=== PATIENT | male | born 1955 | race Two or more races ===

== ENCOUNTER → 2018-03-05 12:08 | Outpatient (CLI) | payer BC, SELFPAY ==
[2018-03-05 13:12] LABS: Anion Gap 9 (5-15); BUN 23 mg/dL (7-18); BUN/Creat Ratio 20.4 RATIO (10-20); Calcium,Total 9.4 mg/dL (8.5-10.1); Chloride 105 mmol/L (98-107); Creatinine, Serum 1.13 mg/dL (0.70-1.30); EST Glomerular Filtration Rate 70 mL/min (>60); Est Glom Filt Rate - Afr Amer 85 mL/min (>60); Glucose 106 mg/dL (74-106); Potassium 4.5 mmol/L (3.5-5.1); Sodium Level 142 mmol/L (136-145)
[2018-03-05 15:39] LABS: Hematocrit 41.6 % (40-54); Hemoglobin 14.1 g/dl (13.0-16.5); Mean Corp Hgb Conc 33.9 g/gl (32-36); Mean Corpuscular Hgb 32.9 pg (27.0-32.0); Mean Platelet Vol. 11.2 fl (6.2-12.0); Platelet Count 234 K/mm3 (150-450); RBC Distribution Width CV 14.4 % (11.6-14.6); RBC Distribution Width SD 49.4 fl (35.1-43.9); Red Blood Count 4.29 M/mm3 (4.6-6.2); White Blood Count 6.6 K/mm3 (4.4-11.0)
[2018-03-05 15:41] LABS: Scan Indicated on CBC? Y/N NO
== END ==
PROVIDERS: Family Provider Family Medicine; PCP Family Medicine
DX: I25.709 Atherosclerosis of coronary artery bypass graft(s), unspecified, with unspecified angina pectoris (principal)
CPT/HCPCS: 36415; 80048; 85027

== ENCOUNTER → 2019-04-05 11:57 | Outpatient (CLI) | payer BC, SELFPAY ==
[2019-04-05 11:31] VITALS: BMI 35.6
--- NOTE | 2019-04-05 12:01 | RAD_ITS ---
STUDY: X-RAY CHEST REASON FOR EXAM: Male, 64 years old. Cough. TECHNIQUE: PA and lateral views of the chest. COMPARISON: None. FINDINGS: Mild degree of vascular congestion and increased interstitial markings at the bases suggestive of mild CHF. There is no demonstrated pleural abnormality. Sternal cerclage wires and vascular clips are present from a prior sternotomy and coronary artery bypass graft procedure (CABG). Normal mediastinum and kaycee. Normal visualized pulmonary arteries. There is atherosclerotic calcification of the aortic arch with tortuosity. There are mild degenerative changes of the visualized thoracic spine. Normal visualized ribs, clavicles, and shoulders. There is no demonstrated abnormality of the visualized soft tissue structures of the upper abdomen. RAD/Chest PA and Lateral IMPRESSION: Findings suggest a mild degree of CHF. Electronically Signed: Sergio Bolivar, at 12:58 EDT , Service support ,
== END ==
PROVIDERS: Family Provider Family Medicine; PCP Family Medicine; Referring Provider Physician Assistant Surgical; Visit Provider Physician Assistant Surgical
DX: R05 Cough (principal)
CPT/HCPCS: 71046

== ENCOUNTER → 2019-04-26 12:37 | Outpatient (CLI) | payer BC, SELFPAY ==
[2019-04-05 11:31] VITALS: BMI 35.6
--- NOTE | 2019-04-26 12:40 | ECHOCS_ITS ---
Reason For Study: CHF Procedure This was a 2D Doppler, Color Flow transthoracic echocardiogram. Exam performed in department. Left Ventricle Normal LV size. Left ventricular systolic function is normal. The estimated ejection fraction is 60 %. Stage 1 diastolic dysfunction. No regional wall motion abnormalities noted. Right Ventricle Normal RV size. Normal systolic function. Atria Normal left atrium. Normal right atrium. Mitral Valve Normal mitral valve. Tricuspid Valve Normal tricuspid valve. Aortic Valve Trisinus/trileaflet aortic valve. Pulmonic Valve Normal pulmonic valve. Great Vessels Normal aortic root. The pulmonary artery is normal size. Normal inferior vena cava. Pericardium/Pleural No pericardial effusion. Medication 22 gauge I.V. with prn adaptor inserted into right arm. Diluted definity 4ml given slow IV push to enhance endocardial definition. MMode/2D Measurements & Calculations LVIDd: 5.6 cm IVSd: 1.2 cm Ao root diam: 3.3 cm LVIDs: 3.7 cm LVPWd: 1.1 cm RVDd: 4.2 cm FS: 33.8 % LAV(MOD-bp): 41.0 ml LVAd ap4: 29.6 cm2 SV(MOD-sp4): 46.4 ml LAV(MOD-bp) Indexed: 17.1 ml/m2 EDV(MOD-sp4): 87.9 ml LAV(MOD-sp2): 36.0 ml EDV(sp4-el): 93.0 ml LAV(MOD-sp4): 40.5 ml LVAs ap4: 18.9 cm2 ESV(MOD-sp4): 41.6 ml ESV(sp4-el): 42.6 ml EF(MOD-sp4): 52.7 % EF(sp4-el): 54.2 % SV(sp4-el): 50.4 ml LA A4 area: 16.8 cm2 LA dimension(2D): 4.1 cm RA A4 area: 13.1 cm2 Time Measurements MV dec time: 0.29 sec Doppler Measurements & Calculations MV E max carlos: 59.4 cm/sec Lat Peak E' Carlos: 10.7 cm/sec Med Peak E' Carlos: 9.4 cm/sec MV A max carlos: 77.5 cm/sec E/E' lat: 5.6 E/E' med: 6.3 MV E/A: 0.77 Ao V2 max: 159.3 cm/sec LV V1 max: 154.4 cm/sec PA V2 max: 149.3 cm/sec Ao max P.1 mmHg LV V1 max P.5 mmHg Interpretation Summary Normal LV size. Left ventricular systolic function is normal. The estimated ejection fraction is 60 %. Stage 1 diastolic dysfunction. Contrast injection was performed. Ordering Physician: Erika Faye Referring Physician: Erika Faye Performed By: Laurie Hart RDCS
== END ==
PROVIDERS: Family Provider Family Medicine; PCP Family Medicine; Referring Provider Family Medicine; Visit Provider Family Medicine
DX: I50.9 Heart failure, unspecified (principal)
CPT/HCPCS: 93306; Q9957; A4216; C8929

== ENCOUNTER 2019-08-11 11:36 | Emergency (ER) | payer BC, SELFPAY ==
[2019-04-05 11:31] VITALS: BMI 35.6
[2019-08-11 11:37] VITALS: BP 155/79; PULSE 86; RESP 17; TEMP 36.4; O2SAT 94; BMI 34.3
--- NOTE | 2019-08-11 12:16 | ED.DCSUM_ITS ---
History of Present Illness Chief Complaint: Nosebleed Informant: Patient Onset: Today Context: Sudden Onset Timing: Intermittent Narrative: Patient is a 64-year-old male with history of coronary artery disease on Plavix and aspirin presenting for nosebleed. He states he was blowing his nose at 1 AM and suddenly started bleeding from the right side. Is been bleeding intermittently since then. He states he has had some large clots in his nose. He denies any other complaints. He states he does feel like he swallowed some of the blood and is now printed out. He denies any shortness of breath, chest pain or lightheadedness. Past Medical History - Allergies and Home Meds Allergies/Adverse Reactions: Allergies No Known Allergies Allergy (Verified 08/11/19 11:36) Primary Care Physician: Erika Faye MD [Primary Care Provider] - Past Medical History: - - Coronary artery disease, hypertension Surgical History: angioplasty, coronary bypass surgery Smoking Status: Current every day smoker Review of Systems General: Denies: Chills, Fever, Sweats Eyes: Denies: Visual changes - bilaterally, Diplopia ENT: Reports: Rhinorrhea, - - Epistaxis. Denies: Sore throat Cardiovascular: Denies: Chest pain, Palpitations Respiratory: Reports: Cough. Denies: Dyspnea, Dyspnea on exertion Gastrointestinal: Denies: Abdominal pain, Nausea, Vomiting, Diarrhea, Melena, Hematochezia Genitourinary: Denies: Dysuria, Hematuria, Frequency Musculoskeletal: Denies: Back pain, Extremity Pain Skin: Denies: Rash, Wounds Neurological: Denies: Headache, Weakness, Numbness Physical Exam Vital Signs/Narrative: Vital Signs Temp Pulse Resp BP Pulse Ox 08/11/19 11:37 97.6 F L 86 17 155/79 H 94 Inital Vital Signs reviewed: Yes General: Well nourished, Well developed, No Acute Distress Head: Normocephalic, Atraumatic Eyes: Perrl, EOMI ENT: Moist mucous membranes, No rhinorrhea, TM's clear, Nasal congestion, - - Anterior septal bleeding noted from the right nares, clot noted in the back of the throat that is expectorated. No posterior bleeding visualized Neck: Supple, Nontender Cardiovascular: Regular rate, Regular rhythm, No murmurs Respiratory: No distress, CTA bilaterally, Chest nontender Abdomen: Soft, Nontender, Nondistended, Normal bowel sounds Back: Nontender, Normal Inspection Extremities: Nontender, No edema Skin: Normal color, No rash Neurological: Alert, Oriented x3, Cranial nerves II-XII grossly intact, Normal Strength, Normal Sensation Psychological: Normal affect, Normal Mood Diagnostic/Tx/Re-eval - Medical Decision Making Patient is evaluated for epistaxis. He appears to have epistaxis on the left side anteriorly. Afrin is applied as well as Matthus solution. Direct pressure is held. Patient did use a bleeding. The area of bleeding is visualized and I did attempt to cauterize it with silver nitrate however this was unsuccessful. A 5.5 cm anterior nasal packing was placed. Patient tolerated this well. No further bleeding. He is ambulated with no further bleeding. He was discharged home in a course of Augmentin. Patient is offered a prescription for tramadol or [place] for pain control with a nasal packing in place but declines. He does take Tylenol in the emergency room. Patient states he will hold his evening dose of Plavix tonight. This seems reasonable as extensive been in for 10 years. He will resume taking his Plavix tomorrow. Patient is counseled on signs and symptoms requiring return to the emergency room. Patient verbalizes agreement and understand this plan. Patient discharged home in stable and improved condition. ED Disposition - Plan for ED Patient: Disposition: Home or Assisted Living Diagnosis: Epistaxis Instructions: Nosebleed Prescriptions: Amox/Clavulanate Tablet [Augmentin Tablet] 875 mg PO Q12H #20 tab Prescription Printed Referrals: Erika Faye MD [Primary Care Provider] - Ezio Handley MD [STAFF PHYSICIAN] - Additional Instructions: Please call Dr. Handley, ENT for follow-up of your nasal packing. Your primary care doctor can also remove it if needed. Alternate Tylenol and ibuprofen as needed for discomfort from the packing. Take antibiotics while the packing is in place. Return the emergency room with any worsening symptoms or further bleeding.
[2019-08-11] MEDS: Mixture 30 ML Bottle 10 ML TOPICAL (12:39)
[2019-08-11] MEDS: Acetaminophen 500 MG Tablet 1000 MG PO (13:21)
[2019-08-11 14:10] VITALS: O2SAT 98
== END 2019-08-11 14:12 | disposition home or self-care (01) ==
PROVIDERS: Emergency Provider Emergency Medicine; PCP Family Medicine
DX: R04.0 Epistaxis (principal); I25.10 Atherosclerotic heart disease of native coronary artery without angina pectoris; I10 Essential (primary) hypertension; F17.200 Nicotine dependence, unspecified, uncomplicated; Z79.84 Long term (current) use of oral hypoglycemic drugs; Z79.02 Long term (current) use of antithrombotics/antiplatelets; Z79.82 Long term (current) use of aspirin; Z79.899 Other long term (current) drug therapy; Z95.1 Presence of aortocoronary bypass graft
CPT/HCPCS: 30901; 99283; A4216

== ENCOUNTER 2020-08-29 07:02 | Outpatient (RCR) | payer BC, SELFPAY ==
[2020-08-29] MEDS: COVID-19 VACC, MRNA(PFIZER)/PF 30 MCG/0.3 ML SYRINGE IM (12:11)
[2020-09-19] MEDS: COVID-19 VACC, MRNA(PFIZER)/PF 30 MCG/0.3 ML SYRINGE IM (12:02)
== END 2020-08-29 23:59 ==
LOC: IMMUN 07:02
PROVIDERS: PCP Family Medicine; Visit Provider Family Medicine
DX: Z23 Encounter for immunization (principal)
CPT/HCPCS: 0001A; 0002A; 91300

== ENCOUNTER 2022-11-03 13:50 | Inpatient (IN) | payer BC, MEDICARE, SELFPAY ==
[2022-11-03] VITALS (13 sets, daily range): BP systolic 105–133; BP diastolic 56–70; PULSE 72–96; RESP 17–22; TEMP 35.9–38; O2SAT 80–94; BMI 32.3; BMI 32.0
--- NOTE | 2022-11-03 14:00 | EKG12_ITS ---
Test Reason : Blood Pressure : / mmHG Vent. Rate : 087 BPM Atrial Rate : 087 BPM P-R Int : 144 ms QRS Dur : 138 ms QT Int : 384 ms P-R-T Axes : 021 061 -32 degrees QTc Int : 462 ms Normal sinus rhythm Possible Left atrial enlargement Right bundle branch block Inferior infarct , age undetermined Abnormal ECG Confirmed by DILAN ALCARAZ, ELROY ([id number]), acquisition editor ADY HATFIELD ([id number]) on 11/04/2022 10:18:23 AM Referred By: ALFONSO Confirmed By:ELROY KONG MD
--- NOTE | 2022-11-03 14:00 | RAD_ITS ---
INDICATION: cough EXAMINATION/TECHNIQUE: X-RAY - XR Chest 2 Views COMPARISON: 04/05/2019 FINDINGS: Chronic interstitial lung changes. Sternal cerclage wires and vascular clips are present from a prior sternotomy and coronary artery bypass graft procedure (CABG). The heart is not enlarged. Tortuous and calcified thoracic aorta. No pleural effusion or pneumothorax. Degenerative changes of the thoracic spine. RAD/Chest PA and Lateral IMPRESSION: Chronic lung changes. Cannot rule out an acute interstitial component. Electronically Signed: Alden Gramajo MD at 15:23 EDT ,
--- NOTE | 2022-11-03 14:05 | EDS_ITS ---
HPI <ACACIA Roberts - Last Filed: 11/03/22 16:34> History of Present Illness Chief Complaint: Shortness of Breath Narrative Narrative: Patient is a 67-year-old male with history of CAD, stage I CHF, hypertension, diabetes, COPD who smokes 1 pack/day presents to the emergency department with 3 to 4 days of worsening cough, congestion, body aches, shortness of breath. Patient states he does have low-grade fever. He was at the [facility], was negative for COVID-19. He states that he is coughing however is clear sputum. He was 88% on room air here. He has worsening shortness of breath on exertion. He denies any nausea or vomiting. Denies any sick contacts. PFS <ACACIA Roberts - Last Filed: 11/03/22 16:34> [facility] Medical History (Updated 11/03/22 @ 16:[address] Ezio Lomeli, DO) COPD (chronic obstructive pulmonary disease) Diabetes mellitus, type 2 H/O hemorrhoids Heart disease Hypertension RUTH (obstructive sleep apnea) Home Medications aspirin 81 mg tablet,delayed release (Adult Aspirin Regimen) 81 mg PO DAILY heart health 04/05/19 [History Last Taken Unknown] atorvastatin 20 mg tablet 40 mg PO DAILY cholestrol 04/05/19 [History Last Taken Unknown] clopidogrel 75 mg tablet (Plavix) 75 mg PO DAILY Anti platelet 04/05/19 [History Last Taken Unknown] ipratropium 0.5 mg-albuterol 2.5 mg/2.5 mL solution for nebulization 2.5 ml continuous nebulization ONCE ##1 04/05/19 [Clinic Last Taken Unknown] isosorbide dinitrate 5 mg tablet 30 mg PO DAILY Blood pressure 04/05/19 [History Last Taken Unknown] lisinopril 2.5 mg tablet 5 mg PO DAILY blood pressure 04/05/19 [History Last Taken Unknown] metformin 1,000 mg tablet 850 mg PO BID diabetes 04/05/19 [History Last Taken Unknown] ranolazine 1,000 mg tablet,extended release,12 hr (Ranexa) 1,000 mg PO BID blood thinner 04/05/19 [History Last Taken Unknown] Allergy/AdvReac Type Severity Reaction Status Date / Time No Known Allergies Allergy Verified 11/03/22 13:51 Surgical History Bypass graft stenosis H/O heart artery stent Social History (Updated 04/05/19 @ 15:05 by Tez KEITA, PA) Smoking Status: Current every day smoker tobacco type: cigarettes ROS <ACACIA Roberts - Last Filed: 11/03/22 16:34> ROS ED ROS Narrative Constitutional: Negative for weight loss, weakness. Positive for fever and chills Eyes: Negative for vision loss, vision change, double vision ENT: Negative for any sore throat, ear pain, congestion Cardiovascular: Negative for any chest pain, tightness, palpitations Respiratory: Negative for any c hemoptysis.positive for cough, sputum production, positive for dyspnea, dyspnea on exertion, orthopnea Gastrointestinal: Negative for any abdominal pain, nausea, vomiting, diarrhea, constipation, blood in stool, blood in vomit : Negative for any urinary frequency, dysuria, retention, blood in urine Muscle skeletal: Negative for any muscle joint pain, stiffness, myalgias, arthralgias, neck pain, back pain Neurological: Negative for any headache, syncope, numbness or tingling, dizziness Skin: Negative for any rashes, lumps, itching, abrasions, lacerations Psychiatric: Negative for any depression, anxiety, stress, suicidal ideation, homicidal ideation Hematologic: Negative for any easy bruising, excessive bruising, easy bleeding Allergies: Negative for any eczema, hives, rash EXAM <ACACIA Roberts - Last Filed: 11/03/22 16:34> Physical Exam Narrative Exam Narrative: Vital signs reviewed Patient was 88% on room air upon initial arrival however after sitting he was 91%. Oral temp was negative for any fever at this time. Patient looks to be in mild distress secondary to cough, shortness of breath. He is able speak complete sentences. HEET: Head normocephalic atraumatic, TMs clear bilaterally. Posterior pharynx is clear, moist mucous membranes. Nares clear bilaterally. Neck: Supple with no lymphadenopathy or tenderness. No signs of meningismus, negative jolt sign. Cardiac: Regular rate and rhythm no murmurs gallops or rubs, equal peripheral pulses bilaterally. Respiratory: Lungs clear to auscultation bilaterally. No chest tenderness. Diminished in bilateral bases, no wheezing on initial exam Abdomen: Soft, nontender, nondistended. No abdominal bruit or pulsatile masses. No hepatosplenomegaly Extremities: No peripheral edema, no signs of gross trauma or deformity. Active full range of motion of all extremities. Neuro: Cranial nerves II through XII intact, no focal neurological deficits. Skin: Clean dry and intact with no rash, purpura, petechiae, vesicles or pustules. Backs/flank: No CVA tenderness, no midline spinal tenderness, no deformity. Psych: Normal mood and affect. No SI, HI or acute psychosis. Const Vital Signs: 11/03/22 13:51 11/03/22 14:17 11/03/22 14:22 Temperature 99.1 F Temperature Source Temporal Pulse Rate 87 89 Respiratory Rate 18 22 H Respiratory Effort Short of Breath Respiratory Pattern Normal Tachypnea Blood Pressure 133/68 H Blood Pressure Mean 89 Pulse Ox 88 Oxygen Delivery Method Room Air Nasal Cannula Oxygen Flow Rate (L/min) 3 11/03/22 15:58 11/03/22 16:06 Temperature Temperature Source Pulse Rate 96 Respiratory Rate 20 H Respiratory Effort Respiratory Pattern Normal Blood Pressure Blood Pressure Mean Pulse Ox 80 Oxygen Delivery Method Room Air Oxygen Flow Rate (L/min) Positive well nourished <Dr. Damian Callaway DO - Last Filed: 11/03/22 17:16> Physical Exam Const Vital Signs: 11/03/22 13:51 11/03/22 14:17 11/03/22 14:22 Temperature 99.1 F Temperature Source Temporal Pulse Rate 87 89 Respiratory Rate 18 22 H Respiratory Effort Short of Breath Respiratory Pattern Normal Tachypnea Blood Pressure 133/68 H Blood Pressure Mean 89 Pulse Ox 88 Oxygen Delivery Method Room Air Nasal Cannula Oxygen Flow Rate (L/min) 3 11/03/22 15:58 11/03/22 16:06 Temperature Temperature Source Pulse Rate 96 Respiratory Rate 20 H Respiratory Effort Respiratory Pattern Normal Blood Pressure Blood Pressure Mean Pulse Ox 80 Oxygen Delivery Method Room Air Oxygen Flow Rate (L/min) MDM <ACACIA Roberts - Last Filed: 11/03/22 16:34> MDM Lab Data Labs: Laboratory Results - last 24 hr 11/03/22 11/03/22 11/03/22 14:10 14:10 14:10 WBC 7.6 RBC 4.27 L Hgb 15.0 Hct 42.9 MCV 100.5 H MCH 35.1 H MCHC 35.0 RDW Std Deviation 57.1 H RDW Coeff of Olu 15.4 H Plt Count 172 MPV 11.0 Immature Gran % (Auto) 0.100 Neut % (Auto) 81.5 H Lymph % (Auto) 8.1 L [place] % (Auto) 9.9 Eos % (Auto) 0.0 Baso % (Auto) 0.4 Absolute Neuts (auto) 6.2 Absolute Lymphs (auto) 0.62 L Nucleated RBC % 0 Sodium 138 Potassium 4.4 Chloride 105 Carbon Dioxide 25.0 Anion Gap 8 BUN 22 H Creatinine 1.31 H Estim Creat Clear Calc 62.69 Est GFR (MDRD) Af Amer 70 Est GFR (MDRD) Non-Af 58 L BUN/Creatinine Ratio 16.8 Glucose 134 H Calcium 9.0 Troponin I High Sens 28 B-Natriuretic Peptide 60.5 Radiography Diagnostic Testing: Clinical Impression(s) from Imaging Studies Chest X-Ray 11/03/22 14:00 IMPRESSION: Chronic lung changes. Cannot rule out an acute interstitial component. Electronically Signed: Alden Gramajo MD at 15:23 EDT , EKG EKG shows normal sinus rhythm, rate of 87 bpm right bundle branch block: Attestation: I personally reviewed and interpreted this EKG as follows: Comments: EKG shows 87 bpm, OR interval 144 ms, QRS duration 138 ms, no acute ST elevation, no acute infarct noted. Treatment and Re-Evaluation :: All radiologic examinations were read, reviewed by the emergency department attending. From these reads, a plan of care will be put in place. Patient appears to be in mild respiratory distress, patient was 88% on room air, he was placed on the monitor, he has been feeling unwell for the last 3 to 4 days. Patient will receive a full respiratory work-up, laboratory values, two- view chest x-ray. He will receive 2 breathing treatment as well as oral steroids. Patient will receive a respiratory panel secondary to his hypoxia and possible admission. Patient denies any specific chest pain. Patient's chest x-ray shows chronic lung changes, patient's patient's laboratory values show a normal CBC, patient's chemistries show slight renal sufficiency with a creatinine of 1.3, in 2017 in February he was 1.13. Patient did receive 2 breathing treatments, steroids by mouth. On reassessment, the patient was still 85 to 87%. However he had much more wheezing than original exam. Patient was ordered 2 more breathing treatments. Patient did receive a rapid respiratory panel, this is yet to come back. This is concerning for any metapneumovirus, influenza, COVID type viruses. Patient is still hypoxic, still looks to be in minimal distress. I do believe the patient would benefit from admission. I spoke with the patient he is agreeable. Talk with the hospitalist, he is agreeable for admission for COPD exacerbation, hypoxia. <Dr. Damian Callaway, DO - Last Filed: 11/03/22 17:16> [facility] Narrative Medical decision making narrative: Patient appears to be in mild respiratory distress, patient was 88% on room air, he was placed on the monitor, he has been feeling unwell for the last 3 to 4 da ys. Patient will receive a full respiratory work-up, laboratory values, two- view chest x-ray. He will receive 2 breathing treatment as well as oral steroids. Patient will receive a respiratory panel secondary to his hypoxia and possible admission. Patient denies any specific chest pain. Patient's chest x-ray shows chronic lung changes, patient's patient's laboratory values show a normal CBC, patient's chemistries show slight renal sufficiency with a creatinine of 1.3, in 2017 in February he was 1.13. Patient did receive 2 breathing treatments, steroids by mouth. On reassessment, the patient was still 85 to 87%. However he had much more wheezing than original exam. Patient was ordered 2 more breathing treatments. Patient did receive a rapid respiratory panel, this is yet to come back. This is concerning for any metapneumovirus, influenza, COVID type viruses. Patient is still hypoxic, still looks to be in minimal distress. I do believe the patient would benefit from admission. I spoke with the patient he is agreeable. Talk with the hospitalist, he is agreeable for admission for COPD exacerbation, hypoxia. This patient was seen with a PA/[employer] DEVELOPER Individually assessed they patient including history and physical. I have reviewed everything on the chart that is available and agree with the documentation provided by the PA/[employer] DEVELOPER including discussion about the assessment, treatment plan, discussion, and return precautions. 67-year-old gentleman presenting with shortness of breath. He is treated with breathing treatments and Solu-Medrol. Patient noted to be hypoxic on arrival 88. After treatments he still hypoxic and dropped down to 80 just sitting. Breathing treatments did open him up however. Viral respiratory panel came back and shows parainfluenza virus. Patient admitted in stable condition. Lab Data Attestation: I reviewed the patient's lab results. Labs: Laboratory Results - last 24 hr 11/03/22 11/03/22 11/03/22 14:10 14:10 14:10 WBC 7.6 RBC 4.27 L Hgb 15.0 Hct 42.9 MCV 100.5 H MCH 35.1 H MCHC 35.0 RDW Std Deviation 57.1 H RDW Coeff of Olu 15.4 H Plt Count 172 MPV 11.0 Immature Gran % (Auto) 0.100 Neut % (Auto) 81.5 H Lymph % (Auto) 8.1 L [place] % (Auto) 9.9 Eos % (Auto) 0.0 Baso % (Auto) 0.4 Absolute Neuts (auto) 6.2 Absolute Lymphs (auto) 0.62 L Nucleated RBC % 0 Sodium 138 Potassium 4.4 Chloride 105 Carbon Dioxide 25.0 Anion Gap 8 BUN 22 H Creatinine 1.31 H Estim Creat Clear Calc 62.69 Est GFR (MDRD) Af Amer 70 Est GFR (MDRD) Non-Af 58 L BUN/Creatinine Ratio 16.8 Glucose 134 H Calcium 9.0 Troponin I High Sens 28 B-Natriuretic Peptide 60.5 Radiography Diagnostic Testing: Clinical Impression(s) from Imaging Studies Chest X-Ray 11/03/22 14:00 IMPRESSION: Chronic lung changes. Cannot rule out an acute interstitial component. Electronically Signed: Alden Gramajo MD at 15:23 EDT , All radiologic examinations were read, reviewed by the emergency department attending. From these reads, a plan of care will be put in place. Discharge Plan Triage Chief Complaint: Shortness of Breath Other Complaint: Fever ED Midlevel Provider: Efra Luciano ED Provider: Damian Callaway Dx/Rx/DC Orders Clinical Impression: Acute exacerbation of chronic obstructive pulmonary disease, Hypoxia Primary Care Provider: Erika Faye Disposition Disposition: Home, Self Care
--- NOTE | 2022-11-03 14:08 | ED.RN ---
NO OLD EKGS
[2022-11-03 14:18] LABS: Absolute Lymphocyte Count 0.62 X10^3/uL (0.83-4.51); Absolute Neutrophil Count 6.2 X10^3/uL (2.0-7.7); Basophil# 0.03 X10^3/uL; Basophil% 0.4 % (0-1); Hematocrit 42.9 % (40-54); Lymphocyte # 0.62 X10^3/ul (0.83-4.51); Lymphocyte % 8.1 % (19-41); Mean Corpuscular Hgb 35.1 pg (27.0-32.0); Mean Corpuscular Volume 100.5 fL (80-94); Monocyte# 0.76 X10^3/uL; Monocyte% 9.9 % (0-10); NRBC Flagged by Analyzer 0 % (0-5); Neutrophil # 6.22 X10^3/uL (2.7-7.7); Neutrophil % 81.5 % (47-70); Platelet Count 172 K/mm3 (150-450); RBC Distribution Width CV 15.4 % (11.6-14.6); RBC Distribution Width SD 57.1 fl (35.1-43.9); Red Blood Count 4.27 M/mm3 (4.6-6.2); White Blood Count 7.6 K/mm3 (4.4-11.0)
[2022-11-03] MEDS: Albuterol 2.5 MG/3 ML VIAL.NEB. INHALATION ×2 (14:22→16:06)
[2022-11-03] MEDS: Ipratropium/Albuterol Sulfate 3 ML AMPUL.NEB INHALATION ×4 (14:22→22:56)
[2022-11-03 14:32] LABS: BNP,B-Type NATRIURETIC PEPTIDE 60.5 pg/mL (0-100)
[2022-11-03 14:35] LABS: Anion Gap 8 (5-15); BUN 22 mg/dL (7-18); BUN/Creat Ratio 16.8 RATIO (10-20); Chloride 105 mmol/L (98-107); Creatinine, Serum 1.31 mg/dL (0.70-1.30); EST Glomerular Filtration Rate 58 mL/min (>60); Est Glom Filt Rate - Afr Amer 70 mL/min (>60); Estimated Creatinine Clearance 62.69 ml/min; Glucose 134 mg/dL (74-106); Potassium 4.4 mmol/L (3.5-5.1); Sodium Level 138 mmol/L (136-145); Troponin-I HS 28 pg/mL (3.0-78.0)
[2022-11-03] MEDS: predniSONE 20 MG Tablet 40 MG PO (14:48)
--- NOTE | 2022-11-03 16:27 | HP.PCM.HOS_ITS ---
[facility] - General General Date of Service: 11/03/22 Chief Complaint: shortness of breath. HPI Narrative DENISE HARDIN, is a 67 M who presents with shortness of breath. Over the past few days, patient has just been short of breath. Is coughing which is productive but for clear phlegm. No fever or chills. Patient presented to an urgent care today and was noted to be hypoxic. They did check him for COVID-19 there and was reportedly negative. The ER physician and the patient told me. Patient was wheezing and was hypoxic with pulse ox around 84%. Patient was placed on oxygen and received 40 mg of prednisone as well as bronchodilators. He is currently feeling better. Patient states that he is never been hospitalized for his COPD. [facility] Medical History (Updated 11/03/22 @ 16:[address] Ezio Lomeli DO) COPD (chronic obstructive pulmonary disease) Diabetes mellitus, type 2 H/O hemorrhoids Heart disease Hypertension RUTH (obstructive sleep apnea) Home Medications aspirin 81 mg tablet,delayed release (Adult Aspirin Regimen) 81 mg PO DAILY 04/05/19 [History Last Taken Unknown] atorvastatin 20 mg tablet 20 mg PO DAILY 04/05/19 [History Last Taken Unknown] clopidogrel 75 mg tablet (Plavix) 75 mg PO DAILY 04/05/19 [History Last Taken Unknown] ipratropium 0.5 mg-albuterol 2.5 mg/2.5 mL solution for nebulization 2.5 ml continuous nebulization ONCE ##1 04/05/19 [Clinic Last Taken Unknown] isosorbide dinitrate 5 mg tablet 5 mg PO BID 04/05/19 [History Last Taken Unknown] lisinopril 2.5 mg tablet 2.5 mg PO DAILY 04/05/19 [History Last Taken Unknown] metformin 1,000 mg tablet 1,000 mg PO DAILY 04/05/19 [History Last Taken Unknown] ranolazine 1,000 mg tablet,extended release,12 hr (Ranexa) 1,000 mg PO BID 04/05/19 [History Last Taken Unknown] amoxicillin 875 mg-potassium clavulanate 125 mg tablet 875 mg PO Q12H #20 tabs 08/11/19 [Rx Last Taken Unknown] Allergy/AdvReac Type Severity Reaction Status Date / Time No Known Allergies Allergy Verified 11/03/22 13:51 Surgical History Bypass graft stenosis H/O heart artery stent Social History (Updated 04/05/19 @ 15:05 by Tez KEITA, NEELA) Smoking Status: Current every day smoker tobacco type: cigarettes ROS ROS Narrative All review of systems were negative except as mentioned above in the history of present illness and the other review of systems. Vital Signs Vital Signs Vital Signs: 11/03/22 13:51 11/03/22 14:17 11/03/22 14:22 Temperature 37.3 C Temperature Source Temporal Pulse Rate 87 89 Respiratory Rate 18 22 H Respiratory Effort Short of Breath Respiratory Pattern Normal Tachypnea Blood Pressure 133/68 H Blood Pressure Mean 89 Pulse Ox 88 Oxygen Delivery Method Room Air Nasal Cannula Oxygen Flow Rate (L/min) 3 11/03/22 15:58 Temperature Temperature Source Pulse Rate Respiratory Rate Respiratory Effort Respiratory Pattern Blood Pressure Blood Pressure Mean Pulse Ox 80 Oxygen Delivery Method Room Air Oxygen Flow Rate (L/min) Weight Weight: 111.13 kg Body Mass Index (BMI) 32.3 Physical Exam Narrative General: Alert, Oriented x3, Cooperative, slightly diaphoretic HEENT: Atraumatic, no icterus normocephalic Oral: Moist Mucosa, No Gingival or Mucosal Lesions/ Ulcerations Neck: Supple, no thyromegaly Lungs: Slightly diminished. Faint expiratory wheeze. Cardiovascular: Regular rate, Normal S1, Normal S2, No murmurs Abdomen: Bowel Sounds Present, Soft, Non Tender, Non-Distended, No Hepato- splenomegaly Extremities: No clubbing, No cyanosis, No edema, Capillary Refill Less than 3 Seconds Skin: No rashes, No breakdown Musculoskeletal: No Tenderness to Palpation of Joints or Extremities Neurological: Neuro grossly intact Psych/Mental Status: Normal Affect, Appropriate Results Lab / Micro Data Attestation: I reviewed the patient's lab results. Result Diagrams: 11/03/22 14:10 11/03/22 14:10 Labs: Laboratory Results - last 24 hr 11/03/22 14:10: WBC 7.6, RBC 4.27 L, Hgb 15.0, Hct 42.9, MCV 100.5 H, MCH 35.1 H , MCHC 35.0, RDW Std Deviation 57.1 H, RDW Coeff of Olu 15.4 H, Plt Count 172, MPV 11.0, Immature Gran % (Auto) 0.100, Neut % (Auto) 81.5 H, Lymph % (Auto) 8.1 L, [place] % (Auto) 9.9, Eos % (Auto) 0.0, Baso % (Auto) 0.4, Absolute Neuts (auto) 6.2, Absolute Lymphs (auto) 0.62 L, Nucleated RBC % 0 11/03/22 14:10: Sodium 138, Potassium 4.4, Chloride 105, Carbon Dioxide 25.0, Anion Gap 8, BUN 22 H, Creatinine 1.31 H, Estim Creat Clear Calc 62.69, Est GFR (MDRD) Af Amer 70, Est GFR (MDRD) Non-Af 58 L, BUN/Creatinine Ratio 16.8, Glucose 134 H, Calcium 9.0, Troponin I High Sens 28 11/03/22 14:10: B-Natriuretic Peptide 60.5 EKG Initial EKG: Attestation: I personally reviewed and interpreted this EKG as follows: Prior EKG tracings: available for review EKG Rhythm Intrepretation: Sinus Rhythm (Right bundle branch block) Radiology Impression Chest X-Ray 11/03/22 14:00 IMPRESSION: Chronic lung changes. Cannot rule out an acute interstitial component. Electronically Signed: Alden Gramajo MD at 15:23 EDT , Assessment & Plan Assessment/Plan (1) COPD with acute exacerbation: PLAN: Patient was hypoxic down to 84% on room air. Patient with expiratory wheezes. Patient has known history of COPD. Feels that acute exacerbation of COPD. Patient was checked for COVID-19 at an outside urgent care that patient reports is being negative. A respiratory panel here has been ordered and is currently pending. Plan: * Bronchodilators as well as IV methylprednisolone. * When patient is ready for discharge, check an ambulatory pulse ox to see if he would require oxygen. Patient normally uses oxygen through CPAP but his oxygen condenser is broken so has not used that for few weeks. PLAN: Plan Chronic conditions * Coronary artery disease: Status post CABG. Continue with aspirin, clopidogrel and atorvastatin. Continue with isosorbide and lisinopril and ranolazine * Hypertension: Continue with lisinopril * Diabetes mellitus type 2: Continue with metformin and add sliding scale. * Obstructive sleep apnea: Patient to bring in his home CPAP and we can use. Run and run oxygen through it as able. * Tobacco abuse: Patient smokes a pack a day. Discussed with patient how COPD further worsens and compromises his overall pulmonary status potentially making his lung structurally worse and making him overall more at risk for these exacerbations of his COPD. Advised cessation. We will provide a nicoti ne patch. VTE prophylaxis: Low molecular weight heparin. CODE STATUS: Addressed with the patient. Patient is full CODE STATUS. Disposition: To be determined. At this point time out anticipate the patient having a slow recovery with his hypoxia and COPD. Anticipate hospitalization 2 days. Charges/Coding Visit Charges Inpatient E&M: 56006 Init Hosp L2
[2022-11-03 18:46] LABS: Bedside Glucose 125 mg/dL (74-106)
[2022-11-03] MEDS: Aspirin E.C. 81 MG Tablet PO (21:09)
[2022-11-03] MEDS: Clopidogrel Bisulfate 75 MG Tablet PO (21:09)
[2022-11-03] MEDS: Ranolazine 500 MG Tablet 1000 MG PO (21:09)
[2022-11-03] MEDS: Methylprednisolone Sod Succ 40 MG/ML VIAL IV (21:09)
[2022-11-03] MEDS: metFORMIN HCl 850 MG Tablet PO (21:09)
[2022-11-04] VITALS (11 sets, daily range): BP systolic 110–123; BP diastolic 60–84; PULSE 59–79; RESP 14–20; TEMP 36.1–36.7; O2SAT 91–94
[2022-11-04] MEDS: Ipratropium/Albuterol Sulfate 3 ML AMPUL.NEB INHALATION ×6 (03:28→22:50)
[2022-11-04] MEDS: Methylprednisolone Sod Succ 40 MG/ML VIAL IV ×3 (06:39→21:06)
[2022-11-04] MEDS: Insulin Lispro 100 UNIT/ML INSULN.PEN SC ×2 (06:40→11:15)
[2022-11-04 06:55] LABS: Bedside Glucose 157 mg/dL (74-106)
--- NOTE | 2022-11-04 07:30 | PN.HOSP_ITS ---
Reason for Visit Reason for Visit: Diagnoses Chronic obstructive pulmonary disease with (acute) exacerbation (11/03/22) Subjective Subjective Breathing better. Still requiring oxygen around 5l/m Objective Data Objective Data Vital Signs: Vital Signs Temp Pulse Resp BP Pulse Ox O2 Del Method O2 Flow Rate 36.1 C L 59 L 20 H 121/84 H 92 Nasal Cannula 5 11/04/22 03:00 11/04/22 03:27 11/04/22 03:27 11/04/22 03:00 11/04/22 03:27 11/04/22 03:27 11/04/22 03:27 Oxygen Flow Rate (L/min) 5 Oxygen Delivery Method Nasal Cannula Weight: 110.2 kg Body Mass Index (BMI) 32.0 Intake & Output: Intake and Output for Last 24 Hours 11/02/22 11/03/22 11/04/22 23:59 23:59 23:59 Intake Total 625 / 625 240 / 240 Output Total 1100 / 1100 Balance 625 / 625 -860 / -860 Lab / Micro Data Result Diagrams: 11/03/22 14:10 11/03/22 14:10 Labs: Laboratory Results - last 24 hr 11/03/22 14:10: WBC 7.6, RBC 4.27 L, Hgb 15.0, Hct 42.9, MCV 100.5 H, MCH 35.1 H , MCHC 35.0, RDW Std Deviation 57.1 H, RDW Coeff of Olu 15.4 H, Plt Count 172, MPV 11.0, Immature Gran % (Auto) 0.100, Neut % (Auto) 81.5 H, Lymph % (Auto) 8.1 L, [place] % (Auto) 9.9, Eos % (Auto) 0.0, Baso % (Auto) 0.4, Absolute Neuts (auto) 6.2, Absolute Lymphs (auto) 0.62 L, Nucleated RBC % 0 11/03/22 14:10: Sodium 138, Potassium 4.4, Chloride 105, Carbon Dioxide 25.0, Anion Gap 8, BUN 22 H, Creatinine 1.31 H, Estim Creat Clear Calc 62.69, Est GFR (MDRD) Af Amer 70, Est GFR (MDRD) Non-Af 58 L, BUN/Creatinine Ratio 16.8, Glucose 134 H, Calcium 9.0, Troponin I High Sens 28 11/03/22 14:10: B-Natriuretic Peptide 60.5 11/03/22 18:13: POC Glucose 125 H 11/04/22 06:34: POC Glucose 157 H Micro: Microbiology 11/03/22 14:10 Mucosa - Nose Respiratory Panel (PCR) - Final Parainfluenza 2 Radiography Diagnostic Testing: Radiology Impression Chest X-Ray 11/03/22 14:00 IMPRESSION: Chronic lung changes. Cannot rule out an acute interstitial component. Electronically Signed: Alden Gramajo MD at 15:23 EDT , Physical Exam Const alert and no apparent distress HEENT head/scalp atraumatic and moist oral mucous membranes Resp normal respiratory effort and no retractions Resp Narrative: diminished. exp wheeze. Cardio regular rate, regular rhythm, S1 normal heart sound and S2 normal heart sound GI normal to inspection, nondistended, normoactive bowel sounds, soft to palpation, non-tender and non-distended Extremity normal to inspection Assessment & Plan Assessment/Plan (1) COPD with acute exacerbation: PLAN: Patient was hypoxic down to 84% on room air. Patient with expiratory wheezes. Patient has known history of COPD. Feels that acute exacerbation of COPD. Patient was checked for COVID-19 at an outside urgent care that patient reports is being negative. A respiratory panel here has been ordered and is currently pending. Exacerbated by Parainfluenza 2 virus Plan: * Bronchodilators as well as IV methylprednisolone. * When patient is ready for discharge, check an ambulatory pulse ox to see if he would require oxygen. Patient normally uses oxygen through CPAP but his oxygen condenser is broken so has not used that for few weeks. PLAN: Plan Chronic conditions * Coronary artery disease: Status post CABG. Continue with aspirin, clopidogrel and atorvastatin. Continue with isosorbide and lisinopril and ranolazine * Hypertension: Continue with lisinopril * Diabetes mellitus type 2: Continue with metformin and add sliding scale. * Obstructive sleep apnea: Patient to bring in his home CPAP and we can use. Run and run oxygen through it as able. * Tobacco abuse: Patient smokes a pack a day. Discussed with patient how COPD further worsens and compromises his overall pulmonary status potentially making his lung structurally worse and making him overall more at risk for these exacerbations of his COPD. Advised cessation. We will provide a nicotine patch. VTE prophylaxis: Low molecular weight heparin. CODE STATUS: Addressed with the patient. Patient is full CODE STATUS. Disposition: To be determined. Patient was asking about going on vacation to [place] where he will be fishing and in a cabin that is remote. Explained to him that this not a good idea particular if he is able to be discharged soon and would recommend taking time to get better. Charges/Coding Visit Charges Inpatient E&M: 52720 Subs Hosp L2
[2022-11-04] MEDS: Isosorbide Mononitrate 60 MG Tablet PO (08:59)
[2022-11-04] MEDS: Ranolazine 500 MG Tablet 1000 MG PO ×2 (08:59→21:06)
[2022-11-04] MEDS: Lisinopril 40 MG Tablet PO (08:59)
[2022-11-04] MEDS: Atorvastatin Calcium 20 MG Tablet PO (08:59)
[2022-11-04] MEDS: Enoxaparin 40 MG/0.4 ML Syringe SC (08:59)
[2022-11-04] MEDS: metFORMIN HCl 850 MG Tablet PO ×2 (09:11→17:24)
--- NOTE | 2022-11-04 10:11 | PN_ITS ---
Progress Note In reviewing the patient's medical history, this patient would be a good candidate for pulmonary rehabilitation. It is recommended the patient be seen by a seat trimmer and have recent PFTs done before referring to pulmonary rehabilitation. АННА Gibbons BARREL RIFLER HOOK Clinical Digital Marketing Apprentice Rehabilitation
--- NOTE | 2022-11-04 10:11 | PCM.PN.BLA ---
Progress Note In reviewing the patient's medical history, this patient would be a good candidate for pulmonary rehabilitation. It is recommended the patient be seen by a switchboard wire worker helper and have recent PFTs done before referring to pulmonary rehabilitation. АННА Gibbons PHYSICS TECHNICAL OFFICER Clinical [employer] Principal Rehabilitation
[2022-11-04 11:45] LABS: Bedside Glucose 155 mg/dL (74-106)
[2022-11-04] MEDS: terbinafine HCL 250 MG TABLET PO (14:11)
[2022-11-04] MEDS: 0.9% Saline Lock 10 ML Syringe IV (14:16)
--- NOTE | 2022-11-04 14:49 | CASEMGMT ---
FREDDY DIAZ Face to Face with patient for initial transition planning/care coordination assessment. FREDDY DIZA introduced self and role at [facility]. Patient lying in bed, alert and oriented. Patient willing to participate in assessment and is able to answer all questions appropriately. Care providers, pharmacy, and demographics verified. Patient wishes to discharge home, denies need for home health at this time. Patient states he has no further needs or concerns at this time. CM to follow for discharge planning needs that may arise. PCP: Yunier Specialists: Minerva, applied psychology chair, [facility] Preferred Pharmacy: [facility] Insurance: MARTÍNEZ Sanders Prescription Benefit: yes Living Will/HPOA: yes, Khadra Gómez LNOK: Living Arrangements: Patient lives with in a singles story home with 1 step to enter the home. Patient states he is independent at home. Transportation: self, DME/HHC: Patient has cpap, pulse ox, and home concentrator that he purchased on his own. Patient states that concentrator is not working. CM to follow for home oxygen setup. FREDDY DIAZ reviewed DME agencies with patient and prefers [facility]. No previous HHC or SNF Disposition Plan: Patient to discharge home with family support and follow-up plans in place. Antoinette PADILLA, RN, CM
[2022-11-04 17:51] LABS: Bedside Glucose 131 mg/dL (74-106)
[2022-11-04] MEDS: Clopidogrel Bisulfate 75 MG Tablet PO (21:06)
[2022-11-04] MEDS: Aspirin E.C. 81 MG Tablet PO (21:06)
[2022-11-04 21:30] LABS: Bedside Glucose 140 mg/dL (74-106)
[2022-11-05] VITALS (7 sets, daily range): BP systolic 123–133; BP diastolic 75–84; PULSE 63–77; RESP 14–21; TEMP 36.5–36.7; O2SAT 86–96
[2022-11-05] MEDS: Ipratropium/Albuterol Sulfate 3 ML AMPUL.NEB INHALATION ×3 (03:30→11:30)
[2022-11-05] MEDS: Methylprednisolone Sod Succ 40 MG/ML VIAL IV ×2 (06:43→14:25)
[2022-11-05] MEDS: 0.9% Saline Lock 10 ML Syringe IV ×2 (06:43→14:25)
[2022-11-05 07:10] LABS: Bedside Glucose 129 mg/dL (74-106)
--- NOTE | 2022-11-05 07:57 | PN.HOSP_ITS ---
Reason for Visit Reason for Visit: Diagnoses Chronic obstructive pulmonary disease with (acute) exacerbation (11/03/22) Subjective Subjective Breathing better. Still requiring oxygen, but decreased to 4l/m Objective Data Objective Data Vital Signs: Vital Signs Temp Pulse Resp BP Pulse Ox O2 Del Method O2 Flow Rate 36.7 C 65 16 133/84 H 96 Nasal Cannula 4 11/05/22 05:00 11/05/22 05:00 11/05/22 05:00 11/05/22 05:00 11/05/22 05:00 11/05/22 07:34 11/05/22 07:34 Oxygen Flow Rate (L/min) 4 Oxygen Delivery Method Nasal Cannula Weight: 110.2 kg Body Mass Index (BMI) 32.0 Intake & Output: Intake and Output for Last 24 Hours 11/03/22 11/04/22 11/05/22 23:59 23:59 23:59 Intake Total 625 / 625 1300 / 1300 30 / 30 Output Total 1100 / 1100 Balance 625 / 625 200 / 200 30 / 30 Lab / Micro Data Result Diagrams: 11/03/22 14:10 11/03/22 14:10 Labs: Laboratory Results - last 24 hr 11/04/22 11:13: POC Glucose 155 H 11/04/22 17:26: POC Glucose 131 H 11/04/22 20:55: POC Glucose 140 H 11/05/22 06:40: POC Glucose 129 H Micro: Microbiology 11/03/22 14:10 Mucosa - Nose Respiratory Panel (PCR) - Final Parainfluenza 2 Physical Exam Const alert and no apparent distress HEENT head/scalp atraumatic and moist oral mucous membranes Resp Resp Narrative: improved air movement. exp wheezes. Cardio regular rate, regular rhythm, S1 normal heart sound and S2 normal heart sound GI normal to inspection, nondistended, normoactive bowel sounds, soft to palpation, non-tender and non-distended Assessment & Plan Assessment/Plan (1) COPD with acute exacerbation: PLAN: Patient was hypoxic down to 84% on room air. Patient with expiratory wheezes. Patient has known history of COPD. Feels that acute exacerbation of COPD. Patient was checked for COVID-19 at an outside urgent care that patient reports is being negative. A respiratory panel here has been ordered and is currently pending. Exacerbated by Parainfluenza 2 virus Plan: * Bronchodilators as well as IV methylprednisolone. * When patient is ready for discharge, check an ambulatory pulse ox to see if he would require oxygen. Patient normally uses oxygen through CPAP but his oxygen condenser is broken so has not used that for few weeks. PLAN: Plan Chronic conditions * Coronary artery disease: Status post CABG. Continue with aspirin, clopidogrel and atorvastatin. Continue with isosorbide and lisinopril and ranolazine * Hypertension: Continue with lisinopril * Diabetes mellitus type 2: Continue with metformin and add sliding scale. * Obstructive sleep apnea: Patient to bring in his home CPAP and we can use. Run and run oxygen through it as able. * Tobacco abuse: Patient smokes a pack a day. Discussed with patient how COPD further worsens and compromises his overall pulmonary status potentially making his lung structurally worse and making him overall more at risk for th liam exacerbations of his COPD. Advised cessation. We will provide a nicotine patch. VTE prophylaxis: Low molecular weight heparin. CODE STATUS: Addressed with the patient. Patient is full CODE STATUS. Disposition: home pending oxygen evaluation. I discouraged him going to [place] with or w/o oxygen given this hospitalization. Charges/Coding Visit Charges Inpatient E&M: 96834 Subs Hosp L2
[2022-11-05] MEDS: Ranolazine 500 MG Tablet 1000 MG PO (08:26)
[2022-11-05] MEDS: Isosorbide Mononitrate 60 MG Tablet PO (08:26)
[2022-11-05] MEDS: Atorvastatin Calcium 20 MG Tablet PO (08:26)
[2022-11-05] MEDS: Lisinopril 40 MG Tablet PO (08:27)
[2022-11-05] MEDS: metFORMIN HCl 850 MG Tablet PO (08:27)
[2022-11-05] MEDS: terbinafine HCL 250 MG TABLET PO (08:27)
[2022-11-05] MEDS: Enoxaparin 40 MG/0.4 ML Syringe SC (08:30)
--- NOTE | 2022-11-05 10:58 | DCINST_ITS ---
Discharge Instructions Diet Discharge Diet: No restrictions Activity Discharge Activity: Return to Normal Activity (slowly ease back into your normal routine. ) Dressing / Incision Call your doctor if you observe: Shortness of breath Follow Up Care Test Results: Test results from this visit will be discussed in further detail at your follow- up appointment, if applicable. Discharge Plan Admission Admit Date/Time: 11/03/22 16:23 Primary Reason for Your Visit: COPD exacerbation Attending Provider: Ezio Lomeli Primary Care Provider: Erika Faye Instructions Additional Instructions / Restrictions: You had an exacerbation of your COPD. This was due to a virus (Parainfluenza virus). Complete your steroids (prednisone). I strongly recommend not going to [place] this week and rescheduling this trip to a time where you are feeling better. I recommend following up with pulmonology in next 1-2 months for long-term management of your COPD. Discharge Orders/Prescriptions Prescriptions: New prednisone 20 mg tablet 40 mg PO DAILY 5 Days Qty: 10 0RF Continued ipratropium-albuterol 0.5 mg-2.5 mg/2.5 mL solution for nebulization 0.5-2.5 mg/2.5 mL solution for nebulization 2.5 ml continuous nebulization ONCE Qty: 1 0RF lisinopril 2.5 mg tablet 5 mg PO DAILY metformin 1,000 mg tablet 850 mg PO BID atorvastatin 20 mg tablet 40 mg PO DAILY aspirin [Adult Aspirin Regimen] 81 mg tablet,delayed release (DR/EC) 81 mg PO DAILY isosorbide dinitrate 5 mg tablet 30 mg PO DAILY ranolazine [Ranexa] 1,000 mg tablet extended release 12 hr 1,000 mg PO BID clopidogrel [Plavix] 75 mg tablet 75 mg PO DAILY terbinafine HCl 250 mg tablet 250 mg PO DAILY Label Comments: TAKE 1 TABLET BY MOUTH EVERY DAY FOR 90 DAYS Referrals / Follow Up: Erika Faye MD [Primary Care Provider] - Within 2 Weeks Disposition Disposition (needs filled in before D/C Order can be placed): Home, Self Care
[2022-11-05 12:16] LABS: Bedside Glucose 104 mg/dL (74-106)
--- NOTE | 2022-11-05 13:02 | DS.PCM_ITS ---
Providers Date of Admission: 11/03/22 Primary Care Physician: Dr. Erika Faye MD Reason For Visit: COPD EXACERBATION Diagnosis Discharge Diagnosis (1) COPD with acute exacerbation: Status: Chronic Code(s): J44.1 - Chronic obstructive pulmonary disease with (acute) exacerbation Plan: Patient was hypoxic down to 84% on room air. Patient with expiratory wheezes. Patient has known history of COPD. Feels that acute exacerbation of COPD. Patient was checked for COVID-19 at an outside urgent care that patient reports is being negative. A respiratory panel here has been ordered and is currently pending. Exacerbated by Parainfluenza 2 virus Plan: * Bronchodilators as well as IV methylprednisolone. * Patient was evaluated and for oxygen and will require 2 L continuous and 3 L of oxygen with activity. Plan Chronic conditions * Coronary artery disease: Status post CABG. Continue with aspirin, clopidogrel and atorvastatin. Continue with isosorbide and lisinopril and ranolazine * Hypertension: Continue with lisinopril * Diabetes mellitus type 2: Continue with metformin and add sliding scale. * Obstructive sleep apnea: Patient to bring in his home CPAP and we can use. Run and run oxygen through it as able. * Tobacco abuse: Patient smokes a pack a day. Discussed with patient how COPD further worsens and compromises his overall pulmonary status potentially making his lung structurally worse and making him overall more at risk for these exacerbations of his COPD. Advised cessation. We will provide a nicotine patch. VTE prophylaxis: Low molecular weight heparin. CODE STATUS: Addressed with the patient. Patient is full CODE STATUS. Disposition: home pending oxygen evaluation. I discouraged him going to [place] with or w/o oxygen given this hospitalization. Medications at Discharge Home Medications aspirin 81 mg tablet,delayed release (Adult Aspirin Regimen) 81 mg PO DAILY [facility] 04/05/19 atorvastatin 20 mg tablet 40 mg PO DAILY cholestrol 04/05/19 clopidogrel 75 mg tablet (Plavix) 75 mg PO DAILY Anti platelet 04/05/19 ipratropium 0.5 mg-albuterol 2.5 mg/2.5 mL solution for nebulization 2.5 ml continuous nebulization ONCE ##1 04/05/19 isosorbide dinitrate 5 mg tablet 30 mg PO DAILY Blood pressure 04/05/19 lisinopril 2.5 mg tablet 5 mg PO DAILY blood pressure 04/05/19 metformin 1,000 mg tablet 850 mg PO BID diabetes 04/05/19 ranolazine 1,000 mg tablet,extended release,12 hr (Ranexa) 1,000 mg PO BID blood thinner 04/05/19 terbinafine HCl 250 mg tablet 250 mg PO DAILY toenail fungus 11/04/22 prednisone 20 mg tablet 40 mg PO DAILY 5 days #10 tabs 11/05/22 Hospital Course Operations None Procedures None Summary of Care Provided Minutes Spent on Discharge: 32 Weight / BMI Weight Weight: 110.2 kg Body Mass Index (BMI) 32.0 ABG / Lab / Microbiology Data Result Diagrams: 11/03/22 14:10 11/03/22 14:10 Laboratory: Laboratory Results - last 24 hr 11/04/22 17:26: POC Glucose 131 H 11/04/22 20:55: POC Glucose 140 H 11/05/22 06:40: POC Glucose 129 H 11/05/22 11:56: POC Glucose 104 Microbiology: Microbiology 11/03/22 14:10 Mucosa - Nose Respiratory Panel (PCR) - Final Parainfluenza 2 D/C Instructions Discharge Diet: No restrictions Call your doctor if you observe: Shortness of breath Meaningful Use Info Meaningful Use Diagnoses (Choose all that apply): None applicable Discharge Plan Admission Admit Date/Time: 11/03/22 16:23 Primary Reason for Your Visit: COPD exacerbation Attending Provider: Ezio Lomeli Primary Care Provider: Erika Faye Instructions Additional Instructions / Restrictions: You had an exacerbation of your COPD. This was due to a virus (Parainfluenza virus). Complete your steroids (prednisone). I strongly recommend not going to [place] this week and rescheduling this trip to a time where you are feeling better. I recommend following up with pulmonology in next 1-2 months for long-term management of your COPD. Discharge Orders/Prescriptions Prescriptions: New prednisone 20 mg tablet 40 mg PO DAILY 5 Days Qty: 10 0RF Continued ipratropium-albuterol 0.5 mg-2.5 mg/2.5 mL solution for nebulization 0.5-2.5 mg/2.5 mL solution for nebulization 2.5 ml continuous nebulization ONCE Qty: 1 0RF lisinopril 2.5 mg tablet 5 mg PO DAILY metformin 1,000 mg tablet 850 mg PO BID atorvastatin 20 mg tablet 40 mg PO DAILY aspirin [Adult Aspirin Regimen] 81 mg tablet,delayed release (DR/EC) 81 mg PO DAILY isosorbide dinitrate 5 mg tablet 30 mg PO DAILY ranolazine [Ranexa] 1,000 mg tablet extended release 12 hr 1,000 mg PO BID clopidogrel [Plavix] 75 mg tablet 75 mg PO DAILY terbinafine HCl 250 mg tablet 250 mg PO DAILY Label Comments: TAKE 1 TABLET BY MOUTH EVERY DAY FOR 90 DAYS Referrals / Follow Up: Erika Faye MD [Primary Care Provider] - Within 2 Weeks Disposition Disposition (needs filled in before D/C Order can be placed): Home, Self Care Charges/Coding Visit Charges Inpatient E&M: 09364 Disch Hosp >30min
--- NOTE | 2022-11-05 13:32 | CASEMGMT ---
RN EMILY notified that patient will need home oxygen at discharge. Script received. FREDDY CM in to discuss discharge needs with patient. Patient prefers [employer] for DME. Patient denies further needs at discharge. FREDDY DIAZ sent referral to [employer] via [facility] and arranged for portability to be delivered to pateint's room.
--- NOTE | 2022-11-05 14:42 | PHA.DC.MR ---
Pharmacy Service has performed discharge medication reconciliation for this patient. The patient's discharge medication list was reviewed for discrepancies and discrepancies were resolved. Attempted to eligibility counselor x2 via telephone due to precautions. Home Medications aspirin 81 mg tablet,delayed release (Adult Aspirin Regimen) 81 mg PO DAILY heart health 04/05/19 atorvastatin 20 mg tablet 40 mg PO DAILY cholestrol 04/05/19 clopidogrel 75 mg tablet (Plavix) 75 mg PO DAILY Anti platelet 04/05/19 ipratropium 0.5 mg-albuterol 2.5 mg/2.5 mL solution for nebulization 2.5 ml continuous nebulization ONCE ##1 04/05/19 isosorbide dinitrate 5 mg tablet 30 mg PO DAILY Blood pressure 04/05/19 lisinopril 2.5 mg tablet 5 mg PO DAILY blood pressure 04/05/19 metformin 1,000 mg tablet 850 mg PO BID diabetes 04/05/19 ranolazine 1,000 mg tablet,extended release,12 hr (Ranexa) 1,000 mg PO BID blood thinner 04/05/19 terbinafine HCl 250 mg tablet 250 mg PO DAILY toenail fungus 11/04/22 prednisone 20 mg tablet 40 mg PO DAILY 5 days #10 tabs 11/05/22
--- NOTE | 2022-11-05 15:06 | NURSING ---
Patient's home medication that was verified by pharmacy was returned to the patient.
== END 2022-11-05 15:29 | disposition home or self-care (01) | DRG 192 ==
LOC: ED 16:34 → PCU 16:46
PROVIDERS: Nurse Practitioner; Emergency Provider Student in an Organized Health Care Education/Training Program; PCP Family Medicine
DX: J44.1 Chronic obstructive pulmonary disease with (acute) exacerbation (principal); I11.0 Hypertensive heart disease with heart failure; B34.8 Other viral infections of unspecified site; I50.9 Heart failure, unspecified; E11.9 Type 2 diabetes mellitus without complications; J44.0 Chronic obstructive pulmonary disease with (acute) lower respiratory infection; I25.10 Atherosclerotic heart disease of native coronary artery without angina pectoris; I10 Essential (primary) hypertension; G47.33 Obstructive sleep apnea (adult) (pediatric); F17.210 Nicotine dependence, cigarettes, uncomplicated; Z79.84 Long term (current) use of oral hypoglycemic drugs; Z79.82 Long term (current) use of aspirin; Z79.02 Long term (current) use of antithrombotics/antiplatelets; Z79.899 Other long term (current) drug therapy; Z95.1 Presence of aortocoronary bypass graft; R09.02 Hypoxemia
CPT/HCPCS: 71046; 80048; 82962; 83880; 84484; 85025; 87633; 93005; 94640; 94667; 94668; 99252; 99285; 99406; J7030; A4216; G0463

== ENCOUNTER → 2023-10-09 | Outpatient (CLI) | payer BC, SELFPAY | END | disposition home or self-care (01) | LOC: LABSPEC 15:26 | PROVIDERS: PCP Family Medicine; Visit Provider Otolaryngology | DX: J32.9 Chronic sinusitis, unspecified (principal) | CPT/HCPCS: 87070; 87077; 87186; 87205 ==

== ENCOUNTER → 2023-12-30 | Outpatient (CLI) | payer BC, SELFPAY ==
[2023-12-30 10:07] LABS: Absolute Lymphocyte Count 1.16 X10^3/uL (0.83-4.51); Absolute Neutrophil Count 3.9 X10^3/uL (2.0-7.7); Basophil# 0.03 X10^3/uL; Basophil% 0.5 % (0-1); Eosinophil# 0.26 X10^3/uL; Eosinophils% 4.3 % (0-5); Hematocrit 44.9 % (40-54); Hemoglobin 15.4 g/dL (13.0-16.5); Lymphocyte # 1.16 X10^3/ul (0.83-4.51); Lymphocyte % 19.1 % (19-41); Mean Corp Hgb Conc 34.3 g/dL (32-36); Mean Corpuscular Hgb 34.7 pg (27.0-32.0); Mean Corpuscular Volume 101.1 fL (80-94); Mean Platelet Vol. 10.7 fl (6.2-12.0); Monocyte# 0.72 X10^3/uL; Monocyte% 11.8 % (0-10); NRBC Flagged by Analyzer 0 % (0-5); Neutrophil % 64.1 % (47-70); Platelet Count 252 K/mm3 (150-450); RBC Distribution Width CV 13.9 % (11.6-14.6); RBC Distribution Width SD 52.2 fl (35.1-43.9); Red Blood Count 4.44 M/mm3 (4.6-6.2); White Blood Count 6.1 K/mm3 (4.4-11.0)
[2023-12-30 10:48] LABS: AST(SGOT) 16 U/L (15-37); Alanine Aminotransfer ALT/SGPT 27 U/L (16-61); Albumin, Serum 3.5 g/dL (3.2-5.0); Alkaline Phosphatase 89 U/L (45-117); Bilirubin, Direct 0.21 mg/dL (0.00-0.30); Cholesterol 145 mg/dL (200); High Density Lipoprotein 85 mg/dL; Protein, Total 7.5 g/dL (6.4-8.2); Thyroid Stim Hormone (TSH) 2.86 uIU/mL (0.358-3.74); Triglycerides 79 mg/dL; Very Low Density Lipoprotein 16 mg/dL (5-40)
[2023-12-31 08:11] LABS: LDL, Direct 120295 64 mg/dL (0-99)
== END | disposition home or self-care (01) ==
LOC: MTLAB 08:10
PROVIDERS: PCP Family Medicine; Referring Provider Family Medicine; Visit Provider Family Medicine
DX: E11.59 Type 2 diabetes mellitus with other circulatory complications (principal); I50.9 Heart failure, unspecified; I11.0 Hypertensive heart disease with heart failure; E78.2 Mixed hyperlipidemia; E03.9 Hypothyroidism, unspecified
CPT/HCPCS: 36415; 80061; 80076; 83721; 84443; 85025

== ENCOUNTER → 2024-07-02 | Outpatient (CLI) | payer BC, SELFPAY ==
[2024-07-02 10:30] LABS: Absolute Lymphocyte Count 1.54 X10^3/uL (0.83-4.51); Absolute Neutrophil Count 4.5 X10^3/uL (2.0-7.7); Basophil# 0.03 X10^3/uL; Basophil% 0.4 % (0-1); Eosinophil# 0.18 X10^3/uL; Eosinophils% 2.6 % (0-5); Hematocrit 44.9 % (40-54); Hemoglobin 14.3 g/dL (13.0-16.5); Lymphocyte # 1.54 X10^3/ul (0.83-4.51); Lymphocyte % 21.9 % (19-41); Mean Corp Hgb Conc 31.8 g/dL (32-36); Mean Corpuscular Hgb 33.2 pg (27.0-32.0); Mean Corpuscular Volume 104.2 fL (80-94); Mean Platelet Vol. 11.8 fl (6.2-12.0); Monocyte# 0.73 X10^3/uL; Monocyte% 10.4 % (0-10); NRBC Flagged by Analyzer 0 % (0-5); Neutrophil # 4.54 X10^3/uL (2.7-7.7); Neutrophil % 64.4 % (47-70); Platelet Count 226 K/mm3 (150-450); RBC Distribution Width SD 54.7 fl (35.1-43.9); Red Blood Count 4.31 M/mm3 (4.6-6.2)
[2024-07-02 11:19] LABS: AST(SGOT) 15 U/L (15-37); Alanine Aminotransfer ALT/SGPT 23 U/L (16-61); Albumin, Serum 3.4 g/dL (3.2-5.0); Alkaline Phosphatase 88 U/L (45-117); Anion Gap 5 (5-15); BUN 21 mg/dL (7-18); BUN/Creat Ratio 19.1 RATIO (10-20); Calcium,Total 9.4 mg/dL (8.5-10.1); Chloride 111 mmol/L (98-107); Cholesterol 124 mg/dL (200); EST Glomerular Filtration Rate 71 mL/min (>60); Est Glom Filt Rate - Afr Amer 86 mL/min (>60); Globulin 4.1 g/dL (2.2-4.2); Glucose 99 mg/dL (74-106); High Density Lipoprotein 67 mg/dL; Potassium 5.8 mmol/L (3.5-5.1); Protein, Total 7.5 g/dL (6.4-8.2); Sodium Level 141 mmol/L (136-145); Triglycerides 65 mg/dL; Very Low Density Lipoprotein 13 mg/dL (5-40)
[2024-07-02 13:08] LABS: Hemoglobin A1c 6.1 % (3.8-5.6)
[2024-07-03 04:07] LABS: LDL, Direct 120295 58 mg/dL (0-99)
== END | disposition home or self-care (01) ==
LOC: MTLAB 07:03
PROVIDERS: PCP Family Medicine; Referring Provider Family Medicine; Visit Provider Family Medicine
DX: I11.0 Hypertensive heart disease with heart failure (principal); I50.9 Heart failure, unspecified; J41.1 Mucopurulent chronic bronchitis; E11.59 Type 2 diabetes mellitus with other circulatory complications; Z13.31 Encounter for screening for depression; E03.9 Hypothyroidism, unspecified; I25.708 Atherosclerosis of coronary artery bypass graft(s), unspecified, with other forms of angina pectoris; E78.2 Mixed hyperlipidemia; G47.33 Obstructive sleep apnea (adult) (pediatric)
CPT/HCPCS: 36415; 80048; 80061; 80076; 83036; 83721; 84443; 85025

== ENCOUNTER → 2024-07-16 | Outpatient (CLI) | payer BC, SELFPAY ==
[2024-07-16 11:47] LABS: Anion Gap 7 (5-15); BUN 20 mg/dL (7-18); BUN/Creat Ratio 19.6 RATIO (10-20); Calcium,Total 9.5 mg/dL (8.5-10.1); Chloride 107 mmol/L (98-107); Creatinine, Serum 1.02 mg/dL (0.70-1.30); EST Glomerular Filtration Rate 77 mL/min (>60); Est Glom Filt Rate - Afr Amer 93 mL/min (>60); Glucose 113 mg/dL (74-106); Potassium 4.9 mmol/L (3.5-5.1); Sodium Level 139 mmol/L (136-145)
== END | disposition home or self-care (01) ==
LOC: MTLAB 07:03
PROVIDERS: PCP Family Medicine; Referring Provider Family Medicine; Visit Provider Family Medicine
DX: E87.5 Hyperkalemia (principal)
CPT/HCPCS: 36415; 80048

== ENCOUNTER → 2024-11-23 | Outpatient (CLI) | payer BC, SELFPAY ==
--- OUTSIDE RECORDS SUMMARY | 2024-11-23 06:12 | XMS RPT_ITS | CCD ---
Author Organization [facility] Care Team Providers Care Studio Hand Name Role Phone WINIFRED PIMENTEL Unavailable Unavailable LE ALCARAZ~[phone], LE Mitchellin g Unavailable LE ALCARAZ~[phone], LE Sandy Admittin g Unavailable YUNIER ALCARAZ, ERIKA Churchill Primary [facility] Unavailable Unavailable Primary Care Provider UnavailDINO Salvador Attending Unavailable DINO AGUIRRE Referring Unavailable Yunier ALCARAZ, Dr. James Primary Care Provider [phone] Dr. Erika Faye MD Attending Provider [phone] Dr. Erika Faye MD Referring Provider [phone] Dr. Hubert Chamorro MD Attending Provider Erika Faye Referring Unavailable Erika Faye Attending Unavailable Erika Faye Primary Care Unavailable Erika Faye Referring Unavailable Erika Faye Attending Unavailable Erika Faye Primary Care Unavailable Hubert Chamorro Referring Unavailable Hubert Chamorro Attending Unavailable Erika Faye Primary Care Unavailable Erika Faye Referring Unavailable Hubert Chamorro Attending Unavailable Erika Faye Primary Care Unavailable Erika Faye Referring Unavailable Erika Faye Attending Unavailable Erika Faye Primary Care Unavailable Medications Current Medications Medication Drug Class(es) Dates Sig (Normalized) Sig (Original) amLODIPine 5 mg oral tablet (2 sources) Dihydropyridine Calcium Channel Zuhair Start: 10-27-2024 take 1 tablet by mouth once daily Amlodipine 5 mg tablet Active 5 mg PO daily October 27, 2024 12:00am take 1 tablet by giovanni th once daily at bedtime amLODIPine (Norvasc) 5 mg tablet Take 1 tablet (5 mg) by mouth once daily at bedtime. Active aspirin 81 mg delayed release oral tablet (3 sources) Platelet Aggregation Inhibitor, Nonsteroidal Anti-inflammatory Drug Start: 04-05-2019 take 1 tablet by mouth once daily Aspirin (Adult Aspirin Regimen) 81 mg tablet,delayed release (DR/EC) Active 81 mg PO DAILY April 05, 2019 12:00am atorvastatin 80 mg oral tablet (4 sources) HMG-CoA Reductase Inhibitor Start: 10-27-2024 take 1 tablet by mouth once daily Atorvastatin 80 mg tablet Active 80 mg PO daily October 27, 2024 12:00am Start: 04-05-2019 End: 10-27-2024 take 2 tablets by mouth once daily Atorvastatin 20 mg tablet Discontinued 40 mg PO DAILY April 05, 2019 12:00am October 27, 2024 8:55am Start: 04-05-2019 take 40 mg by mouth once daily Atorvastatin Active 40 MG PO DAILY April 05, 2019 12:00am take 1 tablet by giovanni th once daily atorvastatin (Lipitor) 80 mg tablet Take 1 tablet (80 mg) by mouth once daily. Active clopidogrel 75 mg oral tablet (3 sources) P2Y12 Platelet Inhibitor Start: 04-05-2019 take 1 tablet by mouth once daily Clopidogrel (Plavix) 75 mg tablet Active 75 mg PO DAILY April 05, 2019 12:00am Fluticasone-Umeclidi n-Vilanter (1 source) Start: 10-27-2024 Fluticasone-Um ecl idin-Vilanter (Trelegy Ellipta) 200-62.5-25 mcg blister with device Active 1 NMA INHALATION daily October 27, 2024 12:00am hydrALAZINE hydrochloride 10 mg oral tablet (2 sources) Arteriolar Vasodilator Start: 10-27-2024 take 1 tablet by mouth three times daily Hydralazine 10 mg tablet Active 10 mg PO THREE TIMES A DAY October 27, 2024 12:00am Start: 07-27-2024 take 1 tablet by giovanni th three times daily hydrALAZINE (Apresoline) 10 mg tablet Take 1 tablet (10 mg) by mouth 3 times a day. 07/27/2024 Active 24 hr isosorbide mononitrate 60 mg extended release oral tablet (2 sources) Nitrate Vasodilator Start: 10-27-2024 take 1 tablet by mouth once daily, then take 1 tablet by mouth every twenty-four hours Isosorbide Mononitrate 60 mg tablet extended release 24 hr Active 60 mg PO daily October 27, 2024 12:00am take 1 tablet by giovanni th once daily in the morning isosorbide mononitrate ER (Imdur) 60 mg 24 hr tablet Take 1 tablet (60 mg) by mouth once daily in the morning. Active lisinopril 40 mg oral tablet (4 sources) Angiotensin Converting Enzyme Inhibitor Start: 10-27-2024 take 1 tablet by mouth once daily Lisinopril 40 mg tablet Active 40 mg PO daily October 27, 2024 12:00am Start: 04-05-2019 End: 10-27-2024 take 2 tablets by mouth once daily Lisinopril 2.5 mg tablet Discontinued 5 mg PO DAILY April 05, 2019 12:00am October 27, 2024 8:56am Start: 04-05-2019 take 5 mg by mouth once daily Lisinopril Active 5 MG PO DAILY April 05, 2019 12:00am take 1 tablet by giovanni th once daily lisinopril 40 mg tablet Take 1 tablet (40 mg) by mouth once daily. Active Magnesium (1 source) Start: 10-27-2024 take 1 tablet by mouth once daily Magnesium 250 mg tablet Active 250 mg PO daily October 27, 2024 12:00am metFORMIN hydrochloride 1000 mg oral tablet (3 sources) Biguanide Start: 04-05-2019 Metformin 1,00 0 mg tablet Active 850 mg PO TWICE A DAY April 05, 2019 12:00am Start: 04-05-2019 take 850 mg by mouth twice abner ly Metformin Active 850 MG PO TWICE A DAY April 05, 2019 12:00am take 1 tablet by giovanni th every twelve hours metFORMIN (Glucophage) 850 mg tablet Take 1 tablet (850 mg) by mouth every 12 hours. Active 24 hr metoprolol succinate 50 mg extended release oral capsule (2 sources) beta-Adrenergic Zuhair Start: 10-27-2024 take 1 capsule by mouth once daily Metoprolol Succinate 50 mg capsule,ikm,ER 24hr Active 50 mg PO daily October 27, 2024 12:00am take 1 tablet by mouth once lawrence y metoprolol succinate XL (Toprol-XL) 50 mg 24 hr tablet Take 1 tablet (50 mg) by mouth once daily. Active nitroglycerin 0.4 mg sublingual tablet (2 sources) Nitrate Vasodilator Start: 10-27-2024 Nitroglyce rin 0.4 mg tablet, sublingual Active 0.4 mg SL every 5 to 15 minutes as needed October 27, 2024 12:00am do not exceed 3 doses per episode nitroglycerin (N itrostat) 0.[address] 1 tablet (0.4 mg) under the tongue every 5 minutes if needed for chest pain. Active 12 hr ranolazine 1000 mg extended release oral tablet (3 sources) Anti-anginal Start: 04-05-2019 take 1 tablet by mouth twice daily Ranolazine (Ranexa) 1,000 mg tablet extended release 12 hr Active 1000 mg PO TWICE A DAY April 05, 2019 12:00am Trelegy Ellipta 200-62.5-25 mcg blister with device (1 source) Start: 07-24-2024 take 1 puff(s) by inhalation once daily Trelegy Ellipta 200-62.5-25 mcg blister with device Inhale 1 puff once daily. 07/24/2024 Active Completed/Discontinued Medications Medication Drug Class(es) Dates Sig (Normalized) Sig (Original) isosorbide dinitrate 5 mg oral tablet (2 sources) Nitrate Vasodilator Start: 04-05-2019 End: 10-27-2024 Isosorbide Dinitrate 5 mg tablet Discontinued 30 mg PO DAILY April 05, 2019 12:00am October 27, 2024 8:56am Start: 04-05-2019 take 30 mg by mouth once daily Isosorbide Dinitrate Active 30 MG PO DAILY April 05, 2019 12:00am predniSONE 20 mg oral tablet (2 sources) Start: 11-05-2022 End: 10-27-2024 take 2 tablets by mouth once daily Prednisone 20 mg tablet Discontinued 40 mg PO DAILY 03 20November 05, 2022 12:00am October 27, 2024 8:57am Start: 11-05-2022 take 40 mg by mouth once daily Prednisone Active 40 MG PO DAILY 03 20November 05, 2022 12:00am terbinafine 250 mg oral tablet (2 sources) Allylamine Antifungal Start: 11-04-2022 End: 10-27-2024 take 1 tablet by mouth once daily Terbinafine Hcl 250 mg tablet Discontinued 250 mg PO DAILY November 04, 2022 12:00am October 27, 2024 8:57am Problems Active Problems Problem Classification Problem Date Documented Date Episodic/Chronic Acute bronchitis (2 sources) Acute bronchitis; Translations: [Acute bronchitis, unspecified] 04-05-2019 Episodic Cardiac dysrhythmias (6 sources) Ventricular premature depolarization; Translations: [Ventricular premature complex] Onset: 07-22-2024 08-12-2024 Chronic Cardiac dysrhythmias (6 sources) Palpitations; Translations: [Palpitations] Onset: 07-22-2024 08-12-2024 Episodic Chronic obstructive pulmonary disease and bronchiectasis (3 sources) Acute exacerbation of chronic obstructive airways disease; Translations: [Chronic obstructive pulmonary disease with (acute) exacerbation] 11-13-2022 Chronic Complication of device; implant or graft (1 source) 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 His tory of percutaneous intervention to the right coronary artery and LMCA. Unsuccessful attempted PCI of right PDA. Coronary atherosclerosis and other heart disease (3 sources) Stented coronary artery; Translations: [Presence of coronary angioplasty implant and graft] Onset: 11-11-2024 10-27-2024 Episodic Comment on above: AMINAH to the RCA and t o the LMCA. Diabetes mellitus with complications (3 sources) Type 2 diabetes mellitus; Translations: [Type 2 diabetes mellitus with other circulatory complications] Onset: 01-13-2024 08-09-2024 Chronic Essential hypertension (3 sources) Essential hypertension; Translations: [Essential (primary) hypertension] Onset: 07-22-2024 08-09-2024 Chronic Other and ill-defined heart disease (1 source) Heart disease; Translations: [Heart disease, unspecified] 10-26-2024 Chronic Other and ill-defined heart disease (1 source) Heart disease, unspecified; Translations: [Heart disease, unspecified] Onset: 10-27-2024 Chronic Other lower respiratory disease (2 sources) Cough; Translations: [Cough] 04-05-2019 Episodic Other nutritional; endocrine; and metabolic disorders (1 source) Obese class I; Translations: [Class 1 obesity] 10-27-2024 Chronic Other upper respiratory disease (2 sources) Bleeding from nose; Translations: [Epistaxis] 08-12-2019 Episodic Residual codes; unclassified (1 source) Obstructive sleep apnea syndrome; Translations: [Obstructive sleep apnea (adult) (pediatric)] 10-27-2024 Chronic Past or Other Problems Problem Classification Problem Date Documented Da te Episodic/Chronic Fluid and electrolyte disorders (2 sources) Hyperkalemia; Translations: [Hyperkalemia] Onset: 07-30-2024 08-09-2024 Episodic Results Test Name Value Interpretation Reference Range Facility Cardiology Visit Reporton Cardiology Visit Report [facility] [place] [id number] [facility] [place] [address] OFFICE VISIT Date of Service: 10/27/24 MR#: [id number] Acct: [id number] Name: DENISE HARDIN Rep #: [id number] : 1955 Provider: Dr. Hubert Chamorro MD Age/Sex: 69/M Location: [facility] [place] Status: Signed HPI HPI History of Present Illness Details: This gentleman has a past medical history significant for coronary artery disease. He is here to establish care with us. Patient has had a triple-vessel CABG in the early 1999's. In 2004, he was noted to have totally occluded SVG to the OM and to the right PDA. Subsequently he has had percutaneous intervention done, first to the [place] RCA and then to the left main coronary artery. His last coronary angiography was in 2018. MATTHEWS to the LAD and stents to the left main coronary artery and RCA were noted to be patent. Echocardiogram done recently showed LVEF 41%. Mildly dilated left ventricular cavity was noted. No major valvular abnormalities noted. Patient's last stress test was in 2018. He was noted to have mixed fixed and reversible defect in the inferior wall. Subsequent coronary angiography is reported as showing tight lesion in the right PDA. Attempted percutaneous intervention was unsuccessful. Patient recently has had a Holter monitor done. It showed 17% burden of PVCs. He has since been started on metoprolol extended release 50 mg daily. Denies any chest pains or shortness of breath either at rest or with exertion. Denies any orthopnea. No PND. No ankle edema. Denies any lightheadedness or dizziness. No syncope or presyncope. According to the patient, his palpitations have improved since he started on the metoprolol. Intake Vital Signs 11/04/22 11:44 10/27/24 08:32 Height 6 ft 1 in 6 ft 1 in Weight: 254 lb BMI 33.5 BP 136/65 H Blood Pressure Location Lt brachial Position Sitting Respiration 18 Pulse 81 Pulse Source NIBP Intake Visit Reasons: ESTABLISH (SELF) [employer] Required: No Accompanied by: Self Allergies No Known Allergies Allergy (Verified 10/27/24 08:52) Medications ???Medication ???Instructions ???Recorded ???Confirmed ???Type aspirin 81 mg tablet,delayed 81 mg PO DAILY heart health 10/27/24 History release (Adult Aspirin Regimen) clopidogrel 75 mg tablet (Plavix) 75 mg PO DAILY Anti platelet 03/1710/27/24 History metformin 1,000 mg tablet 850 mg PO BID diabetes 04/05/19 History ranolazine 1,000 mg 1,000 mg PO BID blood thinner 03/1710/27/24 History tablet,extended release,12 hr (Ranexa) amlodipine 5 mg tablet 5 mg PO QDAY 10/27/24 10/27/24 His tory atorvastatin 80 mg tablet 80 mg PO QDAY 10/27/24 10/27/24 Hi story fluticasone fur. 200 mcg-umeclid 1 inh inhalation QDAY 10/27/24 History 62.5 mcg-vilant 25 mcg inhalat.powder (Trelegy Ellipta) hydralazine 10 mg tablet 10 mg PO TID 10/27/24 10/27/24 His tory isosorbide mononitrate 60 mg 60 mg PO QDAY 10/27/24 10/27/24 Hi story tablet,extended release 24 hr lisinopril 40 mg tablet 40 mg PO QDAY 10/27/24 10/27/24 Hi story magnesium 250 mg tablet 250 mg PO QDAY 10/27/24 10/27/24 H istory metoprolol succinate 50 mg capsule 50 mg PO QDAY 10/27/24 10/27/24 History sprinkle, ext. release 24 hr nitroglycerin 0.4 mg sublingual 0.4 mg sublingual Q5-15M PRN 10/2710/27/24 History tablet Ejection fraction %: 41 Have you fallen in the past year?: No PFSH Medical History (Updated 10/27/24 @ 09:[address] Hubert Chamorro MD) RUTH (obstructive sleep apnea) Diabetes mellitus, type 2 COPD (chronic obstructive pulmonary disease) H/O hemorrhoids Heart disease Hypertension Surgical History (Updated 10/27/24 @ 09:[address] Hubert Chamorro MD) H/O heart artery stent Bypass graft stenosis Social History Smoking Status: Current every day smoker tobacco type: cigarettes ROS Const Const: Positive for fatigue and weakness; Negative for headache(s) or weight gain ENT ENT: Negative for headache(s), dizziness, Nosebleed/epistaxis or balance problems Cardio Chest Pain: No Palpitations: Yes Edema: None Muscle aches with walking: None Resp Respiratory: Positive for SOB with activity and SOB at rest; Negative for SOB orthopnea SOB lying down GI GI: Negative nausea, vomiting or heartburn Musc Musc: Negative for muscle aches/ myalgia, muscle weakness, joint pain or balance problems Neuro Neuro: Positive for weakness; Negative for dizziness, lightheadedness, near syncope, syncope or headache(s) Endo Endo: Positive for fatigue Cardiology Exam Const Appearance: comfortable and no acute distress Nutritional Appearance: well nourished (more content not included)... Normal [facility] Basic Metabolic Profile (BMP )on 07-16-2024 BUN/CRE 19.6 RATIO Normal 10-[address] [facility] Comment on above: Performed By: #### L 500.2500 #### [facility] [address] [place], [address] CA,Total 9.5 mg/dL Normal 8.5-10.[address] [facility] Comment on above: Performed By: #### L 500.2500 #### [facility] [address] [place], [address] Chloride [Moles/Vol] 107 mmol/L Normal 98-107 [facility] Comment on above: Performed By: #### L 500.2500 #### [facility] [address] [place], [address] CO2 [Moles/Vol] 25.0 mmol/L Normal 21.0-32.[address] [facility] Comment on above: Performed By: #### L 500.2500 #### [facility] [address] [place], [address] Creatinine [Mass/Vol] 1.02 mg/dL Normal 0.70-1.30 [facility] Comment on above: Result Comment: The validity of the calculated GFR GFRAA in patients over 70 years has not been determined. Clinical correlation is essential. Performed By: #### L 500.2500 #### [facility] [address] [place], [address] EST GFR - AA 93 mL/min Normal >[address] [facility] Comment on above: Result Comment: Afri can Turkish GFR Calc Performed By: #### L 500.2500 #### [facility] [address] [place], [address] GAP 7 Normal 5-[address] [facility] Comment on above: Performed By: #### L 500.2500 #### [facility] [address] [place], [address] GFR/1.73 sq M.predicted among non-blacks MDRD (S/P/Bld) [Vol rate/Area] 77 mL/min/{1.73_m2} Normal >[address] [facility] Comment on above: Result Comment: Non- GFR Calc Performed By: #### L 500.2500 #### [facility] [address] [place], [address] Glucose [Mass/Vol] 113 mg/dL High 74-106 [facility] Comment on above: Result Comment: Fast ing Glucose result from 100 to 125 mg/dL suggests IMPAIRED HOMEOSTASIS per A.D.A. criteria. Performed By: #### L 500.2500 #### [facility] [address] [place], [address] Potassium [Moles/Vol] 4.9 mmol/L Normal 3.5-5.1 [facility] Comment on above: Performed By: #### L 500.2500 #### [facility] [address] [place], [address] Sodium [Moles/Vol] 139 mmol/L Normal 136-145 [facility] Comment on above: Performed By: #### L 500.2500 #### [facility] [address] [place], [address] Urea nitrogen [Mass/Vol] 20 mg/dL High 7-[address] [facility] Comment on above: Performed By: #### L 500.2500 #### [facility] [address] [place], [address] Blood urea nitrogen (BUN)/cr eatinine ratioOrdered By: Erika Faye on 07-16-2024 Urea nitrogen/Creatinine [Mass ratio] 19.6 mg/mg 10-[address] [facility] Carbon dioxide measurementOr dered By: Erika Faye on 07-16-2024 CO2 [Moles/Vol] 25.0 mmol/L 21.0-32.[address] [facility] Chloride measurementOrdered By: Erika Faye on 07-16-2024 Chloride [Moles/Vol] 107 mmol/L 98-107 [facility] Glomerular filtration rate ( GFR) estimationOrdered By: Erika Faye on 07-16-2024 GFR/1.73 sq M.predicted among non-blacks MDRD (S/P/Bld) [Vol rate/Area] 77 mL/min/{1.73_m2} >[address] [facility] Comment on above: Non- GFR Calc Glucose measurementOrdered B y: Erika Faye on 07-16-2024 Glucose [Mass/Vol] 113 mg/dL High 74-106 [facility] Comment on above: Fasting Glucose resu lt from 100 to 125 mg/dL suggests IMPAIRED HOMEOSTASIS per A.D.A. criteria. Potassium measurementOrdered By: Erika Faye on 07-16-2024 Potassium [Moles/Vol] 4.9 mmol/L 3.5-5.1 [facility] Serum anion gap measurementO rdered By: Erika Faye on 07-16-2024 Anion gap [Moles/Vol] 7 mmol/L 5-15 [facility] Serum or plasma calcium daysi urement (mass/volume)Ordered By: Erika Faye on 07-16-2024 Calcium [Mass/Vol] 9.5 mg/dL 8.5-10.1 [facility] Serum or plasma creatinine m easurement (mass/volume)Ordered By: Erika Faye on 07-16-2024 Creatinine [Mass/Vol] 1.02 mg/dL 0.70-1.30 [facility] Comment on above: The validity of the calculated GFR & GFRAA in patients over 70 years has not been determined. Clinical correlation is essential. Serum or plasma urea nitroge n measurement (mass/volume)Ordered By: Erika Faye on 07-16-2024 Urea nitrogen [Mass/Vol] 20 mg/dL High - [facility] Sodium levelOrdered By: Chacha Faye on 07-16-2024 Sodium [Moles/Vol] 139 mmol/L 136-145 [facility] LDL, Directon 07-03-2024 Cholesterol in LDL [Mass/Vol] 58 mg/dL Normal 0-[address] [facility] Comment on above: Result Comment: Perf ormed at: - [facility] [address] [id number] [place] Supervisor: Andrew Escobar PhD, Phone: [phone] Performed By: #### L 100.0100, L500.4100, L500.3400, L3300.4490, L501.9520, L500.2500, L501.9985 #### [facility] [address] [place], [address] COMMENT TNP Normal . [facility] Comment on above: Performed By: #### L 100.0100, L500.4100, L500.3400, L3300.4490, L501.9520, L500.2500, L501.9985 #### [facility] [address] [place], [address] Absolute lymphocyte countOrd ered By: Erika Faye on 07-02-2024 Lymphocytes Auto (Unsp spec) [#/Vol] 1.54 10*3/uL 0.83-4.[address] [facility] Absolute neutrophil countOrd ered By: Erika Faye on 07-02-2024 Neutrophils (Bld) [#/Vol] 4.5 10*3/uL 2.0-7.[address] [facility] Automated lymphocyte count a s percentage of total leukocytesOrdered By: Erika Faye on 07-02-2024 Lymphocytes/100 WBC Auto (Unsp spec) 21.9 % 19-[address] [facility] Basic Metabolic Profile (BMP )on 07-02-2024 BUN/CRE 19.1 RATIO Normal 10-[address] [facility] Comment on above: Performed By: #### L 100.0100, L500.4100, L500.3400, L3300.4490, L501.9520, L500.2500, L501.9985 #### [facility] [address] [place], [address] CA,Total 9.4 mg/dL Normal 8.5-10.[address] [facility] Comment on above: Performed By: #### L 100.0100, L500.4100, L500.3400, L3300.4490, L501.9520, L500.2500, L501.9985 #### [facility] [address] [place], [address] Chloride [Moles/Vol] 111 mmol/L High 98-107 [facility] Comment on above: Performed By: #### L 100.0100, L500.4100, L500.3400, L3300.4490, L501.9520, L500.2500, L501.9985 #### [facility] [address] [place], [place], [address] CO2 [Moles/Vol] 25.0 mmol/L Normal 21.0-32.[address] [facility] Comment on above: Performed By: #### L 100.0100, L500.4100, L500.3400, L3300.4490, L501.9520, L500.2500, L501.9985 #### [facility] [address] [place], [address] Creatinine [Mass/Vol] 1.10 mg/dL Normal 0.70-1.30 [facility] Comment on above: Result Comment: The validity of the calculated GFR GFRAA in patients over 70 years has not been determined. Clinical correlation is essential. Performed By: #### L 100.0100, L500.4100, L500.3400, L3300.4490, L501.9520, L500.2500, L501.9985 #### [facility] [address] [place], [address] (226 EST GFR - AA 86 mL/min Normal >[address] [facility] Comment on above: Result Comment: Afri can Turkish GFR Calc Performed By: #### L 100.0100, L500.4100, L500.3400, L3300.4490, L501.9520, L500.2500, L501.9985 #### [facility] [address] [place], [address] GAP 5 Normal 5-[address] [facility] Comment on above: Performed By: #### L 100.0100, L500.4100, L500.3400, L3300.4490, L501.9520, L500.2500, L501.9985 #### [facility] [address] [place], [address] ([address] GFR/1.73 sq M.predicted among non-blacks MDRD (S/P/Bld) [Vol rate/Area] 71 mL/min/{1.73_m2} Normal >[address] [facility] Comment on above: Result Comment: Non- GFR Calc Performed By: #### L 100.0100, L500.4100, L500.3400, L3300.4490, L501.9520, L500.2500, L501.9985 #### [facility] [address] [place], [address] Glucose [Mass/Vol] 99 mg/dL Normal 74-106 [facility] Comment on above: Performed By: #### L 100.0100, L500.4100, L500.3400, L3300.4490, L501.9520, L500.2500, L501.9985 #### [facility] [address] [place], [address] Potassium [Moles/Vol] 5.8 mmol/L High 3.5-5.1 [facility] Comment on above: Performed By: #### L 100.0100, L500.4100, L500.3400, L3300.4490, L501.9520, L500.2500, L501.9985 #### [facility] [address] [place], [address] Sodium [Moles/Vol] 141 mmol/L Normal 136-145 [facility] Comment on above: Performed By: #### L 100.0100, L500.4100, L500.3400, L3300.4490, L501.9520, L500.2500, L501.9985 #### [facility] [address] [place], [address] Urea nitrogen [Mass/Vol] 21 mg/dL High 7-[address] [facility] Comment on above: Performed By: #### L 100.0100, L500.4100, L500.3400, L3300.4490, L501.9520, L500.2500, L501.9985 #### [facility] [address] [place], [address] Basophil percentageOrdered B y: Erika Faye on 07-02-2024 Basophils/100 WBC (Bld) 0.4 % 0-1 [facility] Bilirubin directOrdered By: Erika Faye on 07-02-2024 Bilirubin.direct [Mass/Vol] 0.20 mg/dL 0.00-0.[address] [facility] Bilirubin, totalOrdered By: Erika Faye on 07-02-2024 Bilirubin [Mass/Vol] 0.70 mg/dL 0.20-1.00 [facility] Comment on above: For patients on eltr ombopag therapy, use of Dimension [place] TBIL is not recommended. Blood urea nitrogen (BUN)/cr eatinine ratioOrdered By: Erika Faye on 07-02-2024 Urea nitrogen/Creatinine [Mass ratio] 19.1 mg/mg 10-[address] [facility] CBC W/Diff, Automatedon 06-16 Absolute Lymph 1.54 X10 3/uL Normal 0.83-4.[address] [facility] Comment on above: Performed By: #### L 100.0100, L500.4100, L500.3400, L3300.4490, L501.9520, L500.2500, L501.9985 #### [facility] [address] [place], [address] Absolute Neut 4.5 X10 3/uL Normal 2.0-7.[address] [facility] Comment on above: Performed By: #### L 100.0100, L500.4100, L500.3400, L3300.4490, L501.9520, L500.2500, L501.9985 #### [facility] [address] [place], [address] Basophils/100 WBC (Bld) 0.4 % Normal 0-1 [facility] Comment on above: Performed By: #### L 100.0100, L500.4100, L500.3400, L3300.4490, L501.9520, L500.2500, L501.9985 #### [facility] [address] [place], [address] Eosinophils/100 WBC (Bld) 2.6 % Normal 0-[address] [facility] Comment on above: Performed By: #### L 100.0100, L500.4100, L500.3400, L3300.4490, L501.9520, L500.2500, L501.9985 #### [facility] [address] [place], [address] Erythrocyte distribution width (RBC) [Ratio] 14.0 % Normal 11.6-14.[address] [facility] Comment on above: Performed By: #### L 100.0100, L500.4100, L500.3400, L3300.4490, L501.9520, L500.2500, L501.9985 #### [facility] [address] [place], [address] Hematocrit (Bld) [Volume fraction] 44.9 % Normal 40-[address] [facility] Comment on above: Performed By: #### L 100.0100, L500.4100, L500.3400, L3300.4490, L501.9520, L500.2500, L501.9985 #### [facility] [address] [place], [address] Hemoglobin (Bld) [Mass/Vol] 14.3 g/dL Normal 13.0-16.[address] [facility] Comment on above: Performed By: #### L 100.0100, L500.4100, L500.3400, L3300.4490, L501.9520, L500.2500, L501.9985 #### [facility] [address] [place], [address] IG% 0.300 Normal 0.0-0.[address] [facility] Comment on above: Result Comment: IG% - Immature Granulocytes (promyelocytes, myelocytes and metamyelocytes) > 1% indicates that a LEFT SHIFT is Present. Performed By: #### L 100.0100, L500.4100, L500.3400, L3300.4490, L501.9520, L500.2500, L501.9985 #### [facility] [address] [place], [address] Lymphocytes/100 WBC (Bld) 21.9 % Normal 19-[address] [facility] Comment on above: Performed By: #### L 100.0100, L500.4100, L500.3400, L3300.4490, L501.9520, L500.2500, L501.9985 #### [facility] [address] [place], [address] MCH (RBC) [Entitic mass] 33.2 pg High 27.0-32.[address] [facility] Comment on above: Performed By: #### L 100.0100, L500.4100, L500.3400, L3300.4490, L501.9520, L500.2500, L501.9985 #### [facility] [address] [place], [address] MCHC (RBC) [Mass/Vol] 31.8 g/dL Low 32-36 [facility] Comment on above: Performed By: #### L 100.0100, L500.4100, L500.3400, L3300.4490, L501.9520, L500.2500, L501.9985 #### [facility] [address] [place], [address] MCV (RBC) [Entitic vol] 104.2 fL High 80-94 [facility] Comment on above: Performed By: #### L 100.0100, L500.4100, L500.3400, L3300.4490, L501.9520, L500.2500, L501.9985 #### [facility] [address] [place], [address] Monocytes/100 WBC (Bld) 10.4 % High 0-10 [facility] Comment on above: Performed By: #### L 100.0100, L500.4100, L500.3400, L3300.4490, L501.9520, L500.2500, L501.9985 #### [facility] [address] [place], [address] Neutrophils/100 WBC (Bld) 64.4 % Normal 47-[address] [facility] Comment on above: Performed By: #### L 100.0100, L500.4100, L500.3400, L3300.4490, L501.9520, L500.2500, L501.9985 #### [facility] [address] [place], [address] Nucleated RBC (Bld) [#/Vol] 0 10*3/uL Normal 0-[address] [facility] Comment on above: Performed By: #### L 100.0100, L500.4100, L500.3400, L3300.4490, L501.9520, L500.2500, L501.9985 #### [facility] [address] [place], [address] Platelet mean volume (Bld) [Entitic vol] 11.8 fL Normal 6.2-12.[address] [facility] Comment on above: Performed By: #### L 100.0100, L500.4100, L500.3400, L3300.4490, L501.9520, L500.2500, L501.9985 #### [facility] [address] [place], [address] Platelets (Bld) [#/Vol] 226 10*3/uL Normal 150-[address] [facility] Comment on above: Performed By: #### L 100.0100, L500.4100, L500.3400, L3300.4490, L501.9520, L500.2500, L501.9985 #### [facility] [address] [place], [address] RBC (Bld) [#/Vol] 4.31 10*6/uL Low 4.6-6.2 [facility] Comment on above: Performed By: #### L 100.0100, L500.4100, L500.3400, L3300.4490, L501.9520, L500.2500, L501.9985 #### [facility] [address] [place], [address] RDW SD 54.7 fl High 35.1-43.[address] [facility] Comment on above: Performed By: #### L 100.0100, L500.4100, L500.3400, L3300.4490, L501.9520, L500.2500, L501.9985 #### [facility] [address] [place], [address] WBC (Bld) [#/Vol] 7.0 10*3/uL Normal 4.4-11.0 [facility] Comment on above: Performed By: #### L 100.0100, L500.4100, L500.3400, L3300.4490, L501.9520, L500.2500, L501.9985 #### [facility] [address] [place], [place], [id number] Carbon dioxide measurementOr dered By: Erika Faye on 07-02-2024 CO2 [Moles/Vol] 25.0 mmol/L 21.0-32.[address] [facility] Chloride measurementOrdered By: Erika Faye on 07-02-2024 Chloride [Moles/Vol] 111 mmol/L High 98-107 [facility] Cholesterol in LDL Direct as say [Mass/Vol]Ordered By: Erika Faye on 07-02-2024 Cholesterol in LDL [Mass/Vol] 58 mg/dL 0-[address] [facility] Comment on above: Performed at: [address] [id number] Director: Andrew Escobar PhD, Phone: [phone] Eosinophil percentageOrdered By: Erika Faye on 07-02-2024 Eosinophils/100 WBC (Bld) 2.6 % 0-[address] [facility] Erythrocyte distribution wid th ratioOrdered By: Erika Faye on 07-02-2024 Erythrocyte distribution width (RBC) [Ratio] 14.0 % 11.6-14.[address] [facility] Erythrocyte distribution wid th standard deviationOrdered By: Erika Faye on 07-02-2024 Erythrocyte distribution width (RBC) [Ratio] 54.7 fl High 35.1-43.[address] [facility] Glomerular filtration rate ( GFR) estimationOrdered By: Erika Faye on 07-02-2024 GFR/1.73 sq M.predicted among non-blacks MDRD (S/P/Bld) [Vol rate/Area] 71 mL/min/{1.73_m2} >[address] [facility] Comment on above: Non- GFR Calc Glucose measurementOrdered B y: Erika Faye on 07-02-2024 Glucose [Mass/Vol] 99 mg/dL 74-106 [facility] Hematocrit Auto (Bld) [Volum e fraction]Ordered By: Erika Faye on 07-02-2024 Hematocrit (Bld) [Volume fraction] 44.9 % 40-[address] [facility] Hemoglobin A1con 07-02-2024 HbA1c (Bld) [Mass fraction] 6.1 % High 3.8-5.[address] [facility] Comment on above: Result Comment: Norm al < 5.7 % Prediabetic 5.7 - 6.4 % Diabetic >or= 6.5 % Please note range changes. Performed By: #### L 100.0100, L500.4100, L500.3400, L3300.4490, L501.9520, L500.2500, L501.9985 #### [facility] [address] [place], [address] Hemoglobin A1c percentageOrd ered By: Erika Faye on 07-02-2024 HbA1c (Bld) [Mass fraction] 6.1 % High 3.8-5.[address] [facility] Comment on above: Normal < 5.7 % Predi abetic 5.7 - 6.4 % Diabetic >or= 6.5 % Please note range changes. Hemoglobin measurementOrdere d By: Erika Faye on 07-02-2024 Hemoglobin (Bld) [Mass/Vol] 14.3 g/dL 13.0-16.[address] [facility] High density lipoprotein (HD L) measurementOrdered By: Erika Faye on 07-02-2024 Cholesterol in HDL [Mass/Vol] 67 mg/dL >[address] [facility] Comment on above: The drugs N-Acetylcy steine and Metamizole may falsely depress this assay. Reference Range HDL <40 mg/dL Low HDL Cholesterol HDL >or= 60 mg/dL High HDL Cholesterol Immature granulocytes/100 WB C Auto (Bld)Ordered By: Erika Faye on 07-02-2024 Immature granulocytes/100 WBC (Bld) 0.300 % 0.0-0.[address] [facility] Comment on above: IG% - Immature Granu locytes (promyelocytes, myelocytes and metamyelocytes) > 1% indicates that a LEFT SHIFT is Present. Laboratory - Chemistry and C hemistry - challengeOrdered By: Erika Faye on 07-02-2024 AST [Catalytic activity/Vol] 15 U/L 15-[address] [facility] - Miscellaneous t estsOrdered By: Erika Faye on 07-02-2024 Service comment (Unsp spec) [Interp] TNP [facility] Comment on above: Test not performed Lipid Profileon 07-02-2024 Cholesterol [Mass/Vol] 124 mg/dL Normal 200 [facility] Comment on above: Result Comment: <200 mg/dL Desirable 200-240 mg/dL Borderline >240 mg/dL High Risk Performed By: #### L 100.0100, L500.4100, L500.3400, L3300.4490, L501.9520, L500.2500, L501.9985 #### [facility] [address] [place], [address] Cholesterol in HDL [Mass/Vol] 67 mg/dL Normal [facility] Comment on above: Result Comment: The drugs N-Acetylcysteine and Metamizole may falsely depress this assay. Reference Range HDL <40 mg/dL Low HDL Cholesterol HDL >or= 60 mg/dL High HDL Cholesterol Performed By: #### L 100.0100, L500.4100, L500.3400, L3300.4490, L501.9520, L500.2500, L501.9985 #### [facility] [address] [place], [address] Cholesterol in LDL [Mass/Vol] 44 mg/dL Normal 0-[address] [facility] Comment on above: Performed By: #### L 100.0100, L500.4100, L500.3400, L3300.4490, L501.9520, L500.2500, L501.9985 #### [facility] [address] [place], [address] Cholesterol in VLDL [Mass/Vol] 13 mg/dL Normal 5-[address] [facility] Comment on above: Performed By: #### L 100.0100, L500.4100, L500.3400, L3300.4490, L501.9520, L500.2500, L501.9985 #### [facility] [address] [place], [address] Triglyceride [Mass/Vol] 65 mg/dL Normal [facility] Comment on above: Result Comment: The drugs N-Acetylcysteine and Metamizole may falsely depress this assay. Serum Triglycerides Reference Interval Normal <150 mg/dL Borderline high 150 - 199 mg/dL High 200 - 499 mg/dL Very High > or = 500 mg/dL Performed By: #### L 100.0100, L500.4100, L500.3400, L3300.4490, L501.9520, L500.2500, L501.9985 #### [facility] [address] [place], [address] Liver Profileon 07-02-2024 Albumin [Mass/Vol] 3.4 g/dL Normal 3.2-5.0 [facility] Comment on above: Performed By: #### L 100.0100, L500.4100, L500.3400, L3300.4490, L501.9520, L500.2500, L501.9985 #### [facility] [address] [place], [address] ALK P 88 U/L Normal 45-[address] [facility] Comment on above: Performed By: #### L 100.0100, L500.4100, L500.3400, L3300.4490, L501.9520, L500.2500, L501.9985 #### [facility] [address] [place], [address] ALT [Catalytic activity/Vol] 23 U/L Normal 16-[address] [facility] Comment on above: Performed By: #### L 100.0100, L500.4100, L500.3400, L3300.4490, L501.9520, L500.2500, L501.9985 #### [facility] [address] [place], [address] AST [Catalytic activity/Vol] 15 U/L Normal 15-[address] [facility] Comment on above: Performed By: #### L 100.0100, L500.4100, L500.3400, L3300.4490, L501.9520, L500.2500, L501.9985 #### [facility] [address] [place], [address] Bilirubin [Mass/Vol] 0.70 mg/dL Normal 0.20-1.00 [facility] Comment on above: Result Comment: For patients on eltrombopag therapy, use of Dimension [place] TBIL is not recommended. Performed By: #### L 100.0100, L500.4100, L500.3400, L3300.4490, L501.9520, L500.2500, L501.9985 #### [facility] [address] [place], [place], [id number] [phone] Bilirubin.direct [Mass/Vol] 0.20 mg/dL Normal 0.00-0.[address] [facility] Comment on above: Performed By: #### L 100.0100, L500.4100, L500.3400, L3300.4490, L501.9520, L500.2500, L501.9985 #### [facility] [address] [place], [place], [id number] ([phone]) Globulin (S) [Mass/Vol] 4.1 g/dL Normal 2.2-4.2 [facility] Comment on above: Performed By: #### L 100.0100, L500.4100, L500.3400, L3300.4490, L501.9520, L500.2500, L501.9985 #### [facility] [address] [place], [address] (308) T PROT 7.5 g/dL Normal 6.4-8.[address] [facility] Comment on above: Performed By: #### L 100.0100, L500.4100, L500.3400, L3300.4490, L501.9520, L500.2500, L501.9985 #### [facility] [address] [place], [place], [id number] [phone] Low density lipoprotein (LDL ) cholesterol measurementOrdered By: Erika Faye on 07-02-2024 Cholesterol in LDL [Mass/Vol] 44 mg/dL 0-[address] [facility] MCV (mean corpuscular volume ) determinationOrdered By: Erika Faye on 07-02-2024 MCV (RBC) [Entitic vol] 104.2 fL High 80-94 [facility] Mean corpuscular hemoglobin (MCH) determinationOrdered By: Erika Faye on 07-02-2024 MCH (RBC) [Entitic mass] 33.2 pg High 27.0-32.[address] [facility] Mean corpuscular hemoglobin concentration (MCHC) determinationOrdered By: Erika Faye on 07-02-2024 MCHC (RBC) [Mass/Vol] 31.8 g/dL Low 32-36 [facility] Mean platelet volume determi nationOrdered By: Erika Faye on 07-02-2024 Platelet mean volume (Bld) [Entitic vol] 11.8 fL 6.2-12.[address] [facility] Monocyte percentageOrdered B y: Erika Faye on 07-02-2024 Monocytes/100 WBC (Bld) 10.4 % High 0-10 [facility] Neutrophil percentageOrdered By: Erika Faye on 07-02-2024 Neutrophils/100 WBC (Bld) 64.4 % 47-[address] [facility] Nucleated red blood cell per centageOrdered By: Erika Faye on 07-02-2024 Nucleated RBC/100 WBC (Bld) [Ratio] 0 % 0-[address] [facility] Platelet countOrdered By: Hyacinth Faye on 07-02-2024 Platelets (Bld) [#/Vol] 226 10*3/uL 150-[address] [facility] Potassium measurementOrdered By: Erika Faye on 07-02-2024 Potassium [Moles/Vol] 5.8 mmol/L High 3.5-5.1 [facility] RBC Auto (Bld) [#/Vol]Ordere d By: Erika Faye on 07-02-2024 RBC (Bld) [#/Vol] 4.31 10*6/uL Low 4.6-6.2 [facility] Serum anion gap measurementO rdered By: Erika Faye on 07-02-2024 Anion gap [Moles/Vol] 5 mmol/L 5-15 [facility] Serum globulin measurementOr dered By: Erika Faye on 07-02-2024 Globulin (S) [Mass/Vol] 4.1 g/dL 2.2-4.2 [facility] Serum or plasma alanine mcbride otransferase (ALT) measurementOrdered By: Erika Faye on 07-02-2024 ALT [Catalytic activity/Vol] 23 U/L 16-[address] [facility] Serum or plasma albumin daysi urement (mass/volume)Ordered By: Erika Faye on 07-02-2024 Albumin [Mass/Vol] 3.4 g/dL 3.2-5.0 [facility] Serum or plasma alkaline ralph sphatase measurementOrdered By: Erika Faye on 07-02-2024 ALP [Catalytic activity/Vol] 88 U/L 45-[address] [facility] Serum or plasma calcium daysi urement (mass/volume)Ordered By: Erika Faye on 07-02-2024 Calcium [Mass/Vol] 9.4 mg/dL 8.5-10.1 [facility] Serum or plasma cholesterol measurement (mass/volume)Ordered By: Erika Faye on 07-02-2024 Cholesterol [Mass/Vol] 124 mg/dL <200 [facility] Comment on above: <200 mg/dL Desirable 200-240 mg/dL Borderline >240 mg/dL High Risk Serum or plasma creatinine m easurement (mass/volume)Ordered By: Erika Faye on 07-02-2024 Creatinine [Mass/Vol] 1.10 mg/dL 0.70-1.30 [facility] Comment on above: The validity of the calculated GFR & GFRAA in patients over 70 years has not been determined. Clinical correlation is essential. Serum or plasma thyroid stim ulating hormone (TSH) measurement (units/volume)Ordered By: Erika Faye on 07-02-2024 TSH Qn 1.680 uIU/mL 0.358-3.[address] [facility] Serum or plasma urea nitroge n measurement (mass/volume)Ordered By: Erika Faye on 07-02-2024 Urea nitrogen [Mass/Vol] 21 mg/dL High 7-[address] [facility] Sodium levelOrdered By: Chacha Faye on 07-02-2024 Sodium [Moles/Vol] 141 mmol/L 136-145 [facility] Thyroid Stim Hormone (TSH)on 07-02-2024 TSH 1.680 uIU/mL Normal 0.358-3.[address] [facility] Comment on above: Performed By: #### L 100.0100, L500.4100, L500.3400, L3300.4490, L501.9520, L500.2500, L501.9985 #### [facility] [place], [address] Total proteinOrdered By: Fred Faye on 07-02-2024 Protein [Mass/Vol] 7.5 g/dL 6.4-8.2 [facility] Triglycerides measurementOrd ered By: Erika Faye on 07-02-2024 Triglyceride [Mass/Vol] 65 mg/dL <199 [facility] Comment on above: The drugs N-Acetylcy steine and Metamizole may falsely depress this assay.Serum Triglycerides Reference Interval Normal <150 mg/dL Borderline high 150 - 199 mg/dL High 200 - 499 mg/dL Very High > or = 500 mg/dL Very low density lipoprotein (VLDL) cholesterol measurementOrdered By: Erika Faye on 07-02-2024 Very low density lipoprotein (VLDL) cholesterol measurement 13 mg/dL 5-[address] [facility] White blood cell (WBC) count Ordered By: Erika Faye on 07-02-2024 WBC (Bld) [#/Vol] 7.0 10*3/uL 4.4-11.0 [facility] LDL, Directon 12-31-2023 Cholesterol in LDL [Mass/Vol] 64 mg/dL Normal 0-[address] [facility] Comment on above: Result Comment: Perf ormed at: - [facility] [address] [id number] [place] Supervisor: Andrew Escobar PhD, Phone: [phone] Performed By: #### L 100.0100, L500.4100, L500.3400, L3300.4490, L501.9520, L500.2500, L501.9985 #### [facility] [address] [place], [place], [id number] COMMENT TNP Normal . [facility] Comment on above: Performed By: #### L 100.0100, L500.4100, L500.3400, L3300.4490, L501.9520, L500.2500, L501.9985 #### [facility] [address] [place], [place], [id number] CBC W/Diff, Automatedon - Absolute Lymph 1.16 X10 3/uL Normal 0.83-4.[address] [facility] Comment on above: Performed By: #### L 501.9520, L500.4100, L500.3400, L100.0100, L3300.4490 #### [facility] [address] [place], [address] Absolute Neut 3.9 X10 3/uL Normal 2.0-7.[address] [facility] Comment on above: Performed By: #### L 501.9520, L500.4100, L500.3400, L100.0100, L3300.4490 #### [facility] [address] [place], [address] Basophils/100 WBC (Bld) 0.5 % Normal 0-1 [facility] Comment on above: Performed By: #### L 501.9520, L500.4100, L500.3400, L100.0100, L3300.4490 #### [facility] [address] [place], [address] Eosinophils/100 WBC (Bld) 4.3 % Normal 0-[address] [facility] Comment on above: Performed By: #### L 501.9520, L500.4100, L500.3400, L100.0100, L3300.4490 #### [facility] [address] [place], [address] Erythrocyte distribution width (RBC) [Ratio] 13.9 % Normal 11.6-14.[address] [facility] Comment on above: Performed By: #### L 501.9520, L500.4100, L500.3400, L100.0100, L3300.4490 #### [facility] [address] [place], [address] Hematocrit (Bld) [Volume fraction] 44.9 % Normal 40-[address] [facility] Comment on above: Performed By: #### L 501.9520, L500.4100, L500.3400, L100.0100, L3300.4490 #### [facility] [address] [place], [address] Hemoglobin (Bld) [Mass/Vol] 15.4 g/dL Normal 13.0-16.[address] [facility] Comment on above: Performed By: #### L 501.9520, L500.4100, L500.3400, L100.0100, L3300.4490 #### [facility] [address] [place], [address] IG% 0.200 Normal 0.0-0.[address] [facility] Comment on above: Result Comment: IG% - Immature Granulocytes (promyelocytes, myelocytes and metamyelocytes) > 1% indicates that a LEFT SHIFT is Present. Performed By: #### L 501.9520, L500.4100, L500.3400, L100.0100, L3300.4490 #### [facility] [address] [place], [address] Lymphocytes/100 WBC (Bld) 19.1 % Normal 19-[address] [facility] Comment on above: Performed By: #### L 501.9520, L500.4100, L500.3400, L100.0100, L3300.4490 #### [facility] [address] [place], [address] MCH (RBC) [Entitic mass] 34.7 pg High 27.0-32.[address] [facility] Comment on above: Performed By: #### L 501.9520, L500.4100, L500.3400, L100.0100, L3300.4490 #### [facility] [address] [place], [address] MCHC (RBC) [Mass/Vol] 34.3 g/dL Normal 32-36 [facility] Comment on above: Performed By: #### L 501.9520, L500.4100, L500.3400, L100.0100, L3300.4490 #### [facility] [address] [place], [address] MCV (RBC) [Entitic vol] 101.1 fL High 80-94 [facility] Comment on above: Performed By: #### L 501.9520, L500.4100, L500.3400, L100.0100, L3300.4490 #### [facility] [address] [place], [address] Monocytes/100 WBC (Bld) 11.8 % High 0-10 [facility] Comment on above: Performed By: #### L 501.9520, L500.4100, L500.3400, L100.0100, L3300.4490 #### [facility] [address] [place], [address] Neutrophils/100 WBC (Bld) 64.1 % Normal 47-[address] [facility] Comment on above: Performed By: #### L 501.9520, L500.4100, L500.3400, L100.0100, L3300.4490 #### [facility] [address] [place], [address] Nucleated RBC (Bld) [#/Vol] 0 10*3/uL Normal 0-[address] [facility] Comment on above: Performed By: #### L 501.9520, L500.4100, L500.3400, L100.0100, L3300.4490 #### [facility] [address] [place], [address] Platelet mean volume (Bld) [Entitic vol] 10.7 fL Normal 6.2-12.[address] [facility] Comment on above: Performed By: #### L 501.9520, L500.4100, L500.3400, L100.0100, L3300.4490 #### [facility] [address] [place], [address] Platelets (Bld) [#/Vol] 252 10*3/uL Normal 150-[address] [facility] Comment on above: Performed By: #### L 501.9520, L500.4100, L500.3400, L100.0100, L3300.4490 #### [facility] [address] [place], [address] RBC (Bld) [#/Vol] 4.44 10*6/uL Low 4.6-6.2 [facility] Comment on above: Performed By: #### L 501.9520, L500.4100, L500.3400, L100.0100, L3300.4490 #### [facility] [address] [place], [address] RDW SD 52.2 fl High 35.1-43.[address] [facility] Comment on above: Performed By: #### L 501.9520, L500.4100, L500.3400, L100.0100, L3300.4490 #### [facility] [address] [place], [address] WBC (Bld) [#/Vol] 6.1 10*3/uL Normal 4.4-11.0 [facility] Comment on above: Performed By: #### L 501.9520, L500.4100, L500.3400, L100.0100, L3300.4490 #### [facility] [address] [place], [address] Lipid Profileon 12-30-2023 Cholesterol [Mass/Vol] 145 mg/dL Normal 200 [facility] Comment on above: Result Comment: <200 mg/dL Desirable 200-240 mg/dL Borderline >240 mg/dL High Risk Performed By: #### L 100.0100, L500.4100, L500.3400, L3300.4490, L501.9520, L500.2500, L501.9985 #### [facility] [address] [place], [address] Cholesterol in HDL [Mass/Vol] 85 mg/dL Normal [facility] Comment on above: Result Comment: The drugs N-Acetylcysteine and Metamizole may falsely depress this assay. Reference Range HDL <40 mg/dL Low HDL Cholesterol HDL >or= 60 mg/dL High HDL Cholesterol Performed By: #### L 100.0100, L500.4100, L500.3400, L3300.4490, L501.9520, L500.2500, L501.9985 #### [facility] [address] [place], [address] Cholesterol in LDL [Mass/Vol] 44 mg/dL Normal 0-[address] [facility] Comment on above: Performed By: #### L 100.0100, L500.4100, L500.3400, L3300.4490, L501.9520, L500.2500, L501.9985 #### [facility] [address] [place], [address] Cholesterol in VLDL [Mass/Vol] 16 mg/dL Normal 5-[address] [facility] Comment on above: Performed By: #### L 100.0100, L500.4100, L500.3400, L3300.4490, L501.9520, L500.2500, L501.9985 #### [facility] [address] [place], [address] Triglyceride [Mass/Vol] 79 mg/dL Normal [facility] Comment on above: Result Comment: The drugs N-Acetylcysteine and Metamizole may falsely depress this assay. Serum Triglycerides Reference Interval Normal <150 mg/dL Borderline high 150 - 199 mg/dL High 200 - 499 mg/dL Very High > or = 500 mg/dL Performed By: #### L 100.0100, L500.4100, L500.3400, L3300.4490, L501.9520, L500.2500, L501.9985 #### [facility] [address] [place], [address] Liver Profileon 12-30-2023 Albumin [Mass/Vol] 3.5 g/dL Normal 3.2-5.0 [facility] Comment on above: Performed By: #### L 100.0100, L500.4100, L500.3400, L3300.4490, L501.9520, L500.2500, L501.9985 #### [facility] [address] [place], [address] ALK P 89 U/L Normal 45-[address] [facility] Comment on above: Performed By: #### L 100.0100, L500.4100, L500.3400, L3300.4490, L501.9520, L500.2500, L501.9985 #### [facility] [address] [place], [address] ALT [Catalytic activity/Vol] 27 U/L Normal 16-[address] [facility] Comment on above: Performed By: #### L 100.0100, L500.4100, L500.3400, L3300.4490, L501.9520, L500.2500, L501.9985 #### [facility] [address] [place], [address] AST [Catalytic activity/Vol] 16 U/L Normal 15-[address] [facility] Comment on above: Performed By: #### L 100.0100, L500.4100, L500.3400, L3300.4490, L501.9520, L500.2500, L501.9985 #### [facility] [address] [place], [address] Bilirubin [Mass/Vol] 0.80 mg/dL Normal 0.20-1.00 [facility] Comment on above: Result Comment: For patients on eltrombopag therapy, use of Dimension [place] TBIL is not recommended. Performed By: #### L 100.0100, L500.4100, L500.3400, L3300.4490, L501.9520, L500.2500, L501.9985 #### [facility] [address] [place], [address] Bilirubin.direct [Mass/Vol] 0.21 mg/dL Normal 0.00-0.[address] [facility] Comment on above: Performed By: #### L 100.0100, L500.4100, L500.3400, L3300.4490, L501.9520, L500.2500, L501.9985 #### [facility] [address] [place], [address] Globulin (S) [Mass/Vol] 4.0 g/dL Normal 2.2-4.2 [facility] Comment on above: Performed By: #### L 100.0100, L500.4100, L500.3400, L3300.4490, L501.9520, L500.2500, L501.9985 #### [facility] [address] [place], [address] T PROT 7.5 g/dL Normal 6.4-8.[address] [facility] Comment on above: Performed By: #### L 100.0100, L500.4100, L500.3400, L3300.4490, L501.9520, L500.2500, L501.9985 #### [facility] [address] [place], [address] Thyroid Stim Hormone (TSH)on 12-30-2023 TSH 2.86 uIU/mL Normal 0.358-3.[address] [facility] Comment on above: Performed By: #### L 100.0100, L500.4100, L500.3400, L3300.4490, L501.9520, L500.2500, L501.9985 #### [facility] [address] [place], [address] Gram stain for investigation of transfusion reactionOrdered By: Alden Lopez on 10-09-2023 Microscopic observation Gram stain Nom (Unsp spec) [facility] No Panel InformationOrdered By: Alden Lopez on 10-09-2023 Nasopharyngeal Culture Acinetobacter Lwoffi [facility] .Auto Diffon 01-06-2018 Basophils Auto #/vol (Bld) 0.00 10 3/mcL Normal 0.00-0.19 [facility] ([place]) Comment on above: Performed By: #### C BC, ADIFF, ANEU, APTT, PRO ####[address] [place] [address]#### TROP, BMP, GFR ####[address] [address] Basophils/100 WBC Auto (Bld) 0.5 % Normal 0.0-2.5 [facility] ([place]) Comment on above: Performed By: #### C BC, ADIFF, ANEU, APTT, PRO ####[place] [address]#### TROP, BMP, GFR ####[address] [address] Eosinophils 0.30 10 3/mcL Normal 0.00-0.40 [facility] ([place]) Comment on above: Performed By: #### C BC, ADIFF, ANEU, APTT, PRO ####[address]ika [address] [place] [address]#### TROP, BMP, GFR ####[address] [address] Eosinophils/100 leukocytes 4.4 % Normal 0.0-7.0 [facility] ([place]) Comment on above: Performed By: #### C BC, ADIFF, ANEU, APTT, PRO ####Monika [address] [place] [address]#### TROP, BMP, GFR ####[address] [address] Lymphocytes 2.40 10 3/mcL Normal 0.77-3.85 [facility] ([place]) Comment on above: Performed By: #### C BC, ADIFF, ANEU, APTT, PRO ####[place] [address]#### TROP, BMP, GFR ####[address] [address] Lymphocytes/100 leukocytes 33.0 % Normal 10.0-50.0 [facility] ([place]) Comment on above: Performed By: #### C BC, ADIFF, ANEU, APTT, PRO ####[place] [address]#### TROP, BMP, GFR ####[address] [address] Monocytes 0.80 10 3/mcL Normal 0.15-1.00 [facility] ([place]) Comment on above: Performed By: #### C BC, ADIFF, ANEU, APTT, PRO ####[place] [address]#### TROP, BMP, GFR ####[address] [address] Monocytes/100 leukocytes 11.4 % Normal 1.7-13.0 [facility] ([place]) Comment on above: Performed By: #### C BC, ADIFF, ANEU, APTT, PRO ####[place] [address]#### TROP, BMP, GFR ####[address] [address] Neutrophils/100 WBC Auto (Bld) 50.7 % Normal 37.0-80.0 [facility] ([place]) Comment on above: Performed By: #### C BC, ADIFF, ANEU, APTT, PRO ####[place] [address]#### TROP, BMP, GFR ####[address] [address] .GFRon 01-06-2018 GFR Non- 73 ml/min/1.73sqm Normal [facility] ([place]) Comment on above: Result Comment: GFR Population mean for , Non- Americans Ages 20-29 = 116 mL/min/1.73 sq.m. Ages 30-39 = 107 mL/min/1.73 sq.m. Ages 40-49 = 99 mL/min/1.73 sq.m. Ages 50-59 = 93 mL/min/1.73 sq.m. Ages 60-69 = 85 mL/min/1.73 sq.m. Ages 70+ = 75 mL/min/1.73 sq.m.Chronic Kidney Disease: Less than 60 mL/min/1.73 square metersEnd Stage Renal Disease: Less than 15 mL/min/1.73 square meters Performed By: #### C BC, ADIFF, ANEU, APTT, PRO ####[address] [place], [place] [address]#### TROP, BMP, GFR ####[place] [address] GFR 88 ml/min/1.73sqm Normal [facility] ([place]) Comment on above: Result Comment: GFR Population mean for , Non- Americans Ages 20-29 = 116 mL/min/1.73 sq.m. Ages 30-39 = 107 mL/min/1.73 sq.m. Ages 40-49 = 99 mL/min/1.73 sq.m. Ages 50-59 = 93 mL/min/1.73 sq.m. Ages 60-69 = 85 mL/min/1.73 sq.m. Ages 70+ = 75 mL/min/1.73 sq.m.Chronic Kidney Disease: Less than 60 mL/min/1.73 square metersEnd Stage Renal Disease: Less than 15 mL/min/1.73 square meters Performed By: #### C BC, ADIFF, ANEU, APTT, PRO ####[address] [place], [place] [address]#### TROP, BMP, GFR ####[address] [address] .NEUABSon 01-06-2018 Neutrophil, Absolute 3.80 10 3/mcL Normal 2.85-6.16 [facility] ([place]) Comment on above: Performed By: #### C BC, ADIFF, ANEU, APTT, PRO ####[place] [address]#### TROP, BMP, GFR ####[place] [address] APTTon 01-06-2018 aPTT None Normal [facility] ([place]) Comment on above: Performed By: #### C BC, ADIFF, ANEU, APTT, PRO ####[place] [address]#### TROP, BMP, GFR ####[place] [address] aPTT 34.1 s Normal 25.1-37.9 [facility] ([place]) Comment on above: Result Comment: For Heparin anticoagulation therapy, the recommendedtherapeutic range is: 47.7-87.7 seconds (1.5 - 2.5 the normalplasma mean). Patients on heparin therapy may have an extreme result. Performed By: #### C BC, ADIFF, ANEU, APTT, PRO ####[place] [address]#### TROP, BMP, GFR ####[place] [address] BMPon 01-06-2018 BUN/Creatinine Ratio 24 ratio Normal 7-27 [facility] ([place]) Comment on above: Performed By: #### C BC, ADIFF, ANEU, APTT, PRO ####[place] [address]#### TROP, BMP, GFR ####[place] [address] Calcium 9.7 mg/dL Normal 8.4-10.2 [facility] ([place]) Comment on above: Performed By: #### C BC, ADIFF, ANEU, APTT, PRO ####[place] [address]#### TROP, BMP, GFR ####[place] [address] Chloride 104 mmol/L Normal 98-107 [facility] ([place]) Comment on above: Performed By: #### C BC, ADIFF, ANEU, APTT, PRO ####[place] [address]#### TROP, BMP, GFR ####[place] [address] CO2 24 mmol/L Normal 23-31 [facility] ([place]) Comment on above: Performed By: #### C BC, ADIFF, ANEU, APTT, PRO ####[place] [address]#### TROP, BMP, GFR ####[place] [address] Creatinine 1.04 mg/dL Normal 0.70-1.30 [facility] ([place]) Comment on above: Performed By: #### C BC, ADIFF, ANEU, APTT, PRO ####[place] [address]#### TROP, BMP, GFR ####[place] [address] Electrolyte Balance 11.0 mEq/L Normal [facility] ([place]) Comment on above: Performed By: #### C BC, ADIFF, ANEU, APTT, PRO ####[place] [address]#### TROP, BMP, GFR ####[place] [address] Glucose mass conc 117 mg/dL High 80-115 [facility] ([place]) Comment on above: Performed By: #### C BC, ADIFF, ANEU, APTT, PRO ####[place] [address]#### TROP, BMP, GFR ####[place] [address] Potassium molar conc 4.9 mmol/L Normal 3.5-5.1 [facility] ([place]) Comment on above: Performed By: #### C BC, ADIFF, ANEU, APTT, PRO ####[address] [address]#### TROP, BMP, GFR ####[place] [address] Sodium 139 mmol/L Normal 136-145 [facility] ([place]) Comment on above: Performed By: #### C BC, ADIFF, ANEU, APTT, PRO ####[place] [address]#### TROP, BMP, GFR ####[place] [address] Urea nitrogen 25 mg/dL High 7-18 [facility] ([place]) Comment on above: Performed By: #### C BC, ADIFF, ANEU, APTT, PRO ####[place] [address]#### TROP, BMP, GFR ####[place] [address] CBCon 01-06-2018 Erythrocyte distribution width Auto Ratio (RBC) 14.5 % Normal 11.5-14.5 [facility] ([place]) Comment on above: Performed By: #### C BC, ADIFF, ANEU, APTT, PRO ####[place] [address]#### TROP, BMP, GFR ####[place] [address] Erythrocytes (RBC) 4.81 10 6/mcL Normal 4.04-6.13 [facility] [place]) Comment on above: Performed By: #### C BC, ADIFF, ANEU, APTT, PRO ####[place] [address]#### TROP, BMP, GFR ####[place] [address] Hematocrit (HCT) 45.9 % Normal 42.0-52.0 [facility] ([place]) Comment on above: Performed By: #### C BC, ADIFF, ANEU, APTT, PRO ####[place] [address]#### TROP, BMP, GFR ####[place] [address] Hemoglobin mass conc (Bld) 15.8 G/dL Normal 14.0-18.0 [facility] ([place]) Comment on above: Performed By: #### C BC, ADIFF, ANEU, APTT, PRO ####[place] [address]#### TROP, BMP, GFR ####[place] [address] MCH 32.7 pg High 27.0-31.2 [facility] ([place]) Comment on above: Performed By: #### C BC, ADIFF, ANEU, APTT, PRO ####[place] [address]#### TROP, BMP, GFR ####[place] [address] MCHC mass conc (RBC) 34.3 G/dL Normal 31.8-35.4 [facility] ([place]) Comment on above: Performed By: #### C BC, ADIFF, ANEU, APTT, PRO ####[place] [address]#### TROP, BMP, GFR ####[place] [address] MCV 95.4 fL High 80.0-94.0 [facility] ([place]) Comment on above: Performed By: #### C BC, ADIFF, ANEU, APTT, PRO ####[place] [address]#### TROP, BMP, GFR ####[place] [address] Platelet mean volume (PMV) 9.3 fL Normal 7.4-10.4 [facility] ([place]) Comment on above: Performed By: #### C BC, ADIFF, ANEU, APTT, PRO ####[place] [address]#### TROP, BMP, GFR ####[address] [address] Platelets 203 10 3/mcL Normal 130-400 [facility] ([place]) Comment on above: Performed By: #### C BC, ADIFF, ANEU, APTT, PRO ####Monika [address] [address]#### TROP, BMP, GFR ####[address] [address] WBC (Leukocytes) 7.40 10 3/mcL Normal 4.60-10.80 [facility] ([place]) Comment on above: Performed By: #### C BC, ADIFF, ANEU, APTT, PRO ####[place] [id number]#### TROP, BMP, GFR ####[place] [address] MGon 01-06-2018 Magnesium 2.0 mg/dL Normal 1.8-2.4 [facility] ([place]) Comment on above: Performed By: #### M G ####[address] Emergency Room Note on 01-06-2018 [facility] Note Normal [facility] ([place]) PROon 01-06-2018 INR Coag RelTime (PPP) 1.0 {INR} Normal 0.9-1.2 [facility] [place] Comment on above: Result Comment: Dominick dard Dose 2.0 - 3.0High Dose 2.5 - 3.5The recommended therapeutic range for oral anticoagulanttherapy is:LOW RISK: Prophylaxis of venous thrombosis INR: 2.0 - 3.0 Treatment of pulmonary embolism 2.0 - 3.0 Prevention of systemic embolism 2.0 - 3.0HIGH RISK: Mechanical prosthetic valves 2.5 - 3.5 Performed By: #### C BC, ADIFF, ANEU, APTT, PRO ####[address] [address]#### TROP, BMP, GFR ####[address] [address] Prothrombin time (PT) Coag time (PPP) 10.1 s Normal 9.3-14.6 [facility] ([place]) Comment on above: Performed By: #### C BC, ADIFF, ANEU, APTT, PRO ####[address] [place], [place] [address]#### TROP, BMP, GFR ####[address] [address] Pat Eduon 01-06-2018 Pat Edu Normal [facility] ([place]) Patient Summary Documentson 01-06-2018 Patient Summary Documents Normal [facility]) TROPon 01-06-2018 Troponin I.cardiac mass conc ng/mL Normal 0.000-0.040 [facility] ([place]) Comment on above: Result Comment: Trop onin I reference range: 0.00-0.040 ng/mL Negative and non-diagnostic. >0.040 ng/mL Consistent with cardiac damage, increased clinical risk and possibility of myocardial infarction. Serial measurements, a rise & fall in test results, clinical history, appropriate symptoms and/or ECG changes may help assess possibility of NM. *Other non-acute coronary syndrome conditions such as CHF, myocarditis, pulmonary emboli, sepsis and cardiac surgery could result in myocardial damage and increased troponin levels. Performed By: #### C BC, ADIFF, ANEU, APTT, PRO ####[address] [place], [place] [address]#### TROP, BMP, GFR ####[place] [address] XR CHEST 1 VIEWon 01-06-2018 XR CHEST 1 VIEW ORIGINALXR CHEST 1 V IEW PORTABLE AP CLINICAL STATEMENT: chest pain COMPARISON: None FINDINGS: The heart is enlarged. There are median sternotomy wires and mediastinal surgical clips. There is questionable LEFT retrocardiac opacity. There is no vascular congestion, large pleural effusion or pneumothorax. No acute osseous abnormality. IMPRESSION: Question LEFT retrocardiac opacity. Repeat examination with lateral radiograph when the patient's condition permits is recommended. Interpreted By: Chery Ro MDPreliminary Report By: Chery Ro MDElectronically Signed By: Chery Ro MD Dictated Date: 01/06/2018 12:10:46 PM Prelim Date: 01/06/2018 12:10:46 PM Sign Date: 01/06/2018 12:13:40 PM Normal [facility] ([place]) Vital Signs Date Time Vital Sign Value Performing Clinician Facility 10-27-2024 08:32-0400 Body height 185.[address] Erika Faye MD Work Phone: [facility] 10-27-2024 08:32-0400 Body mass index (BMI) [Ratio] 33.5 kg/m2 Dr. Erika Faye MD Work Phone: [facility] 10-27-2024 08:32-0400 Body weight 115.[address] Erika Faye MD Work Phone: [facility] 10-27-2024 08:32-0400 Diastolic blood pressure 65 mm[Hg] Dr. Erika Faye MD Work Phone: [facility] 10-27-2024 08:32-0400 Heart rate 81 /min Dr. Erika Faye MD Work Phone: [facility] 10-27-2024 08:32-0400 Respiratory rate 18 /min Dr. Erika Faye MD Work Phone: [facility] 10-27-2024 08:32-0400 Systolic blood pressure 136 mm[Hg] Dr. Erika Faye MD Work Phone: [facility] 08-12-2024 08:23-0500 Body height 185.4 cm Dino Aguirre MD Work Phone: [facility] 08-12-2024 08:23-0500 Body mass index (BMI) [Ratio] 34.43 kg/m2 Dino Aguirre MD Work Phone: [facility] 08-12-2024 08:23-0500 Body weight 118.39 kg Dino Aguirre MD Work Phone: [facility] 08-12-2024 08:23-0500 Diastolic blood pressure 72 mm[Hg] Dino Aguirre MD Work Phone: [facility] 08-12-2024 08:23-0500 Heart rate 72 /min Dino Aguirre MD Work Phone: [facility] 08-12-2024 08:23-0500 Systolic blood pressure 130 mm[Hg] Dino Aguirre MD Work Phone: [facility] Encounters Encounter Date Encounter Type Care Provider Facility Start: 11-23-2024 ambulatory Hubert Chamorro Facility:[facility] Start: 10-27-2024 End: 10-27-[address] Hubert Chamorro MD -[facility] Work Phone: Start: 10-27-2024 End: 10-27-[address] Erika Faye MD Work Phone: [facility] Work Phone: Start: 08-12-2024 End: 08-12-2024 Office outpatient new 30 minutes Dino Aguirre MD Work Phone: [facility] Comment on above: Palpitations (Primar y Dx); Ventricular premature depolarization Start: 08-12-2024 End: 08-12-2024 ambulatory CHAPMAN Valerie [facility] Start: 07-21-2024 End: 07-21-2024 ambulatory LE PALMA MD~[id number] [facility] Start: 07-16-2024 End: 07-16-[address] Erika Faye MD -[facility], [place] Work Phone: Start: 07-16-2024 End: 07-16-2024 ambulatory Erika Faye Facility:[facility] Start: 07-02-2024 End: 07-02-[address] Erika Faye MD -[facility], [place] Work Phone: Start: 07-02-2024 End: 07-02-2024 ambulatory Erika Faye Facility:[facility] Start: 12-30-2023 End: 12-30-2023 ambulatory Erika Faye Facility:[facility] Start: 10-09-2023 End: 10-09-[address] [facility] Work Phone: Start: 10-09-2023 End: 10-09-2023 Patient encounter procedure [facility] Work Phone: Start: 01-06-2018 End: 01-06-2018 Emergency department patient visit WINIFRED PIMENTEL Facility:B Procedures Date Procedure Procedure Detail Performing Clinician Start: 07-16-2024 Measurement of renal function Dr. Erika Faye MD Work Phone: Comment on above: GFR Calc Start: 07-02-2024 Measurement of renal function Dr. Erika Faye MD Work Phone: Comment on above: GFR Calc Start: 10-09-2023 Investigation of transfusion reaction Start: 10-09-2023 Nasopharyngeal Culture History of coronary artery bypass grafting History of coronary artery bypass graft x 3 Dr. Erika Faye MD Work Phone: Comment on above: SVG to the obtuse ma rginal and SVG to the right PDA totally occluded. MATTHEWS to LAD patent. Plan of Treatment Date Care Activity Detail Author Start: 10-27-2024 Evaluation of diagnostic study results [facility] Start: 02-03-1978 DTaP/Tdap/Td Vaccines (1 - Tdap) DTaP/Tdap/Td Vaccines (1 - Tdap) [facility] Start: 02-03-1974 Hepatitis C screening Hepatitis C Screening [facility] Start: 02-03-1966 Glaucoma screening Diabetes: Retinopathy Screening [facility] Start: 1955 Hemoglobin A1c measurement Diabetes: Hemoglobin A1C [facility] Start: 1956 Lipid panel Lipid Panel [facility] Start: 1956 Screening for malignant neoplasm of colon [facility] Start: 1956 Urine screening for protein Diabetes: Urine Protein Screening [facility] Start: 1955 Yearly Adult Physical Yearly Adult Physical [facility] ECG 12 lead (Clinic Performed) ECG 12 lead (Clinic Performed) ECG Routine Palpitations 08/12/2024 8:22 AM EST [facility] Service Area Work Phone: Immunizations Immunization Date Immunization Notes Care Provider Fa cility 09-19-2020 Covid (Pfizer) [facility] 08-29-2020 Covid (Pfizer) [facility] 04-13-2019 influenza, injectabl e, quadrivalent, preservative free Dino Aguirre MD Work Phone: [facility] Work Phone: Payers Date Payer Category Payer Self-pay [id number] 2022 [employer] Man[employer] [facility] [id number] 2018 Medicare [id number] 1958 Unknown [id number] 1955 Unknown [id number] 1956 Unknown [id number] Medicare MEDICARE A ONLY [id number] Unknown [id number] Unknown [id number] Unknown [id number] Unknown [id number] Unknown [id number] Social History Date Type Detail Facility Start: 11-04-2022 [facility] Start: 1955 Sex Assigned At Male [employer] [facility] Start: 08-12-2024 [facility] Work Phone: Start: 08-12-2024 Tobacco use and exposure Smokeless tobacco non-user [facility] Work Phone: Start: 08-12-2024 Alcoholic beverage intake Ex-drinker (finding) [facility] Work Phone: Start: 08-12-2024 History of Social function [facility] Work Phone: Start: 08-12-2024 Tobacco use panel [facility] Work Phone: Start: 1955 Sex assigned at Not on file [facility] Work Phone: Start: 08-02-2024 End: 08-12-2024 Exposure to SARS-CoV-2 (event) Not sure [facility] Start: 11-04-2022 [facility] daily (finding) [facility] History of Present illness Narrative 08-12-2024 Dino Aguirre MD - 08/12/2024 8:30 AM EST Note Date & Type Note Facility 08-12-2024 History of Present illness Narrative Subjective: The patient is a 69-year-old white male referred by Dr. Taqueria Palma because of frequent ventricular ectopy. The patient has a history of hypertension, diabetes, obesity with obstructive sleep apnea (on CPAP therapy), hyperlipidemia, and chronic obstructive pulmonary disease. He was found to have severe coronary disease in 2004, with left main coronary stenosis and right coronary artery occlusion, I believe. He underwent 3-vessel CABG at [facility] in [place], as he was living in [place] at the time. He has had some percutaneous interventions since then, but denies ever suffering asymptomatic myocardial infarction. The patient a woman from [place], [place], in 2007, and moved to [facility]. He has been followed by cardiology, and developed a new right bundle branch block sometime between 2018 and 2022. He was recently found to have frequent ventricular ectopy with a PVC burden of 17% by 48-hour Holter monitoring, with an average heart rate of 71 bpm and range from 48 to 123 bpm. 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 He was started on beta-zuhair therapy with Toprol-XL 50 mg daily and has felt much better since then, with greater exercise capacity and fewer palpitations. The patient attended [employer] in the early 1970s, and got a degree in [employer] management. He worked in the past today [employer] in [place], [place]. 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 Neither he nor his have any children. Current Outpatient Medications Medication Sig amLODIPine (Norvasc) 5 mg tablet Take 1 tablet (5 mg) by mouth once daily at bedtime. aspirin 81 mg EC tablet Take 1 tablet (81 mg) by mouth once daily. atorvastatin (Lipitor) 80 mg tablet Take 1 tablet (80 mg) by mouth once daily. clopidogrel (Plavix) 75 mg tablet Take 1 tablet (75 mg) by mouth once daily. hydrALAZINE (Apresoline) 10 mg tablet Take 1 tablet (10 mg) by mouth 3 times a day. isosorbide mononitrate ER (Imdur) 60 mg 24 hr tablet Take 1 tablet (60 mg) by mouth once daily in the morning. lisinopril 40 mg tablet Take 1 tablet (40 mg) by mouth once daily. metFORMIN (Glucophage) 850 mg tablet Take 1 tablet (850 mg) by mouth every 12 hours. metoprolol succinate XL (Toprol-XL) 50 mg 24 hr tablet Take 1 tablet (50 mg) by mouth once daily. nitroglycerin (Nitrostat) 0.[address] 1 tablet (0.4 mg) under the tongue every 5 minutes if needed for chest pain. ranolazine (Ranexa) 1,000 mg 12 hr tablet Take 1 tablet (1,000 mg) by mouth 2 times a day. Trelegy Ellipta 200-62.5-25 mcg blister with device Inhale 1 puff once daily. Allergies: Patient has no known allergies. Patient Active Problem List Diagnosis CAD of autologous bypass graft Essential (primary) hypertension Ventricular premature depolarization Type 2 diabetes mellitus with other circulatory complications Palpitations Hyperkalemia Atherosclerotic heart disease of [place] coronary artery without angina pectoris Objective: Vitals: 08/12/24 0823 BP: 130/72 Pulse: 72 Height: 1.854 m (6' 1) Weight: 118 kg (261 lb) Exam: Gen: Stocky gentleman in no distress; alert and oriented. HEENT: No scleral icterus; facial rubor present. Neck: No jugular venous distention or thyromegaly. Chest: Old median sternotomy incisional scar. Lungs: Clear to auscultation, with no wheezes or rales. Heart: Regular rhythm with occasional extrasystoles but no murmurs noted. Abdomen: Obese but benign, with no organomegaly or masses. Extremities: Intact distal pulses; no edema. Neuro: No focal neurologic abnormalities. Skin: No cutaneous lesions. EKG: A 12-lead EKG today shows sinus arrhythmia with an average rate around 70 bpm, with evidence of an old inferior infarct, a complete right bundle branch block, right superior axis, and a single PVC (RB/RSA morphology) Impressions: 1. Chronic hypertension, controlled. 2. Coronary artery disease, status post 2005 CABG and subsequent percutaneous intervention. By EKG, the patient appears to have suffered a subclinical inferior myocardial infarction in the past. 3. 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 4. Frequent ventricular ectopy, likely from left ventricular inferior wall or papillary muscles. The patient had a 17% PVC burden recently, with anything over 10% felt to be a potential contributor to a cardiomyopathy. He has felt much better on beta-blockers. 5. Other medical problems, including type 2 diabetes, chronic obstructive pulmonary disease, hyperlipidemia, conduction system disease (RBBB), and obesity with obstructive sleep apnea. Recommendations: 1. Because the patient is clinically doing well on beta-blockers, I do not wish to make any changes, other than encouraging the patient to take some aioh-onb-reuoubs magnesium, which may be beneficial. 2. He will follow-up with Dr. Palma in a few months, and will likely undergo another Holter monitor and echocardiogram. If his PVC burden has not been brought under 10%, I would then likely add mexiletine therapy, which I discussed with him. The final option for PVC elimination would be ablation therapy, which I also discussed with him. 3. The patient will follow-up with Electrophysiology at the discretion of Dr. Palma. Dino Aguirre MD documented in this encounter [facility] Work Phone: Evaluation note Note Date & Type Note Facility Evaluation note No assessment information availa [facility] Work Phone: Evaluation note Note Date & Type Note Facility Evaluation note Diagnosis Palpitations- Primary Ventricular premature depolarization Other premature beats documented in this encounter [facility] Work Phone: Reason for referral (narrative) Note Date & Type Note Facility Reason for referral (narrative) No reason for referral information available [facility] Work Phone: Summary Purpose Family History No Family History Records FoundNo Family History Records FoundNo Family History Records FoundNo Family History Records Found Advance Directives No Advanced Directives Records Found Advance Directive Response Recorded Date/ Time Living Will Yes November 03, 2022 5 :56pm Power of Online Merchandising Coordinator Yes November 03, 2022 5:56pm Chief Complaint and Reason for Visit Chief Complaint Admit Date ESTABLISH (SELF) October 27, 2024 8:46a m Additional Source Comments (unrecognized sect ion and content) No Status Records FoundNo Status Records FoundNo Status Records FoundNo Status Records Found INFORMATION SOURCE (unrecogn ized section and content) DATE CREATED AUTHOR 01/07/2018 [facility] ([place] DATE CREATED AUTHOR AUTHOR'S ORGANIZ ATION 07/24/2024 [facility] DATE CREATED AUTHOR AUTHOR'S ORGANIZ ATION 08/14/2024 [facility] DATE CREATED AUTHOR AUTHOR'S ORGANIZ ATION 11/13/2024 [facility] Care Teams (unrecognized sec tion and content) Team Status: Active Member Role Status Dates Dr. Erika Faye MD Family Provider Active Dr. Erika Faye MD Primary Care Provider Active Team Status: Inactive Member Role Status Dates Dr. Erika Faye MD Primary Care Provider Active Dr. Alden Lopez MD Attending Provider Activ e Team Status: Active Member Role Status Dates Dr. Erika Faye MD Primary Care Provider Active Team Status: Inactive Member Role Status Dates Dr. Erika Faye MD Primary Care Provider Active Start: July 02, 2024 End: July 02, 2024 Dr. Erika Faye MD Attending Provider Active Start: July 02, 2024 End: July 02, 2024 Dr. Erika Faye MD Referring Provider Active Start: July 02, 2024 End: July 02, 2024 Team Status: Inactive Member Role Status Dates Dr. Erika Faye MD Primary Care Provider Active Start: July 16, 2024 End: July 16, 2024 Dr. Erika Faye MD Attending Provider Active Start: July 16, 2024 End: July 16, 2024 Dr. Erika Faye MD Referring Provider Active Start: July 16, 2024 End: July 16, 2024 Team Status: Inactive Member Role Status Dates Dr. Erika Faye MD Primary Care Provider Active Start: October 27, 2024 End: October 27, 2024 Dr. Erika Faye MD Referring Provider Active Start: October 27, 2024 End: October 27, 2024 Dr. Hubert Chamorro MD Attending Provider Active Start: October 27, 2024 End: October 27, 2024 Goals (unrecognized section and content) Goals may be documented in a n alternate sectionGoals may be documented in an alternate section Reason for Visit (unrecogniz ed section and content) Reason Comments New Patient Visit Specialty Diagnoses / Procedures Referred By Contac t Referred To Contact Diagnoses Palpitations Procedures ECG 12 lead (Clinic Performed) [place] [address] [place] [address] Phone: tel: fax: Referral ID Status Reason Start Date Expiration Date V isits Requested Visits Authorized [id number] Authorized 08/12/2024 08/12/2025 1 1 FOR RECORDS PERTAINING TO PATIENTS WHO ARE OR HAVE BEEN ENROLLED IN A CHEMICAL DEPENDENCY/SUBSTANCEABUSE PROGRAM, SOME INFORMATION MAY BE OMITTED. This clinical summary was aggregated from multiple sources. Caution should be exercised in using it in the provision of clinical care. This summary normalizes information from multiple sources, and as a consequence, information in this document may materially change the coding, format and clinical context of patient data. In addition, data may be omitted in some cases. CLINICAL DECISIONS SHOULD BE BASED ON THE PRIMARY CLINICAL RECORDS. [facility] [employer] [facility]. provides no warranty or guarantee of the accuracy or completeness of information in this document.
--- NOTE | 2024-11-23 10:33 | STRESSREP ---
Stress Test Report Date: 11/23/2024 Procedure: Pharmacologic stress nuclear imaging study Indications: Coronary artery disease Consent: Per the patient Procedure: The patient underwent pharmacologic (Regadenoson 0.4mg ) evaluation with a peak heart rate of 83 beats per minute (54%predicted maximal heart rate) and a peak blood pressure of 138/68 mmHg. The baseline ECG demonstrated sinus rhythm with right bundle branch block with inferolateral ST depressions. The peak pharmacologic ECG was nondiagnostic secondary to baseline abnormalities. Frequent PVCs pretest, during infusion and in recovery. There was no complaint of chest discomfort during pharmacologic infusion or recovery. The patient was injected with 14.4 millicuries of technetium 99m Cardiolite and subsequently rest SPECT Cardiolite nuclear imaging was obtained in the horizontal long, vertical long, and short axis views. The patient underwent pharmacologic (Regadenoson) evaluation. The patient was injected with 44.7 millicuries of technetium 99m Cardiolite and subsequently stress SPECT Cardiolite nuclear imaging was obtained in the horizontal long, vertical long, and short axis views. No gated images available. The examination was stopped secondary to completion of protocol. Rest and stress SPECT Cardiolite nuclear imaging status post realignment, normalization, and attenuation correction demonstrate moderate size reversible perfusion defect of the inferior wall suggestive of moderate ischemia. Impression: 1. Pharmacologic (Regadenoson) evaluation 2. Peak pharmacologic ECG with no diagnostic changes secondary to baseline abnormalities. 3. Frequent PVCs pretest and in recovery. 5. Moderate size reversible perfusion defect of the inferior wall suggestive of inferior and apical ischemia. 6. No gated images available.. This note was generated with [employer] software. It may contain incorrect words, spelling, and punctuation that were not noted in checking the note before signing.
== END | disposition home or self-care (01) ==
LOC: CVS 06:10
PROVIDERS: PCP Family Medicine; Referring Provider Internal Medicine Cardiovascular Disease; Visit Provider Internal Medicine Cardiovascular Disease
DX: I25.10 Atherosclerotic heart disease of native coronary artery without angina pectoris (principal); Z95.1 Presence of aortocoronary bypass graft
CPT/HCPCS: 78452; 93017; A9500; A4216; J2785

== ENCOUNTER → 2025-01-07 | Outpatient (CLI) | payer BC, SELFPAY ==
--- OUTSIDE RECORDS SUMMARY | 2025-01-07 07:10 | XMS RPT_ITS | CCD ---
Author Organization [facility] Care Team Providers Care Hydraulic Blocker Name Role Phone WINIFRED PIMENTEL Unavailable Unavailable LE ALCARAZ~[phone], LE Sandy Attendin g Unavailable LE ALCARAZ~[phone], LE Sandy Admittin g Unavailable YUNIER ALCARAZ, ERIKA Churchill Primary Care Unavailable Unavailable Primary Care Provider UnavailDINO Salvador Attending Unavailable DINO AGUIRRE Referring Unavailable Yunier ALCARAZ, Dr. James Primary Care Provider Dr. Erika Faye MD Attending Provider Dr. Erika Faye MD Referring Provider Dr. Hubert Chamorro MD Attending Provider Dr. Erika Faye MD Primary Care Provider Dr. Erika Faye MD Referring Provider Dr. Hubert Chamorro MD Referring Provider Dr. Hubert Chamorro MD Other Provider Erika Faye Primary Care Unavailable Pedro Pablo, Hubert Attending Unavailable Erika Faye Referring Unavailable Erika Faye Primary Care Unavailable Pedro Pablo, Hubert Consulting Unavailable Pedro Pablo, Hubert Attending Unavailable Pedro Pablo, Hubert Referring Unavailable Erika Faye Primary Care Unavailable Erika Fyae Attending Unavailable Erika Faye Referring Unavailable Erika Faye Primary Care Unavailable Erika Faye Attending Unavailable Erika Faye Referring Unavailable Erika Faye Primary Care Unavailable Pedro Pablo, Hubert Attending Unavailable Pedro Pablo, Hubert Referring Unavailable Erika Faye Referring Unavailable Erika Faye Primary Care Unavailable Erika Faye Attending Unavailable Medications Current Medications Medication Drug Class(es) Dates Sig (Normalized) Sig (Original) amLODIPine 5 mg oral tablet (3 sources) Dihydropyridine Calcium Channel Zuhair Start: 10-27-2024 take 1 tablet by mouth once daily Amlodipine 5 mg tablet Active 5 mg PO daily October 27, 2024 12:00am take 1 tablet by giovanni th once daily at bedtime amLODIPine (Norvasc) 5 mg tablet Take 1 tablet (5 mg) by mouth once daily at bedtime. Active aspirin 81 mg delayed release oral tablet (4 sources) Platelet Aggregation Inhibitor, Nonsteroidal Anti-inflammatory Drug Start: 04-05-2019 take 1 tablet by mouth once daily Aspirin (Adult Aspirin Regimen) 81 mg tablet,delayed release (DR/EC) Active 81 mg PO DAILY April 05, 2019 12:00am atorvastatin 80 mg oral tablet (6 sources) HMG-CoA Reductase Inhibitor Start: 10-27-2024 take [...] daily. Active clopidogrel 75 mg oral tablet (4 sources) P2Y12 Platelet Inhibitor Start: 04-05-2019 take 1 tablet by mouth once daily Clopidogrel (Plavix) 75 mg tablet Active 75 mg PO DAILY April 05, 2019 12:00am dapagliflozin 10 mg oral tablet (1 source) Sodium-Glucose Cotransporter 2 Inhibitor Start: 10-27-2024 take 1 tablet by mouth once daily Dapagliflozin Propanediol 10 mg tablet Active 10 mg PO daily October 27, 2024 12:00am Fluticasone-Umeclid in-Vilanter (2 sources) Start: 10-27-2024 Fluticasone-Umeclid in-Vilanter (Trelegy Ellipta) 200-62.5-25 mcg blister with device Active 1 NMA INHALATION daily October 27, 2024 12:00am hydrALAZINE hydrochloride 10 mg oral tablet (3 sources) Arteriolar Vasodilator Start: 10-27-2024 take 1 [...] mononitrate 60 mg extended release oral tablet (3 sources) Nitrate Vasodilator Start: 10-27-2024 take 1 [...] morning. Active lisinopril 40 mg oral tablet (6 sources) Angiotensin Converting Enzyme Inhibitor Start: 10-27-2024 [...] mg) by mouth once daily. Active Magnesium (2 sources) Start: 10-27-2024 take 1 tablet by mouth once daily Magnesium 250 mg tablet Active 250 mg PO daily October 27, 2024 12:00am metFORMIN hydrochloride 1000 mg oral tablet (4 sources) Biguanide Start: 04-05-2019 Metformin 1,00 0 [...] 12 hours. Active 24 hr metoprolol succinate 100 mg extended release oral capsule (4 sources) beta-Adrenergic Zuhair Start: 10-27-2024 take 1 capsule by mouth once daily Metoprolol Succinate 100 mg capsule,sprinkle,ER 24hr Active 100 mg PO daily October 27, 2024 12:00am Start: 10-27-2024 End: 10-27-2024 take 1 capsule by mouth once daily Metoprolol Succinate 50 mg capsule,sprinkle,ER 24hr Discontinued 50 mg PO daily October 27, 2024 12:00am October 27, 2024 3:56pm take 1 tablet by giovanni th once daily metoprolol succinate XL (Toprol-XL) 50 mg 24 hr tablet Take 1 tablet (50 mg) by mouth once daily. Active nitroglycerin 0.4 mg sublingual tablet (4 sources) Nitrate Vasodilator Start: 10-27-2024 End: 10-27-2024 Nitroglycerin 0.4 mg tablet, sublingual Active 0.4 mg SL every 5 to 15 minutes as needed for chest pain October 27, 2024 3:58pm do not exceed 3 doses per episode nitroglycerin (N itrostat) 0.[address] 1 tablet (0.4 mg) under the tongue every 5 minutes if needed for chest pain. Active 12 hr ranolazine 1000 mg extended release oral tablet (4 sources) Anti-anginal Start: 04-05-2019 take 1 tablet [...] (Original) isosorbide dinitrate 5 mg oral tablet (3 sources) Nitrate Vasodilator Start: 04-05-2019 End: 10-27-2024 Isosorbide Dinitrate 5 mg tablet Discontinued 30 mg PO DAILY April 05, 2019 12:00am October 27, 2024 8:56am Start: 04-05-2019 take 30 mg by mouth once daily Isosorbide Dinitrate Active 30 MG PO DAILY April 05, 2019 12:00am predniSONE 20 mg oral tablet (3 sources) Start: 11-05-2022 End: 10-27-2024 take 2 tablets by mouth once daily Prednisone 20 mg tablet Discontinued 40 mg PO DAILY 03 20November 05, 2022 12:00am October 27, 2024 8:57am Start: 11-05-2022 take 40 mg by mouth once daily Prednisone Active 40 MG PO DAILY 03 20November 05, 2022 12:00am terbinafine 250 mg oral tablet (3 sources) Allylamine Antifungal Start: 11-04-2022 End: 10-27-2024 take 1 tablet by mouth once daily Terbinafine Hcl 250 mg tablet Discontinued 250 mg PO DAILY November 04, 2022 12:00am October 27, 2024 8:57am Problems Active Problems Problem Classification Problem Date Documented Date Episodic/Chronic Acute bronchitis (3 sources) Acute bronchitis; Translations: [Acute bronchitis, unspecified] 04-05-2019 Episodic Cardiac dysrhythmias (8 sources) Ventricular premature depolarization; Translations: [Ventricular premature complex] Onset: 07-22-2024 08-12-2024 Chronic Cardiac dysrhythmias (6 sources) Palpitations; Translations: [Palpitations] Onset: 07-22-2024 08-12-2024 Episodic Chronic obstructive pulmonary disease and bronchiectasis (6 sources) Acute exacerbation of chronic obstructive airways disease; Translations: [Chronic obstructive pulmonary disease with (acute) exacerbation] 11-13-2022 Chronic Complication of device; implant or graft (1 source) 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 His tory of percutaneous intervention to the right coronary artery and LMCA. Unsuccessful attempted PCI of right PDA. Coronary atherosclerosis and other heart disease (5 sources) Stented coronary artery; Translations: [Presence of coronary angioplasty implant and graft] Onset: 12-02-2024 10-27-2024 Episodic Comment on above: AMINAH to the RCA and t o the LMCA. Diabetes mellitus with complications (5 sources) Type 2 diabetes mellitus; Translations: [Type 2 diabetes mellitus with other circulatory complications] Onset: 01-13-2024 08-09-2024 Chronic Disorders of lipid metabolism (2 sources) Dyslipidemia; Translations: [Hyperlipidemia, unspecified] 10-27-2024 Chronic Essential hypertension (5 sources) Essential hypertension; Translations: [Essential (primary) hypertension] Onset: 07-22-2024 08-09-2024 Chronic Other and ill-defined heart disease (2 sources) Heart disease; Translations: [Heart disease, unspecified] 10-26-2024 Chronic Other and ill-defined heart disease (1 source) Heart disease, unspecified; Translations: [Heart disease, unspecified] Onset: 10-27-2024 Chronic Other lower respiratory disease (3 sources) Cough; Translations: [Cough] 04-05-2019 Episodic Other nutritional; endocrine; and metabolic disorders (3 sources) Obese class I; Translations: [Class 1 obesity] 10-27-2024 Chronic Other upper respiratory disease (3 sources) Bleeding from nose; Translations: [Epistaxis] 08-12-2019 Episodic Residual codes; unclassified (3 sources) Obstructive sleep apnea syndrome; Translations: [Obstructive sleep apnea (adult) (pediatric)] 10-27-2024 Chronic Past or Other Problems Problem Classification Problem Date Documented Da te Episodic/Chronic Fluid and electrolyte disorders (2 sources) Hyperkalemia; Translations: [Hyperkalemia] Onset: 07-30-2024 08-09-2024 Episodic Results Test Name Value Interpretation Reference Range Facility Cardiovascular stress test r eportOrdered By: Hubert Chamorro on 11-23-2024 Study report [facility] [address] [place] [address] MR#: [id number] Acct: [id number] Name: DENISE GÓMEZ Rep #: [id number] : 1955 69 From: Hubert Chamorro MD Primary Care: Dr. Erika Faye MD Statu s: REG CLI Referring Dr: Hubert Chamorro MD Sex: M C Stress Test Report Date: 11/23/2024 Procedure: Pharmacologic stress nuclear imaging study Indications: Coronary artery disease Consent: Per the patient Procedure: The patient underwent pharmacologic (Regadenoson 0.4mg ) evaluation with a peak heart rate of 83 beats per minute (54%predicted maximal heart rate) and a peak blood pressure of 138/68 mmHg. The baseline ECG demonstrated sinus rhythm with right bundle branch block with inferolateral ST depressions. The peak pharmacologic ECG was nondiagnostic secondary to baseline abnormalities. Frequent PVCs pretest, during infusion and in recovery. There was no complaint of chest discomfort during pharmacologic infusion or recovery. The patient was injected with 14.4 millicuries of technetium 99m Cardiolite and subsequently rest SPECT Cardiolite nuclear imaging was obtained in the horizontal long, vertical long, and short axis views. The patient underwent pharmacologic (Regadenoson) evaluation. The patient was injected with 44.7 millicuries of technetium 99m Cardiolite and subsequently stress SPECT Cardiolite nuclear imaging was obtained in the horizontal long, vertical long, and short axis views. No gated images available. The examination was stopped secondary to completion of protocol. Rest and stress SPECT Cardiolite nuclear imaging status post realignment, normalization, and attenuation correction demonstrate moderate size reversible perfusion defect of the inferior wall suggestive of moderate ischemia. Impression: 1. Pharmacologic (Regadenoson) evaluation 2. Peak pharmacologic ECG with no diagnostic changes secondary to baseline abnormalities. 3. Frequent PVCs pretest and in recovery. 5. Moderate size reversible perfusion defect of the inferior wall suggestive ofinferior and apical ischemia. 6. No gated images available.. This note was generated with Wellframeation software. It may contain incorrectwords, spelling, and punctuation that were not noted in checking the note beforesigning. 11/23/24 1037 Date _ Hubert Chamorro MD CC: Dr. Hubert Chamorro MD; Dr. Erika Faye MD ~ Date Dictated: 11/23/241032 Date Transcribed: 11/23/241032 Security And Compliance Analyst: JODI Dugan [facility] Work Phone: Stress Reporton 11-23-2024 Stress Report [facility] [address] [place] [address] MR#: [id number] Acct: [id number] Name: DENISE GÓMEZ Rep #: [id number] : 1955 69 From: Hubert Chamorro MD Primary Care: Dr. Erika Faye MD Status: REG CLI Referring Dr: Hubert Chamorro MD Sex: M C Stress Test Report Date: 11/23/2024 Procedure: Pharmacologic stress nuclear imaging study Indications: Coronary artery disease Consent: Per the patient Procedure: The patient underwent pharmacologic (Regadenoson 0.4mg ) evaluation with a peak heart rate of 83 beats per minute (54%predicted maximal heart rate) and a peak blood pressure of 138/68 mmHg. The baseline ECG demonstrated sinus rhythm with right bundle branch block with inferolateral ST depressions. The peak pharmacologic ECG was nondiagnostic secondary to baseline abnormalities. Frequent PVCs pretest, during infusion and in recovery. There was no complaint of chest discomfort during pharmacologic infusion or recovery. The patient was injected with 14.4 millicuries of technetium 99m Cardiolite and subsequently rest SPECT Cardiolite nuclear imaging was obtained in the horizontal long, vertical long, and short axis views. The patient underwent pharmacologic (Regadenoson) evaluation. The patient was injected with 44.7 millicuries of technetium 99m Cardiolite and subsequently stress SPECT Cardiolite nuclear imaging was obtained in the horizontal long, vertical long, and short axis views. No gated images available. The examination was stopped secondary to completion of protocol. Rest and stress SPECT Cardiolite nuclear imaging status post realignment, normalization, and attenuation correction demonstrate moderate size reversible perfusion defect of the inferior wall suggestive of moderate ischemia. Impression: 1. Pharmacologic (Regadenoson) evaluation 2. Peak pharmacologic ECG with no diagnostic changes secondary to baseline abnormalities. 3. Frequent PVCs pretest and in recovery. 5. Moderate size reversible perfusion defect of the inferior wall suggestive of inferior and apical ischemia. 6. No gated images available.. This note was generated with Wellframeation software. It may contain incorrect words, spelling, and punctuation that were not noted in checking the note before signing. 11/23/24 1037 Date Hubert Chamorro MD CC: Dr. Hubert Chamorro MD; Dr. Erika Faye MD Date Dictated: 11/23/24 1033 Date Transcribed: 11/23/241032 Security And Compliance Analyst: JODI Signed Normal [facility] Cardiology Visit Reporton Cardiology Visit Report [facility] [address] [place] [address] OFFICE VISIT Date of Service: 10/27/24 MR#: [id number] Acct: [id number] Name: DENISE GÓMEZ Rep #: [id number] : 1955 Provider: Dr. Hubert Chamorro MD Age/Sex: 69/M Location: [facility] Status: Signed HPI HPI History of [...] had percutaneous intervention done, first to the [place] RCA and then to the left main [...] Source NIBP Intake Visit Reasons: ESTABLISH (SELF) Correction Officer Required: No Accompanied by: Self Allergies No [...] well nourished (more content not included)... Normal [facility] Basic Metabolic Profile (BMP )on 07-16-2024 BUN/CRE 19.6 RATIO Normal 10-20 [facility] Comment on above: Performed By: #### L 100.0100, L500.4100, L500.3400, L3300.4490, L501.9520, L500.2500, L501.9985 #### [facility] [address] [place], [place], [id number] CA,Total 9.5 mg/dL Normal 8.5-10.1 [facility] Comment on above: Performed By: #### L 100.0100, L500.4100, L500.3400, L3300.4490, L501.9520, L500.2500, L501.9985 #### [facility] [address] [place], [address] Chloride [Moles/Vol] 107 mmol/L Normal 98-107 [facility] Comment on above: Performed By: #### L 100.0100, L500.4100, L500.3400, L3300.4490, L501.9520, L500.2500, L501.9985 #### [facility] [address] [place], [address] CO2 [Moles/Vol] 25.0 mmol/L Normal 21.0-32.0 [facility] Comment on above: Performed By: #### L 100.0100, L500.4100, L500.3400, L3300.4490, L501.9520, L500.2500, L501.9985 #### [facility] [address] [place], [address] Creatinine [Mass/Vol] 1.02 mg/dL Normal 0.70-1.30 [facility] Comment on above: Result Comment: The validity of the calculated GFR GFRAA in patients over 70 years has not been determined. Clinical correlation is essential. Performed By: #### L 100.0100, L500.4100, L500.3400, L3300.4490, L501.9520, L500.2500, L501.9985 #### [facility] [address] [place], [address] EST GFR - AA 93 mL/min Normal >60 [facility] Comment on above: Result Comment: Afri can Latvian GFR Calc Performed By: #### L 100.0100, L500.4100, L500.3400, L3300.4490, L501.9520, L500.2500, L501.9985 #### [facility] [address] [place], [address] GAP 7 Normal 5-15 [facility] Comment on above: Performed By: #### L 100.0100, L500.4100, L500.3400, L3300.4490, L501.9520, L500.2500, L501.9985 #### [facility] [address] [place], [address] GFR/1.73 sq M.predicted among non-blacks MDRD (S/P/Bld) [Vol rate/Area] 77 mL/min/{1.73_m2} Normal >60 [facility] Comment on above: Result Comment: Non- GFR Calc Performed By: #### L 100.0100, L500.4100, L500.3400, L3300.4490, L501.9520, L500.2500, L501.9985 #### [facility] [address] [place], [address] Glucose [Mass/Vol] 113 mg/dL High 74-[address] [facility] Comment on above: Result Comment: Fast ing Glucose result from 100 to 125 mg/dL suggests IMPAIRED HOMEOSTASIS per A.D.A. criteria. Performed By: #### L 100.0100, L500.4100, L500.3400, L3300.4490, L501.9520, L500.2500, L501.9985 #### [facility] [address] [place], [address] Potassium [Moles/Vol] 4.9 mmol/L Normal 3.5-5.1 [facility] Comment on above: Performed By: #### L 100.0100, L500.4100, L500.3400, L3300.4490, L501.9520, L500.2500, L501.9985 #### [facility] [address] [place], [address] Sodium [Moles/Vol] 139 mmol/L Normal 136-[address] [facility] Comment on above: Performed By: #### L 100.0100, L500.4100, L500.3400, L3300.4490, L501.9520, L500.2500, L501.9985 #### [facility] [address] [place], [place], [id number] Urea nitrogen [Mass/Vol] 20 mg/dL High 7-18 [facility] Comment on above: Performed By: #### L 100.0100, L500.4100, L500.3400, L3300.4490, L501.9520, L500.2500, L501.9985 #### [facility] [address] [place], [place], [id number] Blood urea nitrogen (BUN)/cr eatinine ratioOrdered By: Erika Faye on 07-16-2024 Urea nitrogen/Creatinine [Mass ratio] 19.6 mg/mg 10-20 [facility] Carbon dioxide measurementOr dered By: Erika Faye on 07-16-2024 CO2 [Moles/Vol] 25.0 mmol/L 21.0-32.0 [facility] Chloride measurementOrdered By: Erika Faye on 07-16-2024 Chloride [Moles/Vol] 107 mmol/L 98-107 [facility] Glomerular filtration rate ( GFR) estimationOrdered By: Erika Faye on 07-16-2024 GFR/1.73 sq M.predicted among non-blacks MDRD (S/P/Bld) [Vol rate/Area] 77 mL/min/{1.73_m2} >60 [facility] Comment on above: Non- GFR Calc Glucose measurementOrdered B y: Erika Faye on 07-16-2024 Glucose [Mass/Vol] 113 mg/dL High 74-[address] [facility] Comment on above: Fasting Glucose resu lt from 100 to 125 mg/dL suggests IMPAIRED HOMEOSTASIS per A.D.A. criteria. Potassium measurementOrdered By: Erika Faye on 07-16-2024 Potassium [Moles/Vol] 4.9 mmol/L 3.5-5.1 [facility] Serum anion gap measurementO rdered By: Erika Faye on 07-16-2024 Anion gap [Moles/Vol] 7 mmol/L 5-15 [facility] Serum or plasma calcium daysi urement (mass/volume)Ordered By: Erika Faye on 07-16-2024 Calcium [Mass/Vol] 9.5 mg/dL 8.5-10.[address] [facility] Serum or plasma creatinine m easurement (mass/volume)Ordered By: Erika Faye on 07-16-2024 Creatinine [Mass/Vol] 1.02 mg/dL 0.70-1.30 [facility] Comment on above: The validity of the calculated GFR & GFRAA in patients over 70 years has not been determined. Clinical correlation is essential. Serum or plasma urea nitroge n measurement (mass/volume)Ordered By: Erika Faye on 07-16-2024 Urea nitrogen [Mass/Vol] 20 mg/dL High 7-18 [facility] Sodium levelOrdered By: Chacha Faye on 07-16-2024 Sodium [Moles/Vol] 139 mmol/L 136-[address] [facility] LDL, Directon 07-03-2024 Cholesterol in LDL [Mass/Vol] 58 mg/dL Normal 0-99 [facility] Comment on above: Result Comment: Perf ormed at: - [facility] [address] [id number] External Auditor: Andrew Escobar PhD, Phone: [phone] Performed By: #### L 100.0100, L500.4100, L500.3400, L3300.4490, L501.9520, L500.2500, L501.9985 #### [facility] [address] [place], [place], [id number] COMMENT TNP Normal . [facility] Comment on above: Performed By: #### L 100.0100, L500.4100, L500.3400, L3300.4490, L501.9520, L500.2500, L501.9985 #### [facility] [address] [place], [place], [id number] Absolute lymphocyte countOrd ered By: Erika Faye on 07-02-2024 Lymphocytes Auto (Unsp spec) [#/Vol] 1.54 10*3/uL 0.83-4.51 [facility] Absolute neutrophil countOrd ered By: Erikahenrietta Faye on 07-02-2024 Neutrophils (Bld) [#/Vol] 4.5 10*3/uL 2.0-7.7 [facility] Automated lymphocyte count a s percentage of total leukocytesOrdered By: Erika Faye on 07-02-2024 Lymphocytes/100 WBC Auto (Unsp spec) 21.9 % 19-41 [facility] Basic Metabolic Profile (BMP )on 07-02-2024 BUN/CRE 19.1 RATIO Normal 10-20 [facility] Comment on above: Performed By: #### L 100.0100, L500.4100, L500.3400, L3300.4490, L501.9520, L500.2500, L501.9985 #### [facility] [address] [place], [address] CA,Total 9.4 mg/dL Normal 8.5-10.1 [facility] Comment on above: Performed By: #### L 100.0100, L500.4100, L500.3400, L3300.4490, L501.9520, L500.2500, L501.9985 #### [facility] [address] [place], [address] Chloride [Moles/Vol] 111 mmol/L High 98-107 [facility] Comment on above: Performed By: #### L 100.0100, L500.4100, L500.3400, L3300.4490, L501.9520, L500.2500, L501.9985 #### [facility] [address] [place], [address] CO2 [Moles/Vol] 25.0 mmol/L Normal 21.0-32.0 [facility] Comment on above: Performed By: #### L 100.0100, L500.4100, L500.3400, L3300.4490, L501.9520, L500.2500, L501.9985 #### [facility] [address] [place], [place], [id number] Creatinine [Mass/Vol] 1.10 mg/dL Normal 0.70-1.30 [facility] Comment on above: Result Comment: The validity of the calculated GFR GFRAA in patients over 70 years has not been determined. Clinical correlation is essential. Performed By: #### L 100.0100, L500.4100, L500.3400, L3300.4490, L501.9520, L500.2500, L501.9985 #### [facility] [address] [place], [place], [id number] (911) EST GFR - AA 86 mL/min Normal >60 [facility] Comment on above: Result Comment: Afri can Latvian GFR Calc Performed By: #### L 100.0100, L500.4100, L500.3400, L3300.4490, L501.9520, L500.2500, L501.9985 #### [facility] [address] [place], [address] GAP 5 Normal 5-15 [facility] Comment on above: Performed By: #### L 100.0100, L500.4100, L500.3400, L3300.4490, L501.9520, L500.2500, L501.9985 #### [facility] [address] [place], [place], [id number] GFR/1.73 sq M.predicted among non-blacks MDRD (S/P/Bld) [Vol rate/Area] 71 mL/min/{1.73_m2} Normal >60 [facility] Comment on above: Result Comment: Non- GFR Calc Performed By: #### L 100.0100, L500.4100, L500.3400, L3300.4490, L501.9520, L500.2500, L501.9985 #### [facility] [address] [place], [address] Glucose [Mass/Vol] 99 mg/dL Normal 74-[address] [facility] Comment on above: Performed By: #### L 100.0100, L500.4100, L500.3400, L3300.4490, L501.9520, L500.2500, L501.9985 #### [facility] [address] [place], [address] Potassium [Moles/Vol] 5.8 mmol/L High 3.5-5.1 [facility] Comment on above: Performed By: #### L 100.0100, L500.4100, L500.3400, L3300.4490, L501.9520, L500.2500, L501.9985 #### [facility] [address] [place], [address] Sodium [Moles/Vol] 141 mmol/L Normal 136-[address] [facility] Comment on above: Performed By: #### L 100.0100, L500.4100, L500.3400, L3300.4490, L501.9520, L500.2500, L501.9985 #### [facility] [address] [place], [address] Urea nitrogen [Mass/Vol] 21 mg/dL High 7-18 [facility] Comment on above: Performed By: #### L 100.0100, L500.4100, L500.3400, L3300.4490, L501.9520, L500.2500, L501.9985 #### [facility] [address] [place], [address] Basophil percentageOrdered B y: Erika Faye on 07-02-2024 Basophils/100 WBC (Bld) 0.4 % 0-[address] [facility] Bilirubin directOrdered By: Erika Faye on 07-02-2024 Bilirubin.direct [Mass/Vol] 0.20 mg/dL 0.00-0.30 [facility] Bilirubin, totalOrdered By: Erika Faye on 07-02-2024 Bilirubin [Mass/Vol] 0.70 mg/dL 0.20-1.00 [facility] Comment on above: For patients on eltr ombopag therapy, use of Dimension [place] TBIL is not recommended. Blood urea nitrogen (BUN)/cr eatinine ratioOrdered By: Erika Faye on 07-02-2024 Urea nitrogen/Creatinine [Mass ratio] 19.1 mg/mg 10- [facility] CBC W/Diff, Automatedon 06-16 Absolute Lymph 1.54 X10 3/uL Normal 0.83-4.51 [facility] Comment on above: Performed By: #### L 100.0100, L500.4100, L500.3400, L3300.4490, L501.9520, L500.2500, L501.9985 #### [facility] [address] [place], [address] Absolute Neut 4.5 X10 3/uL Normal 2.0-7.7 [facility] Comment on above: Performed By: #### L 100.0100, L500.4100, L500.3400, L3300.4490, L501.9520, L500.2500, L501.9985 #### [facility] [address] [place], [address] Basophils/100 WBC (Bld) 0.4 % Normal 0-[address] [facility] Comment on above: Performed By: #### L 100.0100, L500.4100, L500.3400, L3300.4490, L501.9520, L500.2500, L501.9985 #### [facility] [address] [place], [address] Eosinophils/100 WBC (Bld) 2.6 % Normal 0-5 [facility] Comment on above: Performed By: #### L 100.0100, L500.4100, L500.3400, L3300.4490, L501.9520, L500.2500, L501.9985 #### [facility] [address] [place], [address] Erythrocyte distribution width (RBC) [Ratio] 14.0 % Normal 11.6-14.6 [facility] Comment on above: Performed By: #### L 100.0100, L500.4100, L500.3400, L3300.4490, L501.9520, L500.2500, L501.9985 #### [facility] [address] [place], [address] Hematocrit (Bld) [Volume fraction] 44.9 % Normal 40-54 [facility] Comment on above: Performed By: #### L 100.0100, L500.4100, L500.3400, L3300.4490, L501.9520, L500.2500, L501.9985 #### [facility] [address] [place], [address] Hemoglobin (Bld) [Mass/Vol] 14.3 g/dL Normal 13.0-16.5 [facility] Comment on above: Performed By: #### L 100.0100, L500.4100, L500.3400, L3300.4490, L501.9520, L500.2500, L501.9985 #### [facility] [address] [place], [address] IG% 0.300 Normal 0.0-0.9 [facility] Comment on above: Result Comment: IG% - Immature Granulocytes (promyelocytes, myelocytes and metamyelocytes) > 1% indicates that a LEFT SHIFT is Present. Performed By: #### L 100.0100, L500.4100, L500.3400, L3300.4490, L501.9520, L500.2500, L501.9985 #### [facility] [address] [place], [address] Lymphocytes/100 WBC (Bld) 21.9 % Normal 19-41 [facility] Comment on above: Performed By: #### L 100.0100, L500.4100, L500.3400, L3300.4490, L501.9520, L500.2500, L501.9985 #### [facility] [address] [place], [address] MCH (RBC) [Entitic mass] 33.2 pg High 27.0-32.0 [facility] Comment on above: Performed By: #### L 100.0100, L500.4100, L500.3400, L3300.4490, L501.9520, L500.2500, L501.9985 #### [facility] [address] [place], [address] MCHC (RBC) [Mass/Vol] 31.8 g/dL Low 32-36 [facility] Comment on above: Performed By: #### L 100.0100, L500.4100, L500.3400, L3300.4490, L501.9520, L500.2500, L501.9985 #### [facility] [address] [place], [address] MCV (RBC) [Entitic vol] 104.2 fL High 80-[address] [facility] Comment on above: Performed By: #### L 100.0100, L500.4100, L500.3400, L3300.4490, L501.9520, L500.2500, L501.9985 #### [facility] [address] [place], [address] Monocytes/100 WBC (Bld) 10.4 % High 0-[address] [facility] Comment on above: Performed By: #### L 100.0100, L500.4100, L500.3400, L3300.4490, L501.9520, L500.2500, L501.9985 #### [facility] [address] [place], [address] Neutrophils/100 WBC (Bld) 64.4 % Normal 47-70 [facility] Comment on above: Performed By: #### L 100.0100, L500.4100, L500.3400, L3300.4490, L501.9520, L500.2500, L501.9985 #### [facility] [address] [place], [address] Nucleated RBC (Bld) [#/Vol] 0 10*3/uL Normal 0-5 [facility] Comment on above: Performed By: #### L 100.0100, L500.4100, L500.3400, L3300.4490, L501.9520, L500.2500, L501.9985 #### [facility] [address] [place], [address] Platelet mean volume (Bld) [Entitic vol] 11.8 fL Normal 6.2-12.0 [facility] Comment on above: Performed By: #### L 100.0100, L500.4100, L500.3400, L3300.4490, L501.9520, L500.2500, L501.9985 #### [facility] [address] [place], [address] Platelets (Bld) [#/Vol] 226 10*3/uL Normal 150-450 [facility] Comment on above: Performed By: #### L 100.0100, L500.4100, L500.3400, L3300.4490, L501.9520, L500.2500, L501.9985 #### [facility] [address] [place], [address] RBC (Bld) [#/Vol] 4.31 10*6/uL Low 4.6-6.2 [facility] Comment on above: Performed By: #### L 100.0100, L500.4100, L500.3400, L3300.4490, L501.9520, L500.2500, L501.9985 #### [facility] [address] [place], [address] RDW SD 54.7 fl High 35.1-43.9 [facility] Comment on above: Performed By: #### L 100.0100, L500.4100, L500.3400, L3300.4490, L501.9520, L500.2500, L501.9985 #### [facility] [address] [place], [address] WBC (Bld) [#/Vol] 7.0 10*3/uL Normal 4.4-11.[address] [facility] Comment on above: Performed By: #### L 100.0100, L500.4100, L500.3400, L3300.4490, L501.9520, L500.2500, L501.9985 #### [facility] [address] [place], [address] Carbon dioxide measurementOr dered By: Erika Faye on 07-02-2024 CO2 [Moles/Vol] 25.0 mmol/L 21.0-32.0 [facility] Chloride measurementOrdered By: Erika Faye on 07-02-2024 Chloride [Moles/Vol] 111 mmol/L High 98-107 [facility] Cholesterol in LDL Direct as say [Mass/Vol]Ordered By: Erika Faye on 07-02-2024 Cholesterol in LDL [Mass/Vol] 58 mg/dL 0-99 [facility] Comment on above: Performed at: [address] [id number] Director: Andrew Escobar PhD, Phone: [phone] Eosinophil percentageOrdered By: Erika Faye on 07-02-2024 Eosinophils/100 WBC (Bld) 2.6 % 0-5 [facility] Erythrocyte distribution wid th ratioOrdered By: Erika Faye on 07-02-2024 Erythrocyte distribution width (RBC) [Ratio] 14.0 % 11.6-14.6 [facility] Erythrocyte distribution wid th standard deviationOrdered By: Erika Faye on 07-02-2024 Erythrocyte distribution width (RBC) [Ratio] 54.7 fl High 35.1-43.9 [facility] Glomerular filtration rate ( GFR) estimationOrdered By: Erika Faye on 07-02-2024 GFR/1.73 sq M.predicted among non-blacks MDRD (S/P/Bld) [Vol rate/Area] 71 mL/min/{1.73_m2} >60 [facility] Comment on above: Non- GFR Calc Glucose measurementOrdered B y: Erika Faye on 07-02-2024 Glucose [Mass/Vol] 99 mg/dL 74-[address] [facility] Hematocrit Auto (Bld) [Volum e fraction]Ordered By: Erika Faye on 07-02-2024 Hematocrit (Bld) [Volume fraction] 44.9 % 40-54 [facility] Hemoglobin A1con 07-02-2024 HbA1c (Bld) [Mass fraction] 6.1 % High 3.8-5.6 [facility] Comment on above: Result Comment: Norm al < 5.7 % Prediabetic 5.7 - 6.4 % Diabetic >or= 6.5 % Please note range changes. Performed By: #### L 100.0100, L500.4100, L500.3400, L3300.4490, L501.9520, L500.2500, L501.9985 #### [facility] [place], [address] Hemoglobin A1c percentageOrd ered By: Erika Faye on 07-02-2024 HbA1c (Bld) [Mass fraction] 6.1 % High 3.8-5.6 [facility] Comment on above: Normal < 5.7 % Predi abetic 5.7 - 6.4 % Diabetic >or= 6.5 % Please note range changes. Hemoglobin measurementOrdere d By: Erika Faye on 07-02-2024 Hemoglobin (Bld) [Mass/Vol] 14.3 g/dL 13.0-16.5 [facility] High density lipoprotein (HD L) measurementOrdered By: Erika Faye on 07-02-2024 Cholesterol in HDL [Mass/Vol] 67 mg/dL >40 [facility] Comment on above: The drugs N-Acetylcy steine and Metamizole may falsely depress this assay. Reference Range HDL <40 mg/dL Low HDL Cholesterol HDL >or= 60 mg/dL High HDL Cholesterol Immature granulocytes/100 WB C Auto (Bld)Ordered By: Erika Faye on 07-02-2024 Immature granulocytes/100 WBC (Bld) 0.300 % 0.0-0.9 [facility] Comment on above: IG% - Immature Granu locytes (promyelocytes, myelocytes and metamyelocytes) > 1% indicates that a LEFT SHIFT is Present. Laboratory - Chemistry and C hemistry - challengeOrdered By: Erika Faye on 07-02-2024 AST [Catalytic activity/Vol] 15 U/L 15-37 [facility] - Miscellaneous t estsOrdered By: Erika Faye on 07-02-2024 Service comment (Unsp spec) [Interp] TNP [facility] Comment on above: Test not performed Lipid Profileon 07-02-2024 Cholesterol [Mass/Vol] 124 mg/dL Normal 200 [facility] Comment on above: Result Comment: <200 mg/dL Desirable 200-240 mg/dL Borderline >240 mg/dL High Risk Performed By: #### L 100.0100, L500.4100, L500.3400, L3300.4490, L501.9520, L500.2500, L501.9985 #### [facility] [address] [place], [address] Cholesterol in HDL [Mass/Vol] 67 mg/dL Normal [facility] Comment on above: Result Comment: The drugs N-Acetylcysteine and Metamizole may falsely depress this assay. Reference Range HDL <40 mg/dL Low HDL Cholesterol HDL >or= 60 mg/dL High HDL Cholesterol Performed By: #### L 100.0100, L500.4100, L500.3400, L3300.4490, L501.9520, L500.2500, L501.9985 #### [facility] [address] [place], [address] Cholesterol in LDL [Mass/Vol] 44 mg/dL Normal 0-130 [facility] Comment on above: Performed By: #### L 100.0100, L500.4100, L500.3400, L3300.4490, L501.9520, L500.2500, L501.9985 #### [facility] [address] [place], [address] Cholesterol in VLDL [Mass/Vol] 13 mg/dL Normal 5-40 [facility] Comment on above: Performed By: #### L 100.0100, L500.4100, L500.3400, L3300.4490, L501.9520, L500.2500, L501.9985 #### [facility] [address] [place], [address] Triglyceride [Mass/Vol] 65 mg/dL Normal [facility] Comment on above: Result Comment: The drugs N-Acetylcysteine and Metamizole may falsely depress this assay. Serum Triglycerides Reference Interval Normal <150 mg/dL Borderline high 150 - 199 mg/dL High 200 - 499 mg/dL Very High > or = 500 mg/dL Performed By: #### L 100.0100, L500.4100, L500.3400, L3300.4490, L501.9520, L500.2500, L501.9985 #### [facility] [address] [place], [address] Liver Profileon 07-02-2024 Albumin [Mass/Vol] 3.4 g/dL Normal 3.2-5.[address] [facility] Comment on above: Performed By: #### L 100.0100, L500.4100, L500.3400, L3300.4490, L501.9520, L500.2500, L501.9985 #### [facility] [address] [place], [address] ALK P 88 U/L Normal 45-117 [facility] Comment on above: Performed By: #### L 100.0100, L500.4100, L500.3400, L3300.4490, L501.9520, L500.2500, L501.9985 #### [facility] [address] [place], [address] ALT [Catalytic activity/Vol] 23 U/L Normal 16-61 [facility] Comment on above: Performed By: #### L 100.0100, L500.4100, L500.3400, L3300.4490, L501.9520, L500.2500, L501.9985 #### [facility] [address] [place], [address] AST [Catalytic activity/Vol] 15 U/L Normal 15-37 [facility] Comment on above: Performed By: #### L 100.0100, L500.4100, L500.3400, L3300.4490, L501.9520, L500.2500, L501.9985 #### [facility] [address] [place], [address] Bilirubin [Mass/Vol] 0.70 mg/dL Normal 0.20-1.00 [facility] Comment on above: Result Comment: For patients on eltrombopag therapy, use of Dimension [place] TBIL is not recommended. Performed By: #### L 100.0100, L500.4100, L500.3400, L3300.4490, L501.9520, L500.2500, L501.9985 #### [facility] [address] [place], [address] Bilirubin.direct [Mass/Vol] 0.20 mg/dL Normal 0.00-0.30 [facility] Comment on above: Performed By: #### L 100.0100, L500.4100, L500.3400, L3300.4490, L501.9520, L500.2500, L501.9985 #### [facility] [address] [place], [address] Globulin (S) [Mass/Vol] 4.1 g/dL Normal 2.2-4.[address] [facility] Comment on above: Performed By: #### L 100.0100, L500.4100, L500.3400, L3300.4490, L501.9520, L500.2500, L501.9985 #### [facility] [address] [place], [address] T PROT 7.5 g/dL Normal 6.4-8.2 [facility] Comment on above: Performed By: #### L 100.0100, L500.4100, L500.3400, L3300.4490, L501.9520, L500.2500, L501.9985 #### [facility] [address] [place], [address] Low density lipoprotein (LDL ) cholesterol measurementOrdered By: Erika Faye on 07-02-2024 Cholesterol in LDL [Mass/Vol] 44 mg/dL 0-130 [facility] MCV (mean corpuscular volume ) determinationOrdered By: Erika Faye on 07-02-2024 MCV (RBC) [Entitic vol] 104.2 fL High 80-[address] [facility] Mean corpuscular hemoglobin (MCH) determinationOrdered By: Erika Faye on 07-02-2024 MCH (RBC) [Entitic mass] 33.2 pg High 27.0-32.0 [facility] Mean corpuscular hemoglobin concentration (MCHC) determinationOrdered By: Erika Faye on 07-02-2024 MCHC (RBC) [Mass/Vol] 31.8 g/dL Low 32-36 [facility] Mean platelet volume determi nationOrdered By: Erika Faye on 07-02-2024 Platelet mean volume (Bld) [Entitic vol] 11.8 fL 6.2-12.0 [facility] Monocyte percentageOrdered B y: Erika Faye on 07-02-2024 Monocytes/100 WBC (Bld) 10.4 % High 0-[address] [facility] Neutrophil percentageOrdered By: Erika Faye on 07-02-2024 Neutrophils/100 WBC (Bld) 64.4 % 47-70 [facility] Nucleated red blood cell per centageOrdered By: Erika Faye on 07-02-2024 Nucleated RBC/100 WBC (Bld) [Ratio] 0 % 0-5 [facility] Platelet countOrdered By: Hyacinth Faye on 07-02-2024 Platelets (Bld) [#/Vol] 226 10*3/uL 150-450 [facility] Potassium measurementOrdered By: Erika Faye on 07-02-2024 Potassium [Moles/Vol] 5.8 mmol/L High 3.5-5.1 [facility] RBC Auto (Bld) [#/Vol]Ordere d By: Erika Faye on 07-02-2024 RBC (Bld) [#/Vol] 4.31 10*6/uL Low 4.6-6.2 [facility] Serum anion gap measurementO rdered By: Erika Faye on 07-02-2024 Anion gap [Moles/Vol] 5 mmol/L 5-15 [facility] Serum globulin measurementOr dered By: Erika Faye on 07-02-2024 Globulin (S) [Mass/Vol] 4.1 g/dL 2.2-4.[address] [facility] Serum or plasma alanine mcbride otransferase (ALT) measurementOrdered By: Erika Faye on 07-02-2024 ALT [Catalytic activity/Vol] 23 U/L 16-61 [facility] Serum or plasma albumin daysi urement (mass/volume)Ordered By: Erika Faye on 07-02-2024 Albumin [Mass/Vol] 3.4 g/dL 3.2-5.[address] [facility] Serum or plasma alkaline ralph sphatase measurementOrdered By: Erika Faye on 07-02-2024 ALP [Catalytic activity/Vol] 88 U/L 45-117 [facility] Serum or plasma calcium daysi urement (mass/volume)Ordered By: Erika Faye on 07-02-2024 Calcium [Mass/Vol] 9.4 mg/dL 8.5-10.[address] [facility] Serum or plasma cholesterol measurement (mass/volume)Ordered By: Erika Faye on 07-02-2024 Cholesterol [Mass/Vol] 124 mg/dL <200 [facility] Comment on above: <200 mg/dL Desirable 200-240 mg/dL Borderline >240 mg/dL High Risk Serum or plasma creatinine m easurement (mass/volume)Ordered By: Erika Faye on 07-02-2024 Creatinine [Mass/Vol] 1.10 mg/dL 0.70-1.30 [facility] Comment on above: The validity of the calculated GFR & GFRAA in patients over 70 years has not been determined. Clinical correlation is essential. Serum or plasma thyroid stim ulating hormone (TSH) measurement (units/volume)Ordered By: Erika Faye on 07-02-2024 TSH Qn 1.680 uIU/mL 0.358-3.740 [facility] Serum or plasma urea nitroge n measurement (mass/volume)Ordered By: Erika Faye on 07-02-2024 Urea nitrogen [Mass/Vol] 21 mg/dL High 7-18 [facility] Sodium levelOrdered By: Chacha Faye on 07-02-2024 Sodium [Moles/Vol] 141 mmol/L 136-[address] [facility] Thyroid Stim Hormone (TSH)on 07-02-2024 TSH 1.680 uIU/mL Normal 0.358-3.740 [facility] Comment on above: Performed By: #### L 100.0100, L500.4100, L500.3400, L3300.4490, L501.9520, L500.2500, L501.9985 #### [facility] [address] [place], [place], [id number] Total proteinOrdered By: Fred Faye on 07-02-2024 Protein [Mass/Vol] 7.5 g/dL 6.4-8.[address] [facility] Triglycerides measurementOrd ered By: Erika Faye on 07-02-2024 Triglyceride [Mass/Vol] 65 mg/dL <199 [facility] Comment on above: The drugs N-Acetylcy steine and Metamizole may falsely depress this assay.Serum Triglycerides Reference Interval Normal <150 mg/dL Borderline high 150 - 199 mg/dL High 200 - 499 mg/dL Very High > or = 500 mg/dL Very low density lipoprotein (VLDL) cholesterol measurementOrdered By: Erika Faye on 07-02-2024 Very low density lipoprotein (VLDL) cholesterol measurement 13 mg/dL 5-40 [facility] White blood cell (WBC) count Ordered By: Erika Faye on 07-02-2024 WBC (Bld) [#/Vol] 7.0 10*3/uL 4.4-11.[address] [facility] LDL, Directon 12-31-2023 Cholesterol in LDL [Mass/Vol] 64 mg/dL Normal 0-99 [facility] Comment on above: Result Comment: Perf ormed at: [facility] [address] [id number] External Auditor: Andrew Escobar PhD, Phone: [phone] Performed By: #### L 100.0100, L500.4100, L500.3400, L3300.4490, L501.9520, L500.2500, L501.9985 #### [facility] [address] [place], [place], [id number] COMMENT TNP Normal . [facility] Comment on above: Performed By: #### L 100.0100, L500.4100, L500.3400, L3300.4490, L501.9520, L500.2500, L501.9985 #### [facility] [address] [place], [place], [id number] CBC W/Diff, Automatedon - Absolute Lymph 1.16 X10 3/uL Normal 0.83-4.51 [facility] Comment on above: Performed By: #### L 501.9520, L500.4100, L500.3400, L100.0100, L3300.4490 #### [facility] [address] [place], [address] Absolute Neut 3.9 X10 3/uL Normal 2.0-7.7 [facility] Comment on above: Performed By: #### L 501.9520, L500.4100, L500.3400, L100.0100, L3300.4490 #### [facility] [address] [place], [address] Basophils/100 WBC (Bld) 0.5 % Normal 0-[address] [facility] Comment on above: Performed By: #### L 501.9520, L500.4100, L500.3400, L100.0100, L3300.4490 #### [facility] [address] [place], [address] Eosinophils/100 WBC (Bld) 4.3 % Normal 0-5 [facility] Comment on above: Performed By: #### L 501.9520, L500.4100, L500.3400, L100.0100, L3300.4490 #### [facility] [address] [place], [address] Erythrocyte distribution width (RBC) [Ratio] 13.9 % Normal 11.6-14.6 [facility] Comment on above: Performed By: #### L 501.9520, L500.4100, L500.3400, L100.0100, L3300.4490 #### [facility] [address] [place], [address] Hematocrit (Bld) [Volume fraction] 44.9 % Normal 40-54 [facility] Comment on above: Performed By: #### L 501.9520, L500.4100, L500.3400, L100.0100, L3300.4490 #### [facility] [address] [place], [address] Hemoglobin (Bld) [Mass/Vol] 15.4 g/dL Normal 13.0-16.5 [facility] Comment on above: Performed By: #### L 501.9520, L500.4100, L500.3400, L100.0100, L3300.4490 #### [facility] [address] [place], [address] IG% 0.200 Normal 0.0-0.9 [facility] Comment on above: Result Comment: IG% - Immature Granulocytes (promyelocytes, myelocytes and metamyelocytes) > 1% indicates that a LEFT SHIFT is Present. Performed By: #### L 501.9520, L500.4100, L500.3400, L100.0100, L3300.4490 #### [facility] [address] [place], [address] Lymphocytes/100 WBC (Bld) 19.1 % Normal 19-41 [facility] Comment on above: Performed By: #### L 501.9520, L500.4100, L500.3400, L100.0100, L3300.4490 #### [facility] [address] [place], [address] MCH (RBC) [Entitic mass] 34.7 pg High 27.0-32.0 [facility] Comment on above: Performed By: #### L 501.9520, L500.4100, L500.3400, L100.0100, L3300.4490 #### [facility] [address] [place], [address] MCHC (RBC) [Mass/Vol] 34.3 g/dL Normal 32-36 [facility] Comment on above: Performed By: #### L 501.9520, L500.4100, L500.3400, L100.0100, L3300.4490 #### [facility] [facility] [address] [place], [address] MCV (RBC) [Entitic vol] 101.1 fL High 80-[address] [facility] Comment on above: Performed By: #### L 501.9520, L500.4100, L500.3400, L100.0100, L3300.4490 #### [facility] [address] [place], [address] Monocytes/100 WBC (Bld) 11.8 % High 0-[address] [facility] Comment on above: Performed By: #### L 501.9520, L500.4100, L500.3400, L100.0100, L3300.4490 #### [facility] [address] [place], [address] Neutrophils/100 WBC (Bld) 64.1 % Normal 47-70 [facility] Comment on above: Performed By: #### L 501.9520, L500.4100, L500.3400, L100.0100, L3300.4490 #### [facility] [address] [place], [address] Nucleated RBC (Bld) [#/Vol] 0 10*3/uL Normal 0-5 [facility] Comment on above: Performed By: #### L 501.9520, L500.4100, L500.3400, L100.0100, L3300.4490 #### [facility] [address] [place], [address] Platelet mean volume (Bld) [Entitic vol] 10.7 fL Normal 6.2-12.0 [facility] Comment on above: Performed By: #### L 501.9520, L500.4100, L500.3400, L100.0100, L3300.4490 #### [facility] [address] [place], [address] Platelets (Bld) [#/Vol] 252 10*3/uL Normal 150-450 [facility] Comment on above: Performed By: #### L 501.9520, L500.4100, L500.3400, L100.0100, L3300.4490 #### [facility] [address] [place], [address] RBC (Bld) [#/Vol] 4.44 10*6/uL Low 4.6-6.2 [facility] Comment on above: Performed By: #### L 501.9520, L500.4100, L500.3400, L100.0100, L3300.4490 #### [facility] [address] [place], [address] RDW SD 52.2 fl High 35.1-43.9 [facility] Comment on above: Performed By: #### L 501.9520, L500.4100, L500.3400, L100.0100, L3300.4490 #### [facility] [address] [place], [address] WBC (Bld) [#/Vol] 6.1 10*3/uL Normal 4.4-11.[address] [facility] Comment on above: Performed By: #### L 501.9520, L500.4100, L500.3400, L100.0100, L3300.4490 #### [facility] [address] [place], [address] Lipid Profileon 12-30-2023 Cholesterol [Mass/Vol] 145 mg/dL Normal 200 [facility] Comment on above: Result Comment: <200 mg/dL Desirable 200-240 mg/dL Borderline >240 mg/dL High Risk Performed By: #### L 100.0100, L500.4100, L500.3400, L3300.4490, L501.9520, L500.2500, L501.9985 #### [facility] [address] [place], [address] Cholesterol in HDL [Mass/Vol] 85 mg/dL Normal [facility] Comment on above: Result Comment: The drugs N-Acetylcysteine and Metamizole may falsely depress this assay. Reference Range HDL <40 mg/dL Low HDL Cholesterol HDL >or= 60 mg/dL High HDL Cholesterol Performed By: #### L 100.0100, L500.4100, L500.3400, L3300.4490, L501.9520, L500.2500, L501.9985 #### [facility] [address] [place], [address] Cholesterol in LDL [Mass/Vol] 44 mg/dL Normal 0-130 [facility] Comment on above: Performed By: #### L 100.0100, L500.4100, L500.3400, L3300.4490, L501.9520, L500.2500, L501.9985 #### [facility] [address] [place], [address] Cholesterol in VLDL [Mass/Vol] 16 mg/dL Normal 5-40 [facility] Comment on above: Performed By: #### L 100.0100, L500.4100, L500.3400, L3300.4490, L501.9520, L500.2500, L501.9985 #### [facility] [address] [place], [address] Triglyceride [Mass/Vol] 79 mg/dL Normal [facility] Comment on above: Result Comment: The drugs N-Acetylcysteine and Metamizole may falsely depress this assay. Serum Triglycerides Reference Interval Normal <150 mg/dL Borderline high 150 - 199 mg/dL High 200 - 499 mg/dL Very High > or = 500 mg/dL Performed By: #### L 100.0100, L500.4100, L500.3400, L3300.4490, L501.9520, L500.2500, L501.9985 #### [facility] [address] [place], [address] Liver Profileon 12-30-2023 Albumin [Mass/Vol] 3.5 g/dL Normal 3.2-5.[address] [facility] Comment on above: Performed By: #### L 100.0100, L500.4100, L500.3400, L3300.4490, L501.9520, L500.2500, L501.9985 #### [facility] [address] [place], [address] ALK P 89 U/L Normal 45-117 [facility] Comment on above: Performed By: #### L 100.0100, L500.4100, L500.3400, L3300.4490, L501.9520, L500.2500, L501.9985 #### [facility] [address] [place], [address] ALT [Catalytic activity/Vol] 27 U/L Normal 16-61 [facility] Comment on above: Performed By: #### L 100.0100, L500.4100, L500.3400, L3300.4490, L501.9520, L500.2500, L501.9985 #### [facility] [address] [place], [address] AST [Catalytic activity/Vol] 16 U/L Normal 15-37 [facility] Comment on above: Performed By: #### L 100.0100, L500.4100, L500.3400, L3300.4490, L501.9520, L500.2500, L501.9985 #### [facility] [address] [place], [address] Bilirubin [Mass/Vol] 0.80 mg/dL Normal 0.20-1.00 [facility] Comment on above: Result Comment: For patients on eltrombopag therapy, use of Dimension [place] TBIL is not recommended. Performed By: #### L 100.0100, L500.4100, L500.3400, L3300.4490, L501.9520, L500.2500, L501.9985 #### [facility] [address] [place], [address] Bilirubin.direct [Mass/Vol] 0.21 mg/dL Normal 0.00-0.30 [facility] Comment on above: Performed By: #### L 100.0100, L500.4100, L500.3400, L3300.4490, L501.9520, L500.2500, L501.9985 #### [facility] [address] [place], [address] Globulin (S) [Mass/Vol] 4.0 g/dL Normal 2.2-4.[address] [facility] Comment on above: Performed By: #### L 100.0100, L500.4100, L500.3400, L3300.4490, L501.9520, L500.2500, L501.9985 #### [facility] [address] [place], [address] T PROT 7.5 g/dL Normal 6.4-8.2 [facility] Comment on above: Performed By: #### L 100.0100, L500.4100, L500.3400, L3300.4490, L501.9520, L500.2500, L501.9985 #### [facility] [address] [place], [address] Thyroid Stim Hormone (TSH)on 12-30-2023 TSH 2.86 uIU/mL Normal 0.358-3.74 [facility] Comment on above: Performed By: #### L 100.0100, L500.4100, L500.3400, L3300.4490, L501.9520, L500.2500, L501.9985 #### [facility] [address] [place], [address] Gram stain for investigation of transfusion reactionOrdered By: Alden Lopez on 10-09-2023 Microscopic observation Gram stain Nom (Unsp spec) [facility] No Panel InformationOrdered By: Alden Lopez on 10-09-2023 Nasopharyngeal Culture Acinetobacter Lwoffi [facility] .Auto Diffon 01-06-2018 Basophils Auto #/vol (Bld) 0.00 10 3/mcL Normal 0.00-0.19 [facility] ([place]) Comment on above: Performed By: #### C BC, ADIFF, ANEU, APTT, PRO ####[place] [address]#### TROP, BMP, GFR ####[address] [address] Basophils/100 WBC Auto (Bld) 0.5 % Normal 0.0-2.5 [facility] ([place]) Comment on above: Performed By: #### C BC, ADIFF, ANEU, APTT, PRO ####[place] [address]#### TROP, BMP, GFR ####[address] [address] Eosinophils 0.30 10 3/mcL Normal 0.00-0.40 [facility] ([place]) Comment on above: Performed By: #### C BC, ADIFF, ANEU, APTT, PRO ####[place] [address]#### TROP, BMP, GFR ####[address] [address] Eosinophils/100 leukocytes 4.4 % Normal 0.0-7.0 [facility] ([place]) Comment on above: Performed By: #### C BC, ADIFF, ANEU, APTT, PRO ####[place] [address]#### TROP, BMP, GFR ####[address] [address] Lymphocytes 2.40 10 3/mcL Normal 0.77-3.85 [facility] ([place]) Comment on above: Performed By: #### C BC, ADIFF, ANEU, APTT, PRO ####[place] [address]#### TROP, BMP, GFR ####[address] [address] Lymphocytes/100 leukocytes 33.0 % Normal 10.0-50.0 [facility] ([place]) Comment on above: Performed By: #### C BC, ADIFF, ANEU, APTT, PRO ####[place] [address]#### TROP, BMP, GFR ####[address] [address] Monocytes 0.80 10 3/mcL Normal 0.15-1.00 [facility] ([place]) Comment on above: Performed By: #### C BC, ADIFF, ANEU, APTT, PRO ####[place] [address]#### TROP, BMP, GFR ####[address] [address] Monocytes/100 leukocytes 11.4 % Normal 1.7-13.0 [facility] ([place]) Comment on above: Performed By: #### C BC, ADIFF, ANEU, APTT, PRO ####[place] [address]#### TROP, BMP, GFR ####[address] [address] Neutrophils/100 WBC Auto (Bld) 50.7 % Normal 37.0-80.0 [facility] ([place]) Comment on above: Performed By: #### C BC, ADIFF, ANEU, APTT, PRO ####[place] [address]#### TROP, BMP, GFR ####[address] [address] .GFRon 01-06-2018 GFR Non- 73 ml/min/1.73sqm Normal [facility] ([place]) Comment on above: Result Comment: GFR Population [...] #### C BC, ADIFF, ANEU, APTT, PRO ####[place] [address] [place] [address]#### TROP, BMP, GFR ####[place] [address] GFR 88 ml/min/1.73sqm Normal [facility] ([place]) Comment on above: Result Comment: GFR Population [...] #### C BC, ADIFF, ANEU, APTT, PRO ####[place] [address]#### TROP, BMP, GFR ####[place] [address] .NEUABSon 01-06-2018 Neutrophil, Absolute 3.80 10 3/mcL Normal 2.85-6.16 [facility] ([place]) Comment on above: Performed By: #### C BC, ADIFF, ANEU, APTT, PRO ####[address] [place] [id number]#### TROP, BMP, GFR ####[place] [address] APTTon 01-06-2018 aPTT None Normal [facility] ([place]) Comment on above: Performed By: #### C BC, ADIFF, ANEU, APTT, PRO ####[place] [address]#### TROP, BMP, GFR ####[place] [address] aPTT 34.1 s Normal 25.1-37.9 [facility] ([place]) Comment on above: Result Comment: For Heparin anticoagulation therapy, the recommendedtherapeutic range is: 47.7-87.7 seconds (1.5 - 2.5 the normalplasma mean). Patients on heparin therapy may have an extreme result. Performed By: #### C BC, ADIFF, ANEU, APTT, PRO ####[place] [address]#### TROP, BMP, GFR ####[place] [address] BMPon 01-06-2018 BUN/Creatinine Ratio 24 ratio Normal 7-27 Count includes the [facility] ([place]) Comment on above: Performed By: #### C BC, ADIFF, ANEU, APTT, PRO ####[place] [address]#### TROP, BMP, GFR ####[place] [address] Calcium 9.7 mg/dL Normal 8.4-10.2 [facility] ([place]) Comment on above: Performed By: #### C BC, ADIFF, ANEU, APTT, PRO ####[place] [address]#### TROP, BMP, GFR ####[place] [address] Chloride 104 mmol/L Normal 98-107 [facility] ([place]) Comment on above: Performed By: #### C BC, ADIFF, ANEU, APTT, PRO ####[place] [address]#### TROP, BMP, GFR ####[place] [address] CO2 24 mmol/L Normal 23-31 [facility] ([place]) Comment on above: Performed By: #### C BC, ADIFF, ANEU, APTT, PRO ####[place] [address]#### TROP, BMP, GFR ####[place] [address] Creatinine 1.04 mg/dL Normal 0.70-1.30 [facility] ([place]) Comment on above: Performed By: #### C BC, ADIFF, ANEU, APTT, PRO ####[place] [address]#### TROP, BMP, GFR ####[place] [address] Electrolyte Balance 11.0 mEq/L Normal [facility] ([place]) Comment on above: Performed By: #### C BC, ADIFF, ANEU, APTT, PRO ####[place] [address]#### TROP, BMP, GFR ####[place] [address] Glucose mass conc 117 mg/dL High 80-115 [facility] ([place]) Comment on above: Performed By: #### C BC, ADIFF, ANEU, APTT, PRO ####[place] [address]#### TROP, BMP, GFR ####[place] [address] Potassium molar conc 4.9 mmol/L Normal 3.5-5.1 Count includes the [facility] ([place]) Comment on above: Performed By: #### C BC, ADIFF, ANEU, APTT, PRO ####[place] [address]#### TROP, BMP, GFR ####[place] [address] Sodium 139 mmol/L Normal 136-145 [facility] ([place]) Comment on above: Performed By: #### C BC, ADIFF, ANEU, APTT, PRO ####[place] [address]#### TROP, BMP, GFR ####[address] [address] Urea nitrogen 25 mg/dL High 7-18 [facility] ([place]) Comment on above: Performed By: #### C BC, ADIFF, ANEU, APTT, PRO ####[place] [address]#### TROP, BMP, GFR ####[place] [address] CBCon 01-06-2018 Erythrocyte distribution width Auto Ratio (RBC) 14.5 % Normal 11.5-14.5 [facility] ([place]) Comment on above: Performed By: #### C BC, ADIFF, ANEU, APTT, PRO ####[place] [address]#### TROP, BMP, GFR ####[place] [address] Erythrocytes (RBC) 4.81 10 6/mcL Normal 4.04-6.13 [facility] ([place]) Comment on above: Performed By: #### C BC, ADIFF, ANEU, APTT, PRO ####[place] [address]#### TROP, BMP, GFR ####[place] [address] Hematocrit (HCT) 45.9 % Normal 42.0-52.0 [facility] ([place]) Comment on above: Performed By: #### C BC, ADIFF, ANEU, APTT, PRO ####[place] [address]#### TROP, BMP, GFR ####[address] [address] Hemoglobin mass conc (Bld) 15.8 G/dL Normal 14.0-18.0 [facility] ([place]) Comment on above: Performed By: #### C BC, ADIFF, ANEU, APTT, PRO ####[place] [address]#### TROP, BMP, GFR ####[place] [address] MCH 32.7 pg High 27.0-31.2 [facility] ([place]) Comment on above: Performed By: #### C BC, ADIFF, ANEU, APTT, PRO ####[place] [address]#### TROP, BMP, GFR ####[place] [address] MCHC mass conc (RBC) 34.3 G/dL Normal 31.8-35.4 Count includes the [facility] ([place]) Comment on above: Performed By: #### C BC, ADIFF, ANEU, APTT, PRO ####[place] [address]#### TROP, BMP, GFR ####[place] [address] MCV 95.4 fL High 80.0-94.0 [facility] ([place]) Comment on above: Performed By: #### C BC, ADIFF, ANEU, APTT, PRO ####[place] [address]#### TROP, BMP, GFR ####[place] [address] Platelet mean volume (PMV) 9.3 fL Normal 7.4-10.4 [facility] ([place]) Comment on above: Performed By: #### C BC, ADIFF, ANEU, APTT, PRO ####[place] [address]#### TROP, BMP, GFR ####[place] [address] Platelets 203 10 3/mcL Normal 130-400 [facility] ([place]) Comment on above: Performed By: #### C BC, ADIFF, ANEU, APTT, PRO ####[place] [address]#### TROP, BMP, GFR ####[place] [address] WBC (Leukocytes) 7.40 10 3/mcL Normal 4.60-10.80 [facility] ([place]) Comment on above: Performed By: #### C BC, ADIFF, ANEU, APTT, PRO ####[place] [address]#### TROP, BMP, GFR ####[place] [address] MGon 01-06-2018 Magnesium 2.0 mg/dL Normal 1.8-2.4 [facility] ([place]) Comment on above: Performed By: #### M G ####[address] Emergency Room Note on 01-06-2018 [facility] Note Normal [facility] ([place]) PROon 01-06-2018 INR Coag RelTime (PPP) 1.0 {INR} Normal 0.9-1.2 [facility] ([place]) Comment on above: Result Comment: Dominick dard Dose 2.0 - 3.0High Dose 2.5 - 3.5The recommended therapeutic range for oral anticoagulanttherapy is:LOW RISK: Prophylaxis of venous thrombosis INR: 2.0 - 3.0 Treatment of pulmonary embolism 2.0 - 3.0 Prevention of systemic embolism 2.0 - 3.0HIGH RISK: Mechanical prosthetic valves 2.5 - 3.5 Performed By: #### C BC, ADIFF, ANEU, APTT, PRO ####[place] [address]#### TROP, BMP, GFR ####[place] [address] Prothrombin time (PT) Coag time (PPP) 10.1 s Normal 9.3-14.6 [facility] ([place]) Comment on above: Performed By: #### C BC, ADIFF, ANEU, APTT, PRO ####[place] [address]#### TROP, BMP, GFR ####[place] [id number] [address] [place] [address] Pat Eduon 01-06-2018 Pat Edu Normal [facility] ([place]) Patient Summary Documentson 01-06-2018 Patient Summary Documents Normal [facility] ([place]) TROPon 01-06-2018 Troponin I.cardiac mass conc ng/mL Normal 0.000-0.040 [facility]) Comment on above: Result Comment: Trop onin I reference range: 0.00-0.040 ng/mL Negative and non-diagnostic. >0.040 ng/mL Consistent with cardiac damage, increased clinical risk and possibility of myocardial infarction. Serial measurements, a rise & fall in test results, clinical history, appropriate symptoms and/or ECG changes may help assess possibility of AK. *Other non-acute coronary syndrome conditions such as CHF, myocarditis, pulmonary emboli, sepsis and cardiac surgery could result in myocardial damage and increased troponin levels. Performed By: #### C BC, ADIFF, ANEU, APTT, PRO ####[id number] [place], [place] [address]#### TROP, BMP, GFR ####[place] [id number] [address] [place] [address] XR CHEST 1 VIEWon 01-06-2018 XR CHEST [...] PM Sign Date: 01/06/2018 12:13:40 PM Normal [facility] ([place]) Vital Signs Date Time Vital Sign Value Performing Clinician Facility 10-27-2024 08:32-0400 Body height 185.[address] Erika Faye MD Work Phone: [facility] 10-27-2024 08:32-0400 Body mass index (BMI) [Ratio] 33.5 kg/m2 Dr. Erika Faye MD Work Phone: [facility] 10-27-2024 08:32-0400 Body weight 115.[address] Erika Faye MD Work Phone: [facility] 10-27-2024 08:32-0400 Diastolic blood pressure 65 mm[Hg] Dr. Erika Faye MD Work Phone: [facility] 10-27-2024 08:32-0400 Heart rate 81 /min Dr. Erika Faye MD Work Phone: [facility] 10-27-2024 08:32-0400 Respiratory rate 18 /min Dr. Erika Faye MD Work Phone: [facility] 10-27-2024 08:32-0400 Systolic blood pressure 136 mm[Hg] Dr. Erika Faye MD Work Phone: [facility] 08-12-2024 08:23-0500 Body height 185.4 cm Dino Aguirre MD Work Phone: [facility] 08-12-2024 08:23-0500 Body mass index (BMI) [Ratio] 34.43 kg/m2 Dino Aguirre MD Work Phone: [facility] 08-12-2024 08:23-0500 Body weight 118.39 kg Dino Aguirre MD Work Phone: [facility] 08-12-2024 08:23-0500 Diastolic blood pressure 72 mm[Hg] Dino Aguirre MD Work Phone: [facility] 08-12-2024 08:23-0500 Heart rate 72 /min Dino Aguirre MD Work Phone: [facility] 08-12-2024 08:23-0500 Systolic blood pressure 130 mm[Hg] Dino Aguirre MD Work Phone: [facility] Encounters Encounter Date Encounter Type Care Provider Facility Start: 11-23-2024 ambulatory Erika Faye Facility: [facility] Start: 11-23-2024 Non-patient / Non-visit Dr. Hubert abbott MD -[facility] Start: 11-23-2024 End: 11-23-[address] Erika Faye MD Work Phone: [facility] Work Phone: Start: 11-23-2024 End: 11-23-[address] Hubert Chamorro MD -[facility] Work Phone: Start: 11-23-2024 End: 11-23-2024 ambulatory Erika Faye Facility:[facility] Start: 10-27-2024 End: 10-27-[address] Hubert Chamorro MD -[facility] Work Phone: Start: 10-27-2024 End: 10-27-[address] Erika Faye MD Work Phone: [facility] Work Phone: Start: 08-12-2024 End: 08-12-2024 Office outpatient new 30 minutes Dino Aguirre MD Work Phone: [facility] Comment on above: Palpitations (Primar y Dx); Ventricular premature depolarization Start: 08-12-2024 End: 08-12-2024 ambulatory DINO AGUIRRE [facility] Start: 07-21-2024 End: 07-21-2024 ambulatory LE PALMA MD~[id number] [facility] Start: 07-16-2024 End: 07-16-[address] Erika Faye MD -Laboratory, [place] Work Phone: Start: 07-16-2024 End: 07-16-2024 ambulatory Erika Faye Facility:[facility] Start: 07-02-2024 End: 07-02-[address] Erika Faye MD -Laboratory, [place] Work Phone: Start: 07-02-2024 End: 07-02-2024 ambulatory Erika Faye Facility:[facility] Start: 12-30-2023 End: 12-30-2023 ambulatory Erika Yunier Facility:[facility] Start: 10-09-2023 End: 10-09-2023 ambulatory [facility] Work Phone: Start: 10-09-2023 End: 10-09-2023 Patient encounter procedure [facility] [place] Work Phone: Start: 01-06-2018 End: 01-06-2018 Emergency department patient visit WINIFRED PIMENTEL Facility:B Procedures Date Procedure Procedure Detail Performing Clinician Start: 11-23-2024 Cardiovascular stres s test using pharmacologic stress agent Dr. Erika Faye MD Work Phone: Start: 07-16-2024 Measurement of renal function Dr. Erika Faye MD Work Phone: Comment on above: GFR Calc Start: 07-02-2024 Measurement of renal function Dr. Erika Faye MD Work Phone: Comment on above: GFR Calc Start: 10-09-2023 Investigation of transfusion reaction Start: 10-09-2023 Nasopharyngeal Culture History of coronary artery bypass grafting History of coronary artery bypass graft x 3 Dr. Hubert Chamorro MD Comment on above: SVG to the obtuse ma rginal and SVG to the right PDA totally occluded. MATTHEWS to LAD patent. Plan of Treatment Date Care Activity Detail Author Start: 10-27-2024 Evaluation of diagnostic study results [facility] Start: 02-03-1978 DTaP/Tdap/Td Vaccines (1 - Tdap) DTaP/Tdap/Td Vaccines (1 - Tdap) [facility] Start: 02-03-1974 Hepatitis C screening Hepatitis C Screening [facility] Start: 02-03-1966 Glaucoma screening Diabetes: Retinopathy Screening [facility] Start: 1956 Hemoglobin A1c measurement Diabetes: Hemoglobin A1C [facility] Start: 1956 Lipid panel Lipid Panel [facility] Start: 1956 Screening for malignant neoplasm of colon [facility] Start: 1956 Urine screening for protein Diabetes: Urine Protein Screening [facility] Start: 1956 Yearly Adult Physical Yearly Adult Physical [facility] ECG 12 lead (Clinic Performed) ECG 12 lead (Clinic Performed) ECG Routine Palpitations 08/12/2024 8:22 AM EST [facility] Service Area Work Phone: Immunizations Immunization Date Immunization Notes Care Provider Fa cility 09-19-2020 Covid (Pfizer) [facility] 08-29-2020 Covid (Pfizer) [facility] 04-13-2019 influenza, injectabl e, quadrivalent, preservative free Dino Aguirre MD Work Phone: [facility] Work Phone: Payers Date Payer Category Payer Self-pay [id number] 2022 [employer] [facility] [id number] 2018 Medicare [id number] 1959 Unknown [id number] 1955 Unknown [id number] 1956 Unknown [id number] Medicare MEDICARE A ONLY [id number] Unknown [id number] Unknown [id number] [id number] Unknown [id number] [id number] Unknown [id number] Unknown [id number] Unknown [id number] [id number] Social History Date Type Detail Facility Start: [facility]04[facility] Start: 1955 Sex Assigned At Male [facility] Start: 08-12-2024 [facility] tobacco [facility] Work Phone: Start: 08-12-2024 Tobacco use and exposure Smokeless tobacco non-user [facility] Work Phone: Start: 08-12-2024 Alcoholic beverage intake Ex-drinker (finding) [facility] Work Phone: Start: 08-12-2024 History of Social function [facility] Work Phone: Start: 08-12-2024 [facility] Work Phone: Start: 1955 Sex assigned at Not on file [facility] Work Phone: Start: 08-02-2024 End: 08-12-2024 Exposure to SARS-CoV-2 (event) Not sure [facility] Start: 11-04-2022 [facility] Evaluation note 10-27-2024 Note Date & Type Note Facility 10-27-2024 Evaluation note Diagnosis Onset Date Resolution COPD (chronic obstructive pulmonary disease) chronic October 27, 2024 8:46am Coronary artery disease chronic M ay 2024 8:46am Diabetes mellitus, type 2 chronic October 27, 2024 8:46am Dyslipidemia chronic October 27 8:46am Frequent PVCs chronic October 27, 025 8:46am History of coronary artery bypass graft x 3 chronic October 8:46am Hypertension chronic October 27 8:46am Ischemic cardiomyopathy chronic M ay 2024 8:46am Obesity (BMI 30.0-34.9) chronic M ay 2024 8:46am RUTH (obstructive sleep apnea) chronic October 27, 2024 8:46am Presence of stent in coronary artery chronic October 27, 2024 8:46am [facility] Work Phone: History of Present illness Narrative 08-12-2024 Dino [...] I believe. He underwent 3-vessel CABG at [facility] in [place], as he was living in [place] at the time. He has had some percutaneous interventions since then, but denies ever suffering asymptomatic myocardial infarction. The patient a woman from [place], [place], in 2007, and moved to [facility]. He has been followed by cardiology, and [...] capacity and fewer palpitations. The patient attended [employer] in the early , and got a degree in [employer] course management. He worked in the past today [employer] in [place], [place]. 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 Neither he nor his [...] complications Palpitations Hyperkalemia Atherosclerotic heart disease of [place] coronary artery without angina pectoris Objective: Vitals: 08/12/24 0823 BP: 130/72 Pulse: 72 Height: 1.854 m (6' 1") Weight: 118 kg (261 lb) Exam: Gen: [...] than encouraging the patient to take some xagz-ktm-bxodxol magnesium, which may be beneficial. 2. He [...] Dino Aguirre MD documented in this encounter [facility] Work Phone: Evaluation note Note Date & Type Note Facility Evaluation note No assessment information availa [facility] Work Phone: Evaluation note Note Date & Type Note Facility Evaluation note Diagnosis Palpitations- Primary Ventricular premature depolarization Other premature beats documented in this encounter [facility] Work Phone: Reason for referral (narrative) Note Date & Type Note Facility Reason for referral (narrative) No reason for referral information available [facility] Work Phone: Summary Purpose Family History No Family History Records FoundNo Family History Records FoundNo Family History Records FoundNo Family History Records Found Advance Directives No Advanced Directives Records Found Advance Directive Response Recorded Date/ Time Living Will Yes November 03, 2022 5 :56pm Power of Linux Server Administrator Yes November 03, 2022 5:56pm Chief Complaint and Reason for Visit Chief Complaint Admit Date ESTABLISH (SELF) October 27, 2024 8:46a m Chief Complaint Admit Date ESTABLISH (SELF) October 27, 2024 8:46a m Atherosclerotic heart disease of [place] coronary a November 23, 2024 6:07am Atherosclerotic heart disease of [place] coronary a November 23, 2024 10:33am Reason for Visit Admit Date COPD (chronic obstructive pulmonary dise ase) October 27, 2024 8:46am Coronary artery disease October 27, 2024 8 :46am Diabetes mellitus, type 2 October 27, 2024 8:46am Dyslipidemia October 27, 2024 8:46a m Frequent PVCs October 27, 2024 8:46a m History of coronary artery bypass graft x 3 October 27, 2024 8:46am Hypertension October 27, 2024 8:46a m Ischemic cardiomyopathy October 27, 2024 8 :46am Obesity (BMI 30.0-34.9) October 27, 2024 8 :46am RUTH (obstructive sleep apnea) October 27, 2024 8:46am Presence of stent in coronary artery October 27, 2024 8:46am Additional Source Comments (unrecognized sect ion and content) No Status Records FoundNo Status Records FoundNo Status Records FoundNo Status Records Found INFORMATION SOURCE (unrecogn ized section and content) DATE CREATED AUTHOR 01/07/2018 [facility] ([place]) DATE CREATED AUTHOR AUTHOR'S ORGANIZ ATION 07/24/2024 [facility] DATE CREATED AUTHOR AUTHOR'S ORGANIZ ATION 08/14/2024 [facility] DATE CREATED AUTHOR AUTHOR'S ORGANIZ ATION [facility] Care Teams (unrecognized sec tion [...] October 27, 2024 End: October 27, 2024 Team Status: Inactive Member Role Status Dates Dr. Erika Faye MD Primary Care Provider Active Start: November 23, 2024 End: November 23, 2024 Dr. Hubert Chamorro MD Attending Provider Active Start: November 23, 2024 End: November 23, 2024 Dr. Hubert Chamorro MD Referring Provider Active Start: November 23, 2024 End: November 23, 2024 Team Status: Active Member Role Status Dates Dr. Erika Faye MD Primary Care Provider Active Start: November 23, 2024 Dr. Hubert Chamorro MD Attending Provider Active Start: November 23, 2024 Dr. Hubert Chamorro MD Referring Provider Active Start: November 23, 2024 Dr. Hubert Chamorro MD Other Provider Active Star t: November 23, 2024 Goals (unrecognized section and content) Goals may be documented in a n alternate sectionGoals may be documented in an alternate sectionGoals may be documented in an alternate section Reason for Visit (unrecogniz ed section and content) Reason Comments New Patient Visit Specialty Diagnoses / Procedures Referred By Contac t Referred To Contact Diagnoses Palpitations Procedures ECG 12 lead (Clinic Performed) Dino Aguirre MD [address] [place] [address] [address] [place] [id number] Phone: tel: fax: Referral ID Status Reason Start Date Expiration Date V isits Requested Visits Authorized [id number] Authorized 08/12/2024 08/12/2025 1 1 FOR RECORDS [...] BE BASED ON THE PRIMARY CLINICAL RECORDS. [facility]. provides no warranty or guarantee of the accuracy or completeness of information in this document.
[2025-01-07 10:14] LABS: Hematocrit 43.5 % (40-54); Hemoglobin 14.9 g/dL (13.0-16.5); Immature Granulocytes Count 0.040 X10^3/uL (0.0-0.0); Mean Corp Hgb Conc 34.3 g/dL (32-36); Mean Corpuscular Volume 103.3 fL (80-94); Mean Platelet Vol. 11.2 fl (6.2-12.0); NRBC Flagged by Analyzer 0 % (0-5); Platelet Count 222 K/mm3 (150-450); RBC Distribution Width CV 14.6 % (11.6-14.6); RBC Distribution Width SD 56.5 fl (35.1-43.9); Red Blood Count 4.21 M/mm3 (4.6-6.2); White Blood Count 5.8 K/mm3 (4.4-11.0)
[2025-01-07 11:04] LABS: AST(SGOT) 17 U/L (<=37); Alanine Aminotransfer ALT/SGPT 18 U/L (<=46); Albumin, Serum 4.2 g/dL (3.4-4.8); Alkaline Phosphatase 77 U/L (40-129); Anion Gap 13 (5-15); BUN 16 mg/dL (4-19); BUN/Creat Ratio 16.0 RATIO (10-20); Calcium,Total 9.7 mg/dL (7.6-11.0); Carbon Dioxide 21.1 mmol/L (21.0-32.0); Chloride 106 mmol/L (98-108); Cholesterol 150 mg/dL (<=200); Globulin 2.9 g/dL (2.2-4.2); Glucose 100 mg/dL (70-99); Low Density Lipoprotein Calc. 46 mg/dL; Potassium 4.7 mmol/L (3.3-5.1); Triglycerides 53 mg/dL; Very Low Density Lipoprotein 11 mg/dL (5-40); cholesterol:hdl ratio screen 1.61
[2025-01-08 04:07] LABS: LDL, Direct 120295 55 mg/dL (0-99)
== END | disposition home or self-care (01) ==
PROVIDERS: PCP Family Medicine; Referring Provider Family Medicine; Visit Provider Family Medicine
DX: E11.21 Type 2 diabetes mellitus with diabetic nephropathy (principal); I50.9 Heart failure, unspecified; J41.1 Mucopurulent chronic bronchitis; E11.59 Type 2 diabetes mellitus with other circulatory complications; E78.2 Mixed hyperlipidemia; E03.9 Hypothyroidism, unspecified
CPT/HCPCS: 36415; 80053; 80061; 83036; 83721; 84443; 85025

== ENCOUNTER → 2025-04-08 | Outpatient (CLI) | payer BC, SELFPAY | END | disposition home or self-care (01) | LOC: CVS 07:42 | PROVIDERS: PCP Family Medicine; Referring Provider Nurse Practitioner Family; Visit Provider Nurse Practitioner Family | DX: I25.5 Ischemic cardiomyopathy (principal); I49.3 Ventricular premature depolarization | CPT/HCPCS: 93306 ==

== ENCOUNTER → 2025-06-03 | Outpatient (CLI) | payer BC, SELFPAY ==
--- OUTSIDE RECORDS SUMMARY | 2025-06-03 07:13 | XMS RPT_ITS | CCD ---
Author Organization [facility] Care Team Providers Care Lapeler Name Role Phone WINIFRED PIMENTEL Unavailable Unavailable LE ALCARAZ~[phone], LE Sandy Attendin g Unavailable LE ALCARAZ~[phone], LE Sandy Admittavni g Unavailable YUNIER ALCARAZ, ERIKA hCurchill Primary Care Unavailable Unavailable Primary Care Provider UnavailDINO Salvador Attending Unavailable DINO AGUIRRE Referring Unavailable Yunier ALCARAZ, Dr. James Primary Care Provider Dr. Erika Faye MD Attending Provider Dr. Erika Faye MD Referring Provider [phone] Dr. Hubert Garcia MD Attending Provider Yunier ALCARAZ, Dr. James Primary Care Provider Dr. Erika Faye MD Referring Provider Dr. Hubert Garcia MD Referring Provider Dr. Hubert Garcia MD Other Provider [phone] Yunier ALCARAZ, Dr. James Attending Provider Jeanna DAVID-Efrain Hook Attending Provider YUNIER ALCARAZ, DR ERIKA Churchill Attending Unavailab lupe FAYE MD, DR ERIKA Churchill Attending Unavailab Hubert Lockwood Attending Unavailable Erika Faye Primary Care Unavailable Hubert Garcia Attending Unavailable Hubert Garcia Referring Unavailable Erika Faye Primary Care Unavailable Hubert Garcia Consulting Unavailable Efrain Meeks NP Attending Unavailable Erika Faye Referring Unavailable Erika Faye Primary Care Unavailable Erika Faye Attending Unavailable Erika Faye Primary Care Unavailable Erika Faye Referring Unavailable Hubert Garcia Attending Unavailable Hubert Garcia Referring Unavailable Erika aFye Primary Care Unavailable Erika Faye Attending Unavailable Erika Faye Referring Unavailable Erika Faye Primary Care Unavailable Hubert Garcia Consulting Unavailable Roof DEVELOPMENTAL MATHEMATICS INSTRUCTOR, Efrain Owusu Attending Unavailable Roof DEVELOPMENTAL MATHEMATICS INSTRUCTOREfrain Referring Unavailable Erika Faye Primary Care Unavailable Erika Faye Attending Unavailable Erika Faye Primary Care Unavailable Erika Faye Referring Unavailable Pedro PabloHubert campos Attending Unavailable Erika Faye Referring Unavailable Erika Faye Primary Care Unavailable Medications Current Medications Medication Drug Class(es) Dates Sig (Normalized) Sig (Original) amLODIPine 5 mg oral tablet (5 sources) Dihydropyridine Calcium Channel Zuhair Start: 10-27-2024 take 1 tablet by mouth once daily Amlodipine 5 mg tablet Active 5 mg PO daily October 27, 2024 12:00am take 1 tablet by giovanni th once daily at bedtime amLODIPine (Norvasc) 5 mg tablet Take 1 tablet (5 mg) by mouth once daily at bedtime. Active aspirin 81 mg delayed release oral tablet (8 sources) Platelet Aggregation Inhibitor, Nonsteroidal Anti-inflammatory Drug Start: 04-05-2019 take 1 tablet by mouth once daily Aspirin (Adult Aspirin Regimen) 81 mg tablet,delayed release (DR/EC) Active 81 mg PO DAILY April 05, 2019 12:00am Mytrus Start: 01-06-2018 aspirin 81 mg oral tablet (chewable) Dose : 81 mg = 1 tab(s), Oral, Daily, 0 Refill(s) Start Date: 01/06/18 Status: Ordered Medication Dispense Status: Completed Total Allowed Fills: 1 Fills Dispensed: 0 atorvastatin 80 mg oral tablet (12 sources) HMG-CoA Reductase Inhibitor Start: 10-27-2024 take 1 tablet by mouth once daily Atorvastatin 80 mg tablet Active 80 mg PO daily October 27, 2024 12:00am Start: 04-05-2019 End: 10-27-2024 take 2 tablets by mouth once daily Atorvastatin 20 mg tablet Discontinued 40 mg PO DAILY April 05, 2019 12:00am October 27, 2024 8:55am cholestrol Start: 04-05-2019 take 40 mg by mouth once daily Atorvastatin Active 40 MG PO DAILY April 05, 2019 12:00am Start: 01-06-2018 atorvastatin 4 0 mg oral tablet Dose : 40 mg = 1 tab(s), Oral, qDay, # 30 tab(s), 0 Refill(s) Start Date: 01/06/18 Status: Ordered Medication Dispense Status: Completed Quantity: 30.0 Unit: tab(s) Total Allowed Fills: 1 Fills Dispensed: 0 take 1 tablet by giovanni th once daily atorvastatin (Lipitor) 80 mg tablet Take 1 tablet (80 mg) by mouth once daily. Active clopidogrel 75 mg oral tablet (6 sources) P2Y12 Platelet Inhibitor Start: 04-05-2019 take 1 tablet by mouth once daily Clopidogrel (Plavix) 75 mg tablet Active 75 mg PO DAILY April 05, 2019 12:00am Anti platelet dapagliflozin 10 mg oral tablet (3 sources) Sodium-Glucose Cotransporter 2 Inhibitor Start: 10-27-2024 take 1 tablet by mouth once daily Dapagliflozin Propanediol 10 mg tablet Active 10 mg PO daily 90 October 27, 2024 12:00am Fluticasone-Umeclid in-Vilanter (4 sources) Start: 10-27-2024 Fluticasone-Umeclid in-Vilanter (Trelegy Ellipta) 200-62.5-25 mcg blister with device Active 1 NMA INHALATION daily October 27, 2024 12:00am hydrALAZINE hydrochloride 10 mg oral tablet (5 sources) Arteriolar Vasodilator Start: 10-27-2024 take 1 [...] mononitrate 60 mg extended release oral tablet (5 sources) Nitrate Vasodilator Start: 10-27-2024 take 1 [...] morning. Active lisinopril 40 mg oral tablet (12 sources) Angiotensin Converting Enzyme Inhibitor Start: 04-05-2019 End: 10-27-2024 take 2 tablets by mouth once daily Lisinopril 2.5 mg tablet Discontinued 5 mg PO DAILY April 05, 2019 12:00am October 27, 2024 8:56am blood pressure Start: 04-05-2019 take 5 mg by mouth once daily Lisinopril Active 5 MG PO DAILY April 05, 2019 12:00am Start: 01-06-2018 lisinopril 40 mg oral tablet Dose : 40 mg = 1 tab(s), Oral, qDay, # 30 tab(s), 0 Refill(s) Start Date: 01/06/18 Status: Ordered Medication Dispense Status: Completed Quantity: 30.0 Unit: tab(s) Total Allowed Fills: 1 Fills Dispensed: 0 Magnesium (4 sources) Start: 10-27-2024 take 1 tablet by mouth once daily Magnesium 250 mg tablet Active 250 mg PO daily October 27, 2024 12:00am metFORMIN hydrochloride 850 mg oral tablet (9 sources) Biguanide Start: 01-27-2025 take 1 tablet by mouth every twelve hours Metformin 850 mg tablet Active 850 mg PO Q12H January 27, 2025 12:00am Start: 04-05-2019 End: 01-27-2025 Metformin 1,000 mg tablet Discontinued 850 mg PO TWICE A DAY April 05, 2019 12:00am January 27, 2025 8:03am diabetes Start: 04-05-2019 take 850 mg by mouth twice daily Metformin Active 850 MG PO TWICE A DAY April 05, 2019 12:00am Start: 01-06-2018 metFORMIN 500 mg oral tablet, extended release Dose : 500 mg = 1 tab(s), Oral, qDay, # 30 tab(s), 0 Refill(s) Start Date: 01/06/18 Status: Ordered Medication Dispense Status: Completed Quantity: 30.0 Unit: tab(s) Total Allowed Fills: 1 Fills Dispensed: 0 take 1 tablet by giovanni th every twelve hours metFORMIN (Glucophage) 850 mg tablet Take 1 tablet (850 mg) by mouth every 12 hours. Active 24 hr metoprolol succinate 100 mg extended release oral tablet (11 sources) beta-Adrenergic Zuhair Start: 01-27-2025 take 1 tablet by mouth once daily Metoprolol Succinate 100 mg tablet extended release 24 hr Active 100 mg PO daily January 27, 2025 12:00am Start: 10-27-2024 End: 01-27-2025 take 1 capsule by mouth once daily Metoprolol Succinate 100 mg capsule,sprinkle,ER 24hr Discontinued 100 mg PO daily 90 October 27, 2024 12:00am January 27, 2025 8:03am Start: 10-27-2024 End: 10-27-2024 take 1 capsule by mouth once daily Metoprolol Succinate 50 mg capsule,sprinkle,ER 24hr Discontinued 50 mg PO daily October 27, 2024 12:00am October 27, 2024 3:56pm Start: 01-06-2018 Metoprolol Suc cinate ER 25 mg oral tablet, extended release Dose : 25 mg = 1 tab(s), Oral, qDay, # 30 tab(s), 0 Refill(s) Start Date: 01/06/18 Status: Ordered Medication Dispense Status: Completed Quantity: 30.0 Unit: tab(s) Total Allowed Fills: 1 Fills Dispensed: 0 take 1 tablet by giovanni th once daily metoprolol succinate XL (Toprol-XL) 50 mg 24 hr tablet Take 1 tablet (50 mg) by mouth once daily. Active nitroglycerin 0.4 mg sublingual tablet (8 sources) Nitrate Vasodilator Start: 10-27-2024 End: 10-27-2024 Nitroglycerin 0.4 mg tablet, sublingual Active 0.4 mg SL every 5 to 15 minutes as needed for chest pain 10 07October 27, 2024 3:58pm do not exceed 3 doses per episode nitroglycerin (N itrostat) 0.[address] 1 tablet (0.4 mg) under the tongue every 5 minutes if needed for chest pain. Active 12 hr ranolazine 1000 mg extended release oral tablet (6 sources) Anti-anginal Start: 04-05-2019 take 1 tablet by mouth twice daily Ranolazine (Ranexa) 1,000 mg tablet extended release 12 hr Active 1000 mg PO TWICE A DAY April 05, 2019 12:00am blood thinner Trelegy Ellipta 200-62.5-25 mcg blister with device (1 source) Start: 07-24-2024 take 1 puff(s) by inhalation once daily Trelemelany Ellipta 200-62.5-25 mcg blister with device Inhale 1 puff once daily. 07/24/2024 Active Completed/Discontinued Medications Medication Drug Class(es) Dates Sig (Normalized) Sig (Original) isosorbide dinitrate 5 mg oral tablet (5 sources) Nitrate Vasodilator Start: 04-05-2019 End: 10-27-2024 Isosorbide Dinitrate 5 mg tablet Discontinued 30 mg PO DAILY April 05, 2019 12:00am October 27, 2024 8:56am Blood pressure Start: 04-05-2019 take 30 mg by mouth once daily Isosorbide Dinitrate Active 30 MG PO DAILY April 05, 2019 12:00am predniSONE 20 mg oral tablet (5 sources) Start: 11-05-2022 End: 10-27-2024 take 2 tablets by mouth once daily Prednisone 20 mg tablet Discontinued 40 mg PO DAILY 10 November 05, 2022 12:00am October 27, 2024 8:57am Start: 11-05-2022 take 40 mg by mouth once daily Prednisone Active 40 MG PO DAILY 10 November 05, 2022 12:00am terbinafine 250 mg oral tablet (5 sources) Allylamine Antifungal Start: 11-04-2022 End: 10-27-2024 take 1 tablet by mouth once daily Terbinafine Hcl 250 mg tablet Discontinued 250 mg PO DAILY November 04, 2022 12:00am October 27, 2024 8:57am toenail fungus Problems Active Problems Problem Classification Problem Date Documented Date Episodic/Chronic Acute bronchitis (5 sources) Acute bronchitis; Translations: [Acute bronchitis, unspecified] 04-05-2019 Episodic Cardiac dysrhythmias (14 sources) Ventricular premature depolarization; Translations: [Ventricular premature complex] Onset: 07-22-2024 08-12-2024 Chronic Cardiac dysrhythmias (6 sources) Palpitations; Translations: [Palpitations] Onset: 07-22-2024 08-12-2024 Episodic Chronic obstructive pulmonary disease and bronchiectasis (13 sources) Acute exacerbation of chronic obstructive airways disease; Translations: [Chronic obstructive pulmonary disease with (acute) exacerbation] 11-13-2022 Chronic Complication of device; implant or graft (1 source) 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 His tory of percutaneous intervention to the right coronary artery and LMCA. Unsuccessful attempted PCI of right PDA. Diabetes mellitus with complications (10 sources) Type 2 diabetes mellitus; Translations: [Type 2 diabetes mellitus with other circulatory complications] Onset: 01-13-2024 08-09-2024 Chronic Disorders of lipid metabolism (7 sources) Dyslipidemia; Translations: [Hyperlipidemia, unspecified] 10-27-2024 Chronic Essential hypertension (10 sources) Essential hypertension; Translations: [Essential (primary) hypertension] Onset: 07-22-2024 08-09-2024 Chronic Other and ill-defined heart disease (4 sources) Heart disease; Translations: [Heart disease, unspecified] 10-26-2024 Chronic Other and ill-defined heart disease (1 source) Heart disease, unspecified; Translations: [Heart disease, unspecified] Onset: 10-27-2024 Chronic Other lower respiratory disease (5 sources) Cough; Translations: [Cough] 04-05-2019 Episodic Other nutritional; endocrine; and metabolic disorders (8 sources) Obese class I; Translations: [Class 1 obesity] 10-27-2024 Chronic Other upper respiratory disease (5 sources) Bleeding from nose; Translations: [Epistaxis] 08-12-2019 Episodic Residual codes; unclassified (8 sources) Obstructive sleep apnea syndrome; Translations: [Obstructive sleep apnea (adult) (pediatric)] 10-27-2024 Chronic Past or Other Problems Problem Classification Problem Date Documented Da te Episodic/Chronic Coronary atherosclerosis and other heart disease (10 sources) Stented coronary artery; Translations: [Presence of coronary angioplasty implant and graft] Onset: 12-02-2024 10-27-2024 Episodic Comment on above: AMINAH to the RCA and t o the LMCA. Fluid and electrolyte disorders (2 sources) Hyperkalemia; Translations: [Hyperkalemia] Onset: 07-30-2024 08-09-2024 Episodic Results Test Name Value Interpretation Reference Range Facility US RENALon 04-11-2025 US RENAL ORIGINAL EXAMINATION: LIMITED RETROPERITONEAL [id number]/27/2025 7:42 am Ultrasound retroperitoneum Complete: Attention Urinary tract COMPARISON: CT chest 03/23/2025 TECHNIQUE: This report is based on interpretation of permanently recorded ultrasound images. HISTORY: ORDERING SYSTEM PROVIDED HISTORY: Reason for Exam: RENAL CYST, abnormal findings on chest CT FINDINGS: Right kidney: 12.5 x 7.2 x 7.0 cm. There is normal cortical thickness and borderline increased echogenicity. No pelvocaliectasis, shadowing stone or solid mass is seen. There are multiple small benign appearing cysts in the kidney largest is 2.8 cm. Left kidney: 13.1 x 7.4 x 6.2 cm. Normal cortical thickness and echogenicity with no pelvocaliectasis, shadowing stone or suspicious mass. There are multiple left renal cysts at least 3 are seen in the upper portion 2.5 cm, 2.7 cm and 1.3 cm. No other renal lesion is seen. The urinary bladder is moderately distended with volume of 120 cc. There is bladder wall thickening and trabeculation. Postvoid volume is only 9 cc. Prostate volume estimated 32 cc.. There is no free fluid seen in the abdomen. IMPRESSION: Bilateral simple appearing renal cysts. Borderline increased right renal echogenicity, correlate clinically to exclude medical renal disease. Bladder wall thickening and trabeculation may be from outlet obstruction. No significant postvoid residual. Interpreted by: Harmony Cervantes MD Preliminary Report By: Harmony Cervantes MD Electronically signed By Harmony Cervantes MD Dictated Date: 04/11/2025 8:59:18 AM Prelim Date: 04/11/2025 9:02:07 AM Sign Date: 04/11/2025 9:02:07 AM Ordering Provider: ERIKA FAYE Normal [facility] Echo Completeon 04-08-2025 Echo Complete [facility] [address] [place] [address] Echo Complete 04/08/25822 MR#: [id number] Acct: [id number] Name: DENISE GÓMEZ Rep #: [id number] : [id number] 70 From: Hubert Garcia MD Attending Dr: Efrain Meeks DEVELOPMENTAL MATHEMATICS INSTRUCTOR-C Status: REG CLI Ordering Dr: Efrain Meeks DEVELOPMENTAL MATHEMATICS INSTRUCTOR DEVELOPMENTAL MATHEMATICS INSTRUCTOR-C Date: 04/08/25 Location: [facility] Sex: M C Admitted: Reason For Study Reason For Study: Re-evaluate EF Procedure This was a 2D Doppler, Color Flow transthoracic echocardiogram. Exam performed in department. Left Ventricle Mildly dilated left ventricle. Mild concentric left ventricular hypertrophy. Mild posterior inferior and inferior septal hypokinesis. Estimated LVEF 50%. Stage I diastolic dysfunction. Right Ventricle Normal RV size. Normal systolic function. Atria There is mild biatrial dilatation. Mitral Valve Normal mitral valve. Tricuspid Valve Normal tricuspid valve. Trivial tricuspid valve insufficiency. Pulmonary artery systolic pressure is 15 mmHg. Aortic Valve Trisinus/trileaflet aortic valve. Pulmonic Valve Normal pulmonic valve. Great Vessels Normal sized aortic root. Pericardium/Pleural No pericardial effusion. MMode/2D Measurements Calculations LVIDd: 5.9 cm IVSd: 1.3 cm LVOT diam: 2.1 cm LVIDs: 4.3 cm LVPWd: 1.3 cm LVOT area: 3.6 cm2 RVDd: 3.8 cm FS: 26.3 % _ Ao root diam: 3.3 cm LAV(MOD-bp): 83.8 ml LVAd ap4: 43.7 cm2 LAV(MOD-bp) Indexed: 35.6 ml/m2 LVLd ap4: 10.3 cm LAV(MOD-sp2): 67.7 ml EDV(MOD-sp4): 151.8 ml LAV(MOD-sp4): 80.0 ml EDV(sp4-el): 157.3 ml LVAs ap4: 22.1 cm2 LVLs ap4: 7.6 cm ESV(MOD-sp4): 52.1 ml ESV(sp4-el): 54.6 ml EF(MOD-sp4): 65.7 % EF(sp4-el): 65.3 % _ LVAd ap2: 43.5 cm2 SV(MOD-sp4): 99.7 ml SV(MOD-sp2): 115.5 ml LVLd ap2: 8.8 cm SI(MOD-sp4): 42.5 ml/m2 SI(MOD-sp2): 49.2 ml/m2 EDV(MOD-sp2): 184.1 ml EDV(sp2-el): 181.5 ml LVAs ap2: 24.2 cm2 LVLs ap2: 7.5 cm ESV(MOD-sp2): 68.6 ml ESV(sp2-el): 66.4 ml EF(MOD-sp2): 62.7 % _ SV(sp4-el): 102.7 ml LA A4 area: 25.0 cm2 RA A4 area: 20.9 cm2 _ TAPSE: 1.4 cm Time Measurements MV dec time: 0.32 sec Doppler Measurements Calculations MV E max carlos: 47.0 cm/sec Lat Peak E' Carlos: 11.2 cm/sec Med Peak E' Carlos: 8.1 cm/sec MV A max carlos: 67.8 cm/sec E/E' lat: 4.2 E/E' med: 5.8 MV E/A: 0.69 _ MV dec slope: 148.1 cm/sec2 Ao V2 max: 146.4 cm/sec LV V1 max: 151.5 cm/sec Ao max P.6 mmHg LV V1 max P.2 mmHg Ao V2 mean: 95.6 cm/sec LV V1 mean P.2 mmHg Ao mean P.2 mmHg LV V1 mean: 95.8 cm/sec Ao V2 VTI: 27.5 cm LV V1 VTI: 28.8 cm AV (velocity ratio): 1.0 BENNIE(I,D): 3.7 cm2 BENNIE(V,D): 3.7 cm2 _ SV(LVOT): 102.7 ml PA V2 max: 114.3 cm/sec TR max carlos: 169.3 cm/sec TR max P.5 mmHg ECHO/Echo Complete Interpretation Summary Mildly dilated left ventricle.Mild posterior inferior and inferior septal hypokinesis. Estimated LVEF 50%. Stage I diastolic dysfunction. There is mild biatrial dilatation. Ordering Physician: Efrain Meeks Referring Physician: Erika Faye Performed By: Jill Bob RDCS 04/11/251246 Date Hubert Garcia MD CC: DEVELOPMENTAL MATHEMATICS INSTRUCTOR-C Efrain Meeks; Dr. Erika Faye MD Date Dictated: 04/08/25822 Date Transcribed: 04/11/251246 Solution Lead: Signed Normal [facility] CT THORAX SCREENING W/O CONT [facility] 03-25-2025 CT THORAX SCREENING W/O CONTRAST ORIGINAL EXAMINATION: LOW DOSE SCREENING CT OF THE CHEST WITHOUT [id number]/8/2025 7:27 am TECHNIQUE: Low dose lung cancer screening CT of the chest was performed without the administration of intravenous contrast. Multiplanar reformatted images are provided for review. Automated exposure control, iterative reconstruction, and/or weight based adjustment of the mA/kV was utilized to reduce the radiation dose to as low as reasonably achievable. COMPARISON: None. HISTORY: ORDERING SYSTEM PROVIDED HISTORY: Reason for Exam: SCREENING 20 cigs per day for 40 years 40 pack-year smoking history. FINDINGS: Mild cardiomegaly. Post CABG changes. Moderate coronary atherosclerosis of the [place] coronary arteries. No pericardial effusion or thickening. Nonaneurysmal thoracic aorta with mild atherosclerotic calcifications. The main pulmonary artery is dilated and measures 3.7 cm. No lymphadenopathy is visible on this unenhanced exam. No suspicious findings seen in the visualized portion of the abdomen. Subcentimeter right renal hypodensities are nonspecific. Exophytic 2.4 cm left renal cyst measures 7 HU. Another exophytic left renal cyst anteriorly measures 2.5 cm and approximately 2 HU. Another subcentimeter hypodensity within the left kidney may represent a cyst. The abdomen is not evaluated in detail. The trachea and mainstem bronchi are patent. Right greater than left centrilobular and paraseptal emphysema. Scattered areas of pleural and parenchymal scarring. Multifocal bronchial wall thickening. There is in oval shaped area of consolidation involving the posteromedial right lower lobe measuring approximately 2.2 cm felt to reflect an area of round atelectasis.. There is a 4 mm subpleural right lower lobe nodule (series 302, image 103). Partially calcified 4 mm density seen within the anterior left upper lobe may represent an area of chronic scarring or calcified granuloma. Other scattered 2-3 mm pulmonary nodules are identified. There is pleural thickening and pleural calcifications seen with within the right lower thorax. No pleural effusion or pneumothorax. Patient is status post median sternotomy. No aggressive osseous lesions visible. Multilevel mild degenerative changes are present in the spine. Degenerative changes seen in the spine. Mild bilateral gynecomastia. Soft tissue nodularity within the right breast measuring up to 1.1 cm (series 303, image 63), is nonspecific, correlate with history/physical exam. IMPRESSION: 4 mm right lower lobe nodule. For patients with appropriate lung cancer risk, annual CT screening is recommended. Emphysema. Bronchial wall thickening, findings may be seen with bronchitis. Right pleural thickening and calcification. Adjacent rounded atelectasis [place] coronary artery atherosclerosis. Dilated main pulmonary artery, findings may be seen in pulmonary hypertension. Information below is for Lung nodule tracking purposes: Nodule: S3 Other Findings: P-CAC Change: Na Recall : 1yr scr Recall Type: LDCT LungRads: 2s I have personally reviewed the images of this examination and agree with the resident's findings and interpretation. Interpreted by: Cisco Long MD Preliminary Report By: Jitendra Franco Electronically signed By Cisco Long MD Dictated Date: 03/25/2025 10:34:42 AM Prelim Date: 03/25/2025 1:28:32 PM Sign Date: 03/25/2025 1:28:32 PM Ordering Provider: ERIKA FAYE RP Normal [facility] Cardiology Visit Reporton Cardiology Visit Report [facility] [address] [place], [place] [address] OFFICE VISIT Date of Service: 01/27/25 MR#: [id number] Acct: [id number] Name: DENISE GÓMEZ Rep #: [id number] : 1955 Provider: ACACIA juarez Age/Sex: 69/M Location: [facility] Status: Signed HPI HPI History of Present Illness Details: This gentleman has a past medical history significant for coronary artery disease. Patient has had a triple-vessel CABG in the early 1999's. In 2004, he was noted to have totally occluded SVG to the OM and to the right PDA. Subsequently he has had percutaneous intervention done, first to the [place] RCA and then to the left main coronary artery. His last coronary angiography was in 2018. MATTHEWS to the LAD and stents to the left main coronary artery and RCA were noted to be patent. Echocardiogram done recently showed LVEF 41%. Mildly dilated left ventricular cavity was noted. No major valvular abnormalities noted.Patient's last stress test was in 2018. He [...] on metoprolol extended release 50 mg daily. He denies chest, arm, jaw, or neck discomfort. He denies palpitations. He denies bilateral lower extremity edema. He denies claudication. He acknowledges shortness of breath with activity that he attributes to COPD. This is not new or worsening and noted after walking and improves when walking slowly. He denies shortness of breath at rest, orthopnea, or PND. He denies chronic cough. He denies significant, sudden weight gain. He denies lightheadedness, dizziness, near-syncope, or syncope. He denies blood in urine, blood in stool, or epistaxis. He denies fever with chills. He denies myalgia. He denies fatigue. His exercise level has remained stable. Intake Vital Signs 10/27/24 08:32 01/27/25 07:56 Height 6 ft 1 in 6 ft 1 in Weight: 254 lb 246 lb BMI 33.5 32.4 BP 136/65 H 135/75 H Blood Pressure Location Lt brachial Lt brachial Position Sitting Sitting Respiration 18 16 Pulse 81 53 L Pulse Source NIBP NIBP Intake Visit Reasons: 3 M [employer] Receiving Clerk Required: No Is patient in pain?: No Allergies No Known Allergies Allergy (Verified 01/27/25 08:02) Medications ???Medication ???Instructions ???Recorded ???Confirmed ???Type aspirin 81 mg tablet,delayed 81 mg PO DAILY heart health 01/27/25 History release (Adult Aspirin Regimen) clopidogrel 75 mg tablet (Plavix) 75 mg PO DAILY Anti platelet 03/1701/27/25 History ranolazine 1,000 mg 1,000 mg PO BID blood thinner 03/1701/27/25 History tablet,extended release,12 hr (Ranexa) amlodipine 5 mg tablet 5 mg PO QDAY 10/27/24 01/27/25 His tory atorvastatin 80 mg tablet 80 mg PO QDAY 10/27/24 01/27/25 Hi story dapagliflozin propanediol 10 mg 10 mg PO QDAY #90 tabs 10/27/24 Rx tablet fluticasone fur. 200 mcg-umeclid 1 inh inhalation QDAY 10/27/24 History 62.5 mcg-vilant 25 mcg inhalat.powder (Trelegy Ellipta) hydralazine 10 mg tablet 10 mg PO TID 10/27/24 01/27/25 His tory isosorbide mononitrate 60 mg 60 mg PO QDAY 10/27/24 01/27/25 Hi story tablet,extended release 24 hr lisinopril 40 mg tablet 40 mg PO QDAY 10/27/24 01/27/25 Hi story magnesium 250 mg tablet 250 mg PO QDAY 10/27/24 01/27/25 H istory nitroglycerin 0.4 mg sublingual 0.4 mg sublingual Q5-15M PRN chest 10/27/24 01/27/25 Rx tablet pain #25 tabs metformin 850 mg tablet 850 mg PO Q12H 01/27/25 01/27/25 H istory metoprolol succinate 100 mg 100 mg PO QDAY 01/27/25 01/27/25 H istory tablet,extended release 24 hr Ejection fraction %: 41 Have you fallen in the past year?: No PFSH Medical History RUTH (obstructive sleep apnea) Diabetes mellitus, type 2 COPD (chronic obstructive pulmonary disease) H/O hemorrhoids Heart disease Hypertension Surgical History H/O heart artery stent Bypass graft stenosis Social History (Updated 01/27/25 @ 08:32 by Efrain Meeks DEVELOPMENTAL MATHEMATICS INSTRUCTOR, DEVELOPMENTAL MATHEMATICS INSTRUCTOR-C) Smoking Status: Former smoker quit date: 03/25/18 how long ago did patient quit smokin weeks ago alcohol intake: current alcohol intake frequency: a few times a week Alcohol type: beer substance use type: does not use caffeine: Yes Type: coffee Number of servings: 2 ROS Const Const: Negative for fatigue or weakness Eyes Eyes: Negative for change in vision ENT ENT: Negative for dizziness or balance problems Cardio Ch (more content not included)... Normal [facility] LDL, Directon 01-08-2025 Cholesterol in LDL [Mass/Vol] 55 mg/dL Normal 0-99 [facility] Comment on above: Result Comment: Perf ormed at: CB - [facility] [address] [id number] Feed Blender: Andrew Escobar PhD, Phone: [phone] Performed By: #### L 100.0100, L501.9985, L500.4050, L500.4100, L501.9520, L3300.4490 #### [facility] [address] [place], [place], [id number] COMMENT TNP Normal . [facility] Comment on above: Performed By: #### L 100.0100, L501.9985, L500.4050, L500.4100, L501.9520, L3300.4490 #### [facility] [address] [place], [place], [id number] Absolute lymphocyte countOrd ered By: Erika Faye on 01-07-2025 Lymphocytes Auto (Unsp spec) [#/Vol] 1.10 10*3/uL 0.83-4.51 [facility] Absolute neutrophil countOrd ered By: Erika Faye on 01-07-2025 Neutrophils (Bld) [#/Vol] 3.8 10*3/uL 2.0-7.7 [facility] Anion gap in Serum or Plasma Ordered By: Erika Faye on 01-07-2025 Anion gap [Moles/Vol] 13 mmol/L - [facility] Automated lymphocyte count a s percentage of total leukocytesOrdered By: Erika Faye on 01-07-2025 Lymphocytes/100 WBC Auto (Unsp spec) 18.9 % Low - [facility] BUN/creatinine ratioOrdered By: Erika Faye on 01-07-2025 Urea nitrogen/Creatinine [Mass ratio] 16.0 mg/mg - [facility] Basophil percentageOrdered B y: Erika Faye on 01-07-2025 Basophils/100 WBC (Bld) 0.7 % 0-1 [facility] Bilirubin, totalOrdered By: Erika Faye on 01-07-2025 Bilirubin [Mass/Vol] 0.53 mg/dL 0.00-1.30 [facility] CBC W/Diff, Automatedon 12-15 Absolute Lymph 1.10 X10 3/uL Normal 0.83-4.51 [facility] Comment on above: Performed By: #### L 100.0100, L501.9985, L500.4050, L500.4100, L501.9520, L3300.4490 #### [facility] [address] [place], [address] Absolute Neut 3.8 X10 3/uL Normal 2.0-7.7 [facility] Comment on above: Performed By: #### L 100.0100, L501.9985, L500.4050, L500.4100, L501.9520, L3300.4490 #### [facility] [address] [facility] [place], [address] Basophils/100 WBC (Bld) 0.7 % Normal 0-1 [facility] Comment on above: Performed By: #### L 100.0100, L501.9985, L500.4050, L500.4100, L501.9520, L3300.4490 #### [facility] [address] [place], [address] Eosinophils/100 WBC (Bld) 2.1 % Normal 0-5 [facility] Comment on above: Performed By: #### L 100.0100, L501.9985, L500.4050, L500.4100, L501.9520, L3300.4490 #### [facility] [address], [address] Erythrocyte distribution width (RBC) [Ratio] 14.6 % Normal 11.6-14.6 [facility] Comment on above: Performed By: #### L 100.0100, L501.9985, L500.4050, L500.4100, L501.9520, L3300.4490 #### [facility] [address], [address] Hematocrit (Bld) [Volume fraction] 43.5 % Normal 40-54 [facility] Comment on above: Performed By: #### L 100.0100, L501.9985, L500.4050, L500.4100, L501.9520, L3300.4490 #### [facility] [address] [place], [address] Hemoglobin (Bld) [Mass/Vol] 14.9 g/dL Normal 13.0-16.5 [facility] Comment on above: Performed By: #### L 100.0100, L501.9985, L500.4050, L500.4100, L501.9520, L3300.4490 #### [facility] [address] [place], [address] IG% 0.700 Normal 0.0-0.9 [facility] Comment on above: Result Comment: IG% - Immature Granulocytes (promyelocytes, myelocytes and metamyelocytes) > 1% indicates that a LEFT SHIFT is Present. Performed By: #### L 100.0100, L501.9985, L500.4050, L500.4100, L501.9520, L3300.4490 #### [facility] [address] [place], [address] Lymphocytes/100 WBC (Bld) 18.9 % Low 19-41 [facility] Comment on above: Performed By: #### L 100.0100, L501.9985, L500.4050, L500.4100, L501.9520, L3300.4490 #### [facility] [address] [place], [address] MCH (RBC) [Entitic mass] 35.4 pg High 27.0-32.0 [facility] Comment on above: Performed By: #### L 100.0100, L501.9985, L500.4050, L500.4100, L501.9520, L3300.4490 #### [facility] [address] [place], [address] MCHC (RBC) [Mass/Vol] 34.3 g/dL Normal 32-36 [facility] Comment on above: Performed By: #### L 100.0100, L501.9985, L500.4050, L500.4100, L501.9520, L3300.4490 #### [facility] [address] [place], [address] MCV (RBC) [Entitic vol] 103.3 fL High 80-94 [facility] Comment on above: Performed By: #### L 100.0100, L501.9985, L500.4050, L500.4100, L501.9520, L3300.4490 #### [facility] [address] [place], [address] Monocytes/100 WBC (Bld) 11.9 % High 0-10 [facility] Comment on above: Performed By: #### L 100.0100, L501.9985, L500.4050, L500.4100, L501.9520, L3300.4490 #### [facility] [address] [place], [address] Neutrophils/100 WBC (Bld) 65.7 % Normal 47-70 [facility] Comment on above: Performed By: #### L 100.0100, L501.9985, L500.4050, L500.4100, L501.9520, L3300.4490 #### [facility] [address] [place], [address] Nucleated RBC (Bld) [#/Vol] 0 10*3/uL Normal 0-5 [facility] Comment on above: Performed By: #### L 100.0100, L501.9985, L500.4050, L500.4100, L501.9520, [id number] #### [facility] [address] [place], [address] Platelet mean volume (Bld) [Entitic vol] 11.2 fL Normal 6.2-12.0 [facility] Comment on above: Performed By: #### L 100.0100, L501.9985, L500.4050, L500.4100, L501.9520, L3300.4490 #### [facility] [address] [place], [address] Platelets (Bld) [#/Vol] 222 10*3/uL Normal 150-450 [facility] Comment on above: Performed By: #### L 100.0100, L501.9985, L500.4050, L500.4100, L501.9520, L3300.4490 #### [facility] [address] [place], [address] RBC (Bld) [#/Vol] 4.21 10*6/uL Low 4.6-6.2 [facility] Comment on above: Performed By: #### L 100.0100, L501.9985, L500.4050, L500.4100, L501.9520, [id number] #### [facility] [address] [place], [address] RDW SD 56.5 fl High 35.1-43.9 [facility] Comment on above: Performed By: #### L 100.0100, L501.9985, L500.4050, L500.4100, L501.9520, L3300.4490 #### [facility] [address] [place], [address] WBC (Bld) [#/Vol] 5.8 10*3/uL Normal 4.4-11.0 [facility] Comment on above: Performed By: #### L 100.0100, L501.9985, L500.4050, L500.4100, L501.9520, L3300.4490 #### [facility] [address] [place], [address] Calculated very low density lipoprotein (VLDL) cholesterol measurementOrdered By: Erika Faye on 01-07-2025 Calculated very low density lipoprotein (VLDL) cholesterol measurement 11 mg/dL 5-40 [facility] Carbon dioxide, total [Moles /volume] in Central venous bloodOrdered By: Erika Faye on 01-07-2025 CO2 [Moles/Vol] 21.1 mmol/L 21.0-32.0 [facility] Chloride assayOrdered By: Lupe Faye on 01-07-2025 Chloride [Moles/Vol] 106 mmol/L 98-108 [facility] Cholesterol in LDL Direct as say [Mass/Vol]Ordered By: Erika Faye on 01-07-2025 Cholesterol in LDL [Mass/Vol] 55 mg/dL 0-99 [facility] Comment on above: Performed at: [address] [id number] Director: Andrew Escobar PhD, Phone: [phone] [facility] 01-07-2025 Albumin [Mass/Vol] 4.2 g/dL Normal 3.4-4.8 [facility] Comment on above: Performed By: #### L 100.0100, L501.9985, L500.4050, L500.4100, L501.9520, L3300.4490 #### [facility] [address] [place], [address] Albumin/Globulin [Mass ratio] 1.4 {ratio} Normal 0.9-2.4 [facility] Comment on above: Performed By: #### L 100.0100, L501.9985, L500.4050, L500.4100, L501.9520, L3300.4490 #### [facility] [address] [place], [address] ALK PHOS 77 U/L Normal 40-129 [facility] Comment on above: Performed By: #### L 100.0100, L501.9985, L500.4050, L500.4100, L501.9520, L3300.4490 #### [facility] [address] [place], [address] ALT [Catalytic activity/Vol] 18 U/L Normal <=46 [facility] Comment on above: Performed By: #### L 100.0100, L501.9985, L500.4050, L500.4100, L501.9520, L3300.4490 #### [facility] [address] [place], [address] AST [Catalytic activity/Vol] 17 U/L Normal <=37 [facility] Comment on above: Performed By: #### L 100.0100, L501.9985, L500.4050, L500.4100, L501.9520, L3300.4490 #### [facility] [address] [place], [address] Bilirubin [Mass/Vol] 0.53 mg/dL Normal 0.00-1.30 [facility] Comment on above: Performed By: #### L 100.0100, L501.9985, L500.4050, L500.4100, L501.9520, L3300.4490 #### [facility] [address] [place], [address] BUN/CRE 16.0 RATIO Normal 10-20 [facility] Comment on above: Performed By: #### L 100.0100, L501.9985, L500.4050, L500.4100, L501.9520, L3300.4490 #### [facility] [address] [place], [address] Calcium [Mass/Vol] 9.7 mg/dL Normal 7.6-11.0 [facility] Comment on above: Performed By: #### L 100.0100, L501.9985, L500.4050, L500.4100, L501.9520, L3300.4490 #### [facility] [address] [place], [address] Chloride [Moles/Vol] 106 mmol/L Normal 98-108 [facility] Comment on above: Performed By: #### L 100.0100, L501.9985, L500.4050, L500.4100, L501.9520, L3300.4490 #### [facility] [address] [place], [address] CO2 [Moles/Vol] 21.1 mmol/L Normal 21.0-32.0 [facility] Comment on above: Performed By: #### L 100.0100, L501.9985, L500.4050, L500.4100, L501.9520, L3300.4490 #### [facility] [address] [place], [address] Creatinine [Mass/Vol] 1.01 mg/dL Normal 0.70-1.20 [facility] Comment on above: Performed By: #### L 100.0100, L501.9985, L500.4050, L500.4100, L501.9520, L3300.4490 #### [facility] [address] [place], [address] GAP 13 Normal 5-15 [facility] Comment on above: Performed By: #### L 100.0100, L501.9985, L500.4050, L500.4100, L501.9520, L3300.4490 #### [facility] [address] [place], [address] GFR/1.73 sq M.predicted among non-blacks MDRD (S/P/Bld) [Vol rate/Area] 81 mL/min/{1.73_m2} Normal >60 [facility] Comment on above: Result Comment: mL/m in/1.73m2 CKD-EPI Creatinine Equation (2020) Performed By: #### L 100.0100, L501.9985, L500.4050, L500.4100, L501.9520, L3300.4490 #### [facility] [address] [place], [address] Globulin (S) [Mass/Vol] 2.9 g/dL Normal 2.2-4.2 [facility] Comment on above: Performed By: #### L 100.0100, L501.9985, L500.4050, L500.4100, L501.9520, L3300.4490 #### [facility] [address] [place], [address] Glucose [Mass/Vol] 100 mg/dL High 70-99 [facility] Comment on above: Performed By: #### L 100.0100, L501.9985, L500.4050, L500.4100, L501.9520, L3300.4490 #### [facility] [address] [place], [address] Potassium [Moles/Vol] 4.7 mmol/L Normal 3.3-5.1 [facility] Comment on above: Performed By: #### L 100.0100, L501.9985, L500.4050, L500.4100, L501.9520, L3300.4490 #### [facility] [address] [place], [address] Sodium [Moles/Vol] 140 mmol/L Normal 133-145 [facility] Comment on above: Performed By: #### L 100.0100, L501.9985, L500.4050, L500.4100, L501.9520, L3300.4490 #### [facility] [address] [place], [address] T PROT 7.0 g/dL Normal 5.9-8.4 [facility] Comment on above: Performed By: #### L 100.0100, L501.9985, L500.4050, L500.4100, L501.9520, L3300.4490 #### [facility] [address] [place], [address] Urea nitrogen [Mass/Vol] 16 mg/dL Normal 4-19 [facility] Comment on above: Performed By: #### L 100.0100, L501.9985, L500.4050, L500.4100, L501.9520, L3300.4490 #### [facility] [address] [place], [address] Eosinophil percentageOrdered By: Erika Faye on 01-07-2025 Eosinophils/100 WBC (Bld) 2.1 % 0-5 [facility] Erythrocyte distribution wid th ratioOrdered By: Erika Faye on 01-07-2025 Erythrocyte distribution width (RBC) [Ratio] 14.6 % 11.6-14.6 [facility] Erythrocyte distribution wid th standard deviationOrdered By: Erika Faye on 01-07-2025 Erythrocyte distribution width (RBC) [Ratio] 56.5 fl High 35.1-43.9 [facility] Glomerular filtration rate ( GFR) estimation/1.73 sq m using serum, plasma, or whole bOrdered By: Erika Faye on 01-07-2025 GFR/1.73 sq M.predicted among non-blacks MDRD (S/P/Bld) [Vol rate/Area] 81 mL/min/{1.73_m2} >60 [facility] Comment on above: mL/min/1.73m2 CKD-EP I Creatinine Equation (2020) Hematocrit Auto (Bld) [Volum e fraction]Ordered By: Erika Faye on 01-07-2025 Hematocrit (Bld) [Volume fraction] 43.5 % 40-54 [facility] Hemoglobin A1con 01-07-2025 HbA1c (Bld) [Mass fraction] 5.9 % High <=5.6 [facility] Comment on above: Result Comment: Norm al < 5.7 % Prediabetic 5.7 - 6.4 % Diabetic >or= 6.5 % Please note range changes. Performed By: #### L 100.0100, L501.9985, L500.4050, L500.4100, L501.9520, L3300.4490 #### [facility] [address] [place], [place], [id number] Hemoglobin A1c percentageOrd ered By: Erika Faye on 01-07-2025 HbA1c (Bld) [Mass fraction] 5.9 % High <5.7 [facility] Comment on above: Normal < 5.7 % Predi abetic 5.7 - 6.4 % Diabetic >or= 6.5 % Please note range changes. Hemoglobin measurementOrdere d By: Erika Faye on 01-07-2025 Hemoglobin (Bld) [Mass/Vol] 14.9 g/dL 13.0-16.5 [facility] Immature granulocytes/100 WB C Auto (Bld)Ordered By: Erika Faye on 01-07-2025 Immature granulocytes/100 WBC (Bld) 0.700 % 0.0-0.9 [facility] Comment on above: IG% - Immature Granu locytes (promyelocytes, myelocytes and metamyelocytes) > 1% indicates that a LEFT SHIFT is Present. LDL calc ser/plasOrdered By: Erika Faye on 01-07-2025 Cholesterol in LDL [Mass/Vol] 46 mg/dL [facility] Comment on above: Gkbwgwojpl=029-818 m g/dL & Higher Lsqu=556 mg/dL or greater Laboratory - Chemistry and C hemistry - challengeOrdered By: Erika Faye on 01-07-2025 AST [Catalytic activity/Vol] 17 U/L <38 [facility] - Miscellaneous t estsOrdered By: Erika Faye on 01-07-2025 Service comment (Unsp spec) [Interp] TNP [facility] Comment on above: Test not performed Lipid Profileon 01-07-2025 CHOL:HDL 1.61 Normal [facility] Comment on above: Performed By: #### L 100.0100, L501.9985, L500.4050, L500.4100, L501.9520, L3300.4490 #### [facility] [address] [place], [address] Cholesterol [Mass/Vol] 150 mg/dL Normal <=200 [facility] Comment on above: Result Comment: Chol esterol level, Desirable <200 mg/dL Borderline high cholesterol 200-239 mg/dL High cholesterol >=240 mg/dL Recommendations of the NCEP Adult Treatment Panel for the following risk-cutoff thresholds for the [place] population. Performed By: #### L 100.0100, L501.9985, L500.4050, L500.4100, L501.9520, L3300.4490 #### [facility] [address] [place], [address] Cholesterol in HDL [Mass/Vol] 93 mg/dL Normal [facility] Comment on above: Result Comment: Rekha onal Cholesterol Education Program (NCEP) guidelines: <40 mg/dL: Low HDL-cholesterol (major risk factor for CHD) >= 60 mg/dL: High HDL-cholesterol (negative risk factor for CHD) HDL-cholesterol is affected by a number of factors, e.g. smoking, exercise, hormones, sex and age. Performed By: #### L 100.0100, L501.9985, L500.4050, L500.4100, L501.9520, L3300.4490 #### [facility] [address] [place], [address] Cholesterol in LDL [Mass/Vol] 46 mg/dL Normal [facility] Comment on above: Result Comment: Bord ldozez=092-380 mg/dL Higher Bnee=354 mg/dL or greater Performed By: #### L 100.0100, L501.9985, L500.4050, L500.4100, L501.9520, L3300.4490 #### [facility] [address] [place], [address] Cholesterol in VLDL [Mass/Vol] 11 mg/dL Normal 5-40 [facility] Comment on above: Performed By: #### L 100.0100, L501.9985, L500.4050, L500.4100, L501.9520, L3300.4490 #### [facility] [address] [place], [address] Triglyceride [Mass/Vol] 53 mg/dL Normal [facility] Comment on above: Result Comment: The drugs N-Acetylcysteine and Metamizole may falsely depress this assay. Normal range: <150 mg/dL Borderline High: 150-199 mg/dL High: 200-499 mg/dL Very High: >500 mg/dL Performed By: #### L 100.0100, L501.9985, L500.4050, L500.4100, L501.9520, L3300.4490 #### [facility] [address] [place], [address] MCV (mean corpuscular volume ) determinationOrdered By: Erika Faye on 01-07-2025 MCV (RBC) [Entitic vol] 103.3 fL High 80-94 [facility] Mean corpuscular hemoglobin (MCH) determinationOrdered By: Erika Faye on 01-07-2025 MCH (RBC) [Entitic mass] 35.4 pg High 27.0-32.0 [facility] Mean corpuscular hemoglobin concentration (MCHC) determinationOrdered By: Erika Faye on 01-07-2025 MCHC (RBC) [Mass/Vol] 34.3 g/dL 32-36 [facility] Mean platelet volume determi nationOrdered By: Erika Faye on 01-07-2025 Platelet mean volume (Bld) [Entitic vol] 11.2 fL 6.2-12.0 [facility] Monocyte percentageOrdered B y: Erika Faye on 01-07-2025 Monocytes/100 WBC (Bld) 11.9 % High 0-10 [facility] Neutrophil percentageOrdered By: Erika Faye on 01-07-2025 Neutrophils/100 WBC (Bld) 65.7 % 47-70 [facility] Nucleated red blood cell per centageOrdered By: Erika Faye on 01-07-2025 Nucleated RBC/100 WBC (Bld) [Ratio] 0 % 0-5 [facility] Platelet countOrdered By: Lupe Faye on 01-07-2025 Platelets (Bld) [#/Vol] 222 10*3/uL 150-450 [facility] Potassium measurement (mass/ volume)Ordered By: Erika Faye on 01-07-2025 Potassium (Unsp spec) [Mass/Vol] 4.7 mmol/L 3.3-5.1 [facility] RBC Auto (Bld) [#/Vol]Ordere d By: Erika Faye on 01-07-2025 RBC (Bld) [#/Vol] 4.21 10*6/uL Low 4.6-6.2 [facility] Screening total cholesterol/ high density lipoprotein (HDL) cholesterol ratioOrdered By: Erika Faye on 01-07-2025 Cholesterol.total/Abi sterol in HDL [Mass ratio] 1.61 {ratio} [facility] Serum creatinine measurement (mass/volume)Ordered By: Erika Faye on 01-07-2025 Creatinine [Mass/Vol] 1.01 mg/dL 0.70-1.20 [facility] Serum globulin measurementOr dered By: Erika Faye on 01-07-2025 Globulin (S) [Mass/Vol] 2.9 g/dL 2.2-4.2 [facility] Serum glucose measurement (m ass/volume)Ordered By: Erika Faye on 01-07-2025 Glucose [Mass/Vol] 100 mg/dL High 70-99 [facility] Serum or plasma alanine mcbride otransferase (ALT) measurementOrdered By: Erika Faye on 01-07-2025 ALT [Catalytic activity/Vol] 18 U/L <47 [facility] Serum or plasma albumin daysi urement (mass/volume)Ordered By: Erika Faye on 01-07-2025 Albumin [Mass/Vol] 4.2 g/dL 3.4-4.8 [facility] Serum or plasma albumin/glob ulin mass ratioOrdered By: Erika Faye on 01-07-2025 Albumin/Globulin [Mass ratio] 1.4 {ratio} 0.9-2.4 [facility] Serum or plasma alkaline ralph sphatase measurementOrdered By: Erika Faye on 01-07-2025 ALP [Catalytic activity/Vol] 77 U/L 40-129 [facility] Serum or plasma calcium daysi urement (mass/volume)Ordered By: Erika Faye on 01-07-2025 Calcium [Mass/Vol] 9.7 mg/dL 7.6-11.0 [facility] Serum or plasma cholesterol in HDL measurement (mass/volume)Ordered By: Erika Faye on 01-07-2025 Cholesterol in HDL [Mass/Vol] 93 mg/dL >40 [facility] Comment on above: National Cholesterol Education Program (NCEP) guidelines:<40 mg/dL: Low HDL-cholesterol (major risk factor for CHD)>= 60 mg/dL: High HDL-cholesterol (negative risk factor for CHD)HDL-cholesterol is affected by a number of factors, e.g. smoking, exercise, hormones, sex and age. Serum or plasma cholesterol measurement (mass/volume)Ordered By: Erika Faye on 01-07-2025 Cholesterol [Mass/Vol] 150 mg/dL <201 [facility] Comment on above: Cholesterol level, D esirable <200 mg/dLBorderline high cholesterol 200-239 mg/dLHigh cholesterol >=240 mg/dLRecommendations of the NCEP Adult Treatment Panel for the following risk-cutoff thresholds for the [place] population. Serum or plasma urea nitroge n measurement (mass/volume)Ordered By: Erika Faye on 01-07-2025 Urea nitrogen [Mass/Vol] 16 mg/dL 4-19 [facility] Sodium levelOrdered By: Chacha Faye on 01-07-2025 Sodium [Moles/Vol] 140 mmol/L 133-145 [facility] TSH DL <= 0.005 mIU/L QnOrde red By: Erika Faye on 01-07-2025 TSH Qn 1.820 uIU/mL 0.300-4.200 [facility] Thyroid Stim Hormone (TSH)on 01-07-2025 TSH 1.820 uIU/mL Normal 0.300-4.200 [facility] Comment on above: Performed By: #### L 100.0100, L501.9985, L500.4050, L500.4100, L501.9520, L3300.4490 #### [facility] [address] [place], [address] Total proteinOrdered By: Fred Faye on 01-07-2025 Protein [Mass/Vol] 7.0 g/dL 5.9-8.4 [facility] Triglycerides measurementOrd ered By: Erika Faye on 01-07-2025 Triglyceride [Mass/Vol] 53 mg/dL <199 [facility] Comment on above: The drugs N-Acetylcy steine and Metamizole may falsely depress this assay. Normal range: <150 mg/dLBorderline High: 150-199 mg/dLHigh: 200-499 mg/dLVery High: >500 mg/dL White blood cell (WBC) count Ordered By: Erika Faye on 01-07-2025 WBC (Bld) [#/Vol] 5.8 10*3/uL 4.4-11.0 [facility] Cardiovascular stress test r eportOrdered By: Hubert Garcia on 11-23-2024 Study report [facility] [address] [place] [address] MR#: [id number] Acct: [id number] Name: DENISE GÓMEZ Rep #: [id number] : 1955 69 From: Hubert Garcia MD Primary Care: Dr. Erika Faye MD Statu s: REG CLI Referring Dr: Hubert Garcia MD Sex: M C Stress Test Report [...] images available.. This note was generated with [employer] software. It may contain incorrectwords, spelling, and punctuation that were not noted in checking the note beforesigning. 11/23/24 1037 Date _ Hubert Garcia MD CC: Dr. Hubert Garcia MD; Dr. Erika Faye MD ~ Date Dictated: 11/23/241032 Date Transcribed: 11/23/241032 Solution Lead: JODI Dugan [facility] Work Phone: Stress Reporton 11-23-2024 Stress Report [facility] [address] [place] [address] MR#: [id number] Acct: [id number] Name: DENISE GÓMEZ Rep #: [id number] : 1955 69 From: Hubert Garcia MD Primary Care: Dr. Erika Faye MD Status: REG CLI Referring Dr: Hubert Garcia MD Sex: M C Stress Test Report [...] images available.. This note was generated with [employer] software. It may contain incorrect words, spelling, and punctuation that were not noted in checking the note before signing. 11/23/24 1037 Date Hubert Garcia MD CC: Dr. Hubert Garcia MD; Dr. Erika Faye MD Date Dictated: 11/23/24 1033 Date Transcribed: 11/23/24 103 Solution Lead: JODI Signed Normal [facility] Cardiology Visit Reporton Cardiology Visit Report [facility] [address] [place] [address] OFFICE VISIT Date of Service: 10/27/24 MR#: [id number] Acct: [id number] Name: DENISE GÓMEZ Rep #: [id number] : 1955 Provider: Dr. 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 Hubert Garcia MD) RUTH (obstructive sleep apnea) Diabetes mellitus, type 2 COPD (chronic obstructive pulmonary disease) H/O hemorrhoids Heart disease Hypertension Surgical History (Updated 10/27/24 @ 09:[address] Hubert Garcia MD) H/O heart artery stent Bypass graft [...] well nourished (more content not included)... Normal [facility] Basic Metabolic Profile (BMP )on 07-16-2024 BUN/CRE 19.6 RATIO Normal 04-04 [facility] Comment on above: Performed By: #### L 500.2500 #### [facility] [place], [address] CA,Total 9.5 mg/dL Normal 8.5-10.1 [facility] Comment on above: Performed By: #### L 500.2500 #### [facility] [address] [place], [address] Chloride [Moles/Vol] 107 mmol/L Normal 98-107 [facility] Comment on above: Performed By: #### L 500.2500 #### [facility] [address] [place], [address] CO2 [Moles/Vol] 25.0 mmol/L Normal 21.0-32.0 [facility] Comment on above: Performed By: #### L 500.2500 #### [facility] [address] [place], [address] Creatinine [Mass/Vol] 1.02 mg/dL Normal 0.70-1.30 [facility] Comment on above: Result Comment: The validity of the calculated GFR GFRAA in patients over 70 years has not been determined. Clinical correlation is essential. Performed By: #### L 500.2500 #### [facility] [address] [place], [address] EST GFR - AA 93 mL/min Normal >60 [facility] Comment on above: Result Comment: Afri can Marshallese GFR Calc Performed By: #### L 500.2500 #### [facility] [address] [place], [address] GAP 7 Normal 5-15 [facility] Comment on above: Performed By: #### L 500.2500 #### [facility] [address] [place], [address] GFR/1.73 sq M.predicted among non-blacks MDRD (S/P/Bld) [Vol rate/Area] 77 mL/min/{1.73_m2} Normal >60 [facility] Comment on above: Result Comment: Non- GFR Calc Performed By: #### L 500.2500 #### [facility] [address] [place], [address] Glucose [Mass/Vol] 113 mg/dL High 74-106 [facility] Comment on above: Result Comment: Fast ing Glucose result from 100 to 125 mg/dL suggests IMPAIRED HOMEOSTASIS per A.D.A. criteria. Performed By: #### L 500.2500 #### [facility] [address] [place], [address] Potassium [Moles/Vol] 4.9 mmol/L Normal 3.5-5.1 [facility] Comment on above: Performed By: #### L 500.2500 #### [facility] [address] [place], [address] Sodium [Moles/Vol] 139 mmol/L Normal 136-145 [facility] Comment on above: Performed By: #### L 500.2500 #### [facility] [address] [place], [address] Urea nitrogen [Mass/Vol] 20 mg/dL High 7-18 [facility] Comment on above: Performed By: #### L 500.2500 #### [facility] [address] [place], [address] Blood urea nitrogen (BUN)/cr eatinine ratioOrdered By: Erika Faye on 07-16-2024 Urea nitrogen/Creatinine [Mass ratio] 19.6 mg/mg 10-20 [facility] Carbon dioxide measurementOr dered By: Erika Faye on 07-16-2024 CO2 [Moles/Vol] 25.0 mmol/L 21.0-32.0 [facility] Chloride measurementOrdered By: Erika Faye on 07-16-2024 Chloride [Moles/Vol] 107 mmol/L 98-107 [facility] Glomerular filtration rate ( GFR) estimationOrdered By: Erika Faye on 07-16-2024 GFR/1.73 sq M.predicted among non-blacks MDRD (S/P/Bld) [Vol rate/Area] 77 mL/min/{1.73_m2} >60 [facility] Comment on above: Non- GFR Calc Glucose measurementOrdered B y: Erika Faye on 07-16-2024 Glucose [Mass/Vol] 113 mg/dL High 74-106 [facility] Comment on above: Fasting Glucose resu lt from 100 to 125 mg/dL suggests IMPAIRED HOMEOSTASIS per A.D.A. criteria. Potassium measurementOrdered By: Erika Faye on 07-16-2024 Potassium [Moles/Vol] 4.9 mmol/L 3.5-5.1 [facility] Serum anion gap measurementO rdered By: Erika Faye on 07-16-2024 Anion gap [Moles/Vol] 7 mmol/L 5-15 [facility] Serum or plasma calcium daysi urement (mass/volume)Ordered By: Erika Faye on 07-16-2024 Calcium [Mass/Vol] 9.5 mg/dL 8.5-10.1 [facility] Serum or plasma creatinine m easurement (mass/volume)Ordered By: Erika Faye on 07-16-2024 Creatinine [Mass/Vol] 1.02 mg/dL 0.70-1.30 [facility] Comment on above: The validity of the calculated GFR & GFRAA in patients over 70 years has not been determined. Clinical correlation is essential. Serum or plasma urea nitroge n measurement (mass/volume)Ordered By: Erika Faye on 07-16-2024 Urea nitrogen [Mass/Vol] 20 mg/dL High 7-18 [facility] Sodium levelOrdered By: Chacha Faye on 07-16-2024 Sodium [Moles/Vol] 139 mmol/L 136-145 [facility] LDL, Directon 07-03-2024 Cholesterol in LDL [Mass/Vol] 58 mg/dL Normal 0-99 [facility] Comment on above: Result Comment: Perf ormed at: - [facility] [address] [id number] Feed Blender: Andrew Escobar PhD, Phone: [phone] Performed By: #### L 501.8666, L100.0100, L500.4100, L500.3400, L3300.4490, L501.9520, L500.2500 ####[facility] [address] [place], [address] COMMENT TNP Normal . [facility] Comment on above: Performed By: #### L 501.9985, L100.0100, L500.4100, L500.3400, L3300.4490, L501.9520, L500.2500 ####[facility] [address] [place], [address] Absolute lymphocyte countOrd ered By: Erika Faye on 07-02-2024 Lymphocytes Auto (Unsp spec) [#/Vol] 1.54 10*3/uL 0.83-4.51 [facility] Absolute neutrophil countOrd ered By: Erika Faye on 07-02-2024 Neutrophils (Bld) [#/Vol] 4.5 10*3/uL 2.0-7.7 [facility] Automated lymphocyte count a s percentage of total leukocytesOrdered By: Erika Faye on 07-02-2024 Lymphocytes/100 WBC Auto (Unsp spec) 21.9 % 19-41 [facility] Basic Metabolic Profile (BMP )on 07-02-2024 BUN/CRE 19.1 RATIO Normal 10-20 [facility] Comment on above: Performed By: #### L 501.9985, L100.0100, L500.4100, L500.3400, L3300.4490, L501.9520, L500.2500 ####[facility] [address] [place], [address] CA,Total 9.4 mg/dL Normal 8.5-10.1 [facility] Comment on above: Performed By: #### L 501.9985, L100.0100, L500.4100, L500.3400, L3300.4490, L501.9520, L500.2500 ####[facility] [address] [place], [address] Chloride [Moles/Vol] 111 mmol/L High 98-107 [facility] Comment on above: Performed By: #### L 501.9985, L100.0100, L500.4100, L500.3400, L3300.4490, L501.9520, L500.2500 ####[facility] [address] [place], [address] CO2 [Moles/Vol] 25.0 mmol/L Normal 21.0-32.0 [facility] Comment on above: Performed By: #### L 501.9985, L100.0100, L500.4100, L500.3400, L3300.4490, L501.9520, L500.2500 ####[facility] [address] [place], [address] Creatinine [Mass/Vol] 1.10 mg/dL Normal 0.70-1.30 [facility] Comment on above: Result Comment: The validity of the calculated GFR GFRAA in patients over 70 years has not been determined. Clinical correlation is essential. Performed By: #### L 501.9985, L100.0100, L500.4100, L500.3400, L3300.4490, L501.9520, L500.2500 ####[facility] [address] [place], [address] EST GFR - AA 86 mL/min Normal >60 [facility] Comment on above: Result Comment: Afri can Marshallese GFR Calc Performed By: #### L 501.9985, L100.0100, L500.4100, L500.3400, L3300.4490, L501.9520, L500.2500 ####[facility] [address] [place], [address] GAP 5 Normal 5-15 [facility] Comment on above: Performed By: #### L 501.9985, L100.0100, L500.4100, L500.3400, L3300.4490, L501.9520, L500.2500 ####[facility] [address] [place], [address] GFR/1.73 sq M.predicted among non-blacks MDRD (S/P/Bld) [Vol rate/Area] 71 mL/min/{1.73_m2} Normal >60 [facility] Comment on above: Result Comment: Non- GFR Calc Performed By: #### L 501.9985, L100.0100, L500.4100, L500.3400, L3300.4490, L501.9520, L500.2500 ####[facility] [address] [place], [address] Glucose [Mass/Vol] 99 mg/dL Normal 74-106 [facility] Comment on above: Performed By: #### L 501.9985, L100.0100, L500.4100, L500.3400, L3300.4490, L501.9520, L500.2500 ####[facility] [address] [place], [address] Potassium [Moles/Vol] 5.8 mmol/L High 3.5-5.1 [facility] Comment on above: Performed By: #### L 501.9985, L100.0100, L500.4100, L500.3400, L3300.4490, L501.9520, L500.2500 ####[facility] [address] [place], [address] Sodium [Moles/Vol] 141 mmol/L Normal 136-145 [facility] Comment on above: Performed By: #### L 501.9985, L100.0100, L500.4100, L500.3400, L3300.4490, L501.9520, L500.2500 ####[facility] [address] [place], [address] Urea nitrogen [Mass/Vol] 21 mg/dL High 7-18 [facility] Comment on above: Performed By: #### L 501.9985, L100.0100, L500.4100, L500.3400, L3300.4490, L501.9520, L500.2500 ####[facility] [address], [address] Basophil percentageOrdered B y: Erika Faye on 07-02-2024 Basophils/100 WBC (Bld) 0.4 % 0-1 [facility] Bilirubin directOrdered By: Erika Faye on 07-02-2024 Bilirubin.direct [Mass/Vol] 0.20 mg/dL 0.00-0.30 [facility] Bilirubin, totalOrdered By: Erika Faye on 07-02-2024 Bilirubin [Mass/Vol] 0.70 mg/dL 0.20-1.00 [facility] Comment on above: For patients on eltr ombopag therapy, use of Dimension [place] TBIL is not recommended. Blood urea nitrogen (BUN)/cr eatinine ratioOrdered By: Erika Faye on 07-02-2024 Urea nitrogen/Creatinine [Mass ratio] 19.1 mg/mg 10-20 [facility] CBC W/Diff, Automatedon 06-16 Absolute Lymph 1.54 X10 3/uL Normal 0.83-4.51 [facility] Comment on above: Performed By: #### L 501.9985, L100.0100, L500.4100, L500.3400, L3300.4490, L501.9520, L500.2500 ####[facility] [address], [address] Absolute Neut 4.5 X10 3/uL Normal 2.0-7.7 [facility] Comment on above: Performed By: #### L 501.9985, L100.0100, L500.4100, L500.3400, L3300.4490, L501.9520, L500.2500 ####[facility] [address], [address] Basophils/100 WBC (Bld) 0.4 % Normal 0-1 [facility] Comment on above: Performed By: #### L 501.9985, L100.0100, L500.4100, L500.3400, L3300.4490, L501.9520, L500.2500 ####[facility] [address] [place], [address] Eosinophils/100 WBC (Bld) 2.6 % Normal 0-5 [facility] Comment on above: Performed By: #### L 501.9985, L100.0100, L500.4100, L500.3400, L3300.4490, L501.9520, L500.2500 ####[facility] [address] [place], [address] Erythrocyte distribution width (RBC) [Ratio] 14.0 % Normal 11.6-14.6 [facility] Comment on above: Performed By: #### L 501.9985, L100.0100, L500.4100, L500.3400, L3300.4490, L501.9520, L500.2500 ####[facility] [address] [place], [address] Hematocrit (Bld) [Volume fraction] 44.9 % Normal 40-54 [facility] Comment on above: Performed By: #### L 501.9985, L100.0100, L500.4100, L500.3400, L3300.4490, L501.9520, L500.2500 ####[facility] [address] [place], [address] Hemoglobin (Bld) [Mass/Vol] 14.3 g/dL Normal 13.0-16.5 [facility] Comment on above: Performed By: #### L 501.9985, L100.0100, L500.4100, L500.3400, L3300.4490, L501.9520, L500.2500 ####[facility] [address] [place], [address] IG% 0.300 Normal 0.0-0.9 [facility] Comment on above: Result Comment: IG% - Immature Granulocytes (promyelocytes, myelocytes and metamyelocytes) > 1% indicates that a LEFT SHIFT is Present. Performed By: #### L 501.9985, L100.0100, L500.4100, L500.3400, L3300.4490, L501.9520, L500.2500 ####[facility] [address] [place], [address] Lymphocytes/100 WBC (Bld) 21.9 % Normal 19-41 [facility] Comment on above: Performed By: #### L 501.9985, L100.0100, L500.4100, L500.3400, L3300.4490, L501.9520, L500.2500 ####[facility] [address] [place], [address] MCH (RBC) [Entitic mass] 33.2 pg High 27.0-32.0 [facility] Comment on above: Performed By: #### L 501.9985, L100.0100, L500.4100, L500.3400, L3300.4490, L501.9520, L500.2500 ####[facility] [address] [place], [address] MCHC (RBC) [Mass/Vol] 31.8 g/dL Low 32-36 [facility] Comment on above: Performed By: #### L 501.9985, L100.0100, L500.4100, L500.3400, L3300.4490, L501.9520, L500.2500 ####[facility] [address] [place], [address] MCV (RBC) [Entitic vol] 104.2 fL High 80-94 [facility] Comment on above: Performed By: #### L 501.9985, L100.0100, L500.4100, L500.3400, L3300.4490, L501.9520, L500.2500 ####[facility] [address] [place], [address] Monocytes/100 WBC (Bld) 10.4 % High 0-10 [facility] Comment on above: Performed By: #### L 501.9985, L100.0100, L500.4100, L500.3400, L3300.4490, L501.9520, L500.2500 ####[facility] [address] [place], [address] Neutrophils/100 WBC (Bld) 64.4 % Normal 47-70 [facility] Comment on above: Performed By: #### L 501.9985, L100.0100, L500.4100, L500.3400, L3300.4490, L501.9520, L500.2500 ####[facility] [address] [place], [address] Nucleated RBC (Bld) [#/Vol] 0 10*3/uL Normal 0-5 [facility] Comment on above: Performed By: #### L 501.9985, L100.0100, L500.4100, L500.3400, L3300.4490, L501.9520, L500.2500 ####[facility] [address] [place], [address] Platelet mean volume (Bld) [Entitic vol] 11.8 fL Normal 6.2-12.0 [facility] Comment on above: Performed By: #### L 501.9985, L100.0100, L500.4100, L500.3400, L3300.4490, L501.9520, L500.2500 ####[facility] [address] [place], [address] Platelets (Bld) [#/Vol] 226 10*3/uL Normal 150-450 [facility] Comment on above: Performed By: #### L 501.9985, L100.0100, L500.4100, L500.3400, L3300.4490, L501.9520, L500.2500 ####[facility] [address] [place], [address] RBC (Bld) [#/Vol] 4.31 10*6/uL Low 4.6-6.2 [facility] Comment on above: Performed By: #### L 501.9985, L100.0100, L500.4100, L500.3400, L3300.4490, L501.9520, L500.2500 ####[facility] [address] [place], [address] RDW SD 54.7 fl High 35.1-43.9 [facility] Comment on above: Performed By: #### L 501.9985, L100.0100, L500.4100, L500.3400, L3300.4490, L501.9520, L500.2500 ####[facility] [address] [place], [address] WBC (Bld) [#/Vol] 7.0 10*3/uL Normal 4.4-11.0 [facility] Comment on above: Performed By: #### L 501.9985, L100.0100, L500.4100, L500.3400, L3300.4490, L501.9520, L500.2500 ####[facility] [address] [place], [address] Carbon dioxide measurementOr dered By: Erika Faye on 07-02-2024 CO2 [Moles/Vol] 25.0 mmol/L 21.0-32.0 [facility] Chloride measurementOrdered By: Erika Faye on 07-02-2024 Chloride [Moles/Vol] 111 mmol/L High 98-107 [facility] Cholesterol in LDL Direct as say [Mass/Vol]Ordered By: Erika Faye on 07-02-2024 Cholesterol in LDL [Mass/Vol] 58 mg/dL 0-99 [facility] Comment on above: Performed at: [address] [id number] Director: Andrew Escobar PhD, Phone: [phone] Eosinophil percentageOrdered By: Erika Faye on 07-02-2024 Eosinophils/100 WBC (Bld) 2.6 % 0-5 [facility] Erythrocyte distribution wid th ratioOrdered By: Erika Faye on 07-02-2024 Erythrocyte distribution width (RBC) [Ratio] 14.0 % 11.6-14.6 [facility] Erythrocyte distribution wid th standard deviationOrdered By: Erika Faye on 07-02-2024 Erythrocyte distribution width (RBC) [Ratio] 54.7 fl High 35.1-43.9 [facility] Glomerular filtration rate ( GFR) estimationOrdered By: Erika Faye on 07-02-2024 GFR/1.73 sq M.predicted among non-blacks MDRD (S/P/Bld) [Vol rate/Area] 71 mL/min/{1.73_m2} >60 [facility] Comment on above: Non- GFR Calc Glucose measurementOrdered B y: Erika Faye on 07-02-2024 Glucose [Mass/Vol] 99 mg/dL 74-106 [facility] Hematocrit Auto (Bld) [Volum e fraction]Ordered By: Erika Faye on 07-02-2024 Hematocrit (Bld) [Volume fraction] 44.9 % 40-54 [facility] Hemoglobin A1con 07-02-2024 HbA1c (Bld) [Mass fraction] 6.1 % High 3.8-5.6 [facility] Comment on above: Result Comment: Norm al < 5.7 % Prediabetic 5.7 - 6.4 % Diabetic >or= 6.5 % Please note range changes. Performed By: #### L 501.9985, L100.0100, L500.4100, L500.3400, L3300.4490, L501.9520, L500.2500 ####[facility] [address] [place], [address] Hemoglobin A1c percentageOrd ered By: Erika Faye on 07-02-2024 HbA1c (Bld) [Mass fraction] 6.1 % High 3.8-5.6 [facility] Comment on above: Normal < 5.7 % Predi abetic 5.7 - 6.4 % Diabetic >or= 6.5 % Please note range changes. Hemoglobin measurementOrdere d By: Erika Faye on 07-02-2024 Hemoglobin (Bld) [Mass/Vol] 14.3 g/dL 13.0-16.5 [facility] High density lipoprotein (HD L) measurementOrdered By: Erika Faye on 07-02-2024 Cholesterol in HDL [Mass/Vol] 67 mg/dL >40 [facility] Comment on above: The drugs N-Acetylcy steine and Metamizole may falsely depress this assay. Reference Range HDL <40 mg/dL Low HDL Cholesterol HDL >or= 60 mg/dL High HDL Cholesterol Immature granulocytes/100 WB C Auto (Bld)Ordered By: Erika Faye on 07-02-2024 Immature granulocytes/100 WBC (Bld) 0.300 % 0.0-0.9 [facility] Comment on above: IG% - Immature Granu locytes (promyelocytes, myelocytes and metamyelocytes) > 1% indicates that a LEFT SHIFT is Present. Laboratory - Chemistry and C hemistry - challengeOrdered By: Erika Faye on 07-02-2024 AST [Catalytic activity/Vol] 15 U/L 15-37 [facility] Laboratory - Miscellaneous t estsOrdered By: Erika Faye on 07-02-2024 Service comment (Unsp spec) [Interp] TNP [facility] Comment on above: Test not performed Lipid Profileon 07-02-2024 Cholesterol [Mass/Vol] 124 mg/dL Normal 200 [facility] Comment on above: Result Comment: <200 mg/dL Desirable 200-240 mg/dL Borderline >240 mg/dL High Risk Performed By: #### L 501.9985, L100.0100, L500.4100, L500.3400, L3300.4490, L501.9520, L500.2500 ####[facility] [address] [place], [address] Cholesterol in HDL [Mass/Vol] 67 mg/dL Normal [facility] Comment on above: Result Comment: The drugs N-Acetylcysteine and Metamizole may falsely depress this assay. Reference Range HDL <40 mg/dL Low HDL Cholesterol HDL >or= 60 mg/dL High HDL Cholesterol Performed By: #### L 501.9985, L100.0100, L500.4100, L500.3400, L3300.4490, L501.9520, L500.2500 ####[facility] [address] [place], [address] Cholesterol in LDL [Mass/Vol] 44 mg/dL Normal 0-130 [facility] Comment on above: Performed By: #### L 501.9985, L100.0100, L500.4100, L500.3400, L3300.4490, L501.9520, L500.2500 ####[facility] [address] [place], [address] Cholesterol in VLDL [Mass/Vol] 13 mg/dL Normal 5-40 [facility] Comment on above: Performed By: #### L 501.9985, L100.0100, L500.4100, L500.3400, L3300.4490, L501.9520, L500.2500 ####[facility] [address] [place], [address] Triglyceride [Mass/Vol] 65 mg/dL Normal [facility] Comment on above: Result Comment: The drugs N-Acetylcysteine and Metamizole may falsely depress this assay. Serum Triglycerides Reference Interval Normal <150 mg/dL Borderline high 150 - 199 mg/dL High 200 - 499 mg/dL Very High > or = 500 mg/dL Performed By: #### L 501.9985, L100.0100, L500.4100, L500.3400, L3300.4490, L501.9520, L500.2500 ####[facility] [address] [place], [address] Liver Profileon 07-02-2024 Albumin [Mass/Vol] 3.4 g/dL Normal 3.2-5.0 [facility] Comment on above: Performed By: #### L 501.9985, L100.0100, L500.4100, L500.3400, L3300.4490, L501.9520, L500.2500 ####[facility] [address] [place], [address] ALK P 88 U/L Normal 45-117 [facility] Comment on above: Performed By: #### L 501.9985, L100.0100, L500.4100, L500.3400, L3300.4490, L501.9520, L500.2500 ####[facility] [address] [place], [address] ALT [Catalytic activity/Vol] 23 U/L Normal 16-61 [facility] Comment on above: Performed By: #### L 501.9985, L100.0100, L500.4100, L500.3400, L3300.4490, L501.9520, L500.2500 ####[facility] [address] [place], [address] AST [Catalytic activity/Vol] 15 U/L Normal 15-37 [facility] Comment on above: Performed By: #### L 501.9985, L100.0100, L500.4100, L500.3400, L3300.4490, L501.9520, L500.2500 ####[facility] [address] [place], [address] Bilirubin [Mass/Vol] 0.70 mg/dL Normal 0.20-1.00 [facility] Comment on above: Result Comment: For patients on eltrombopag therapy, use of Dimension [place] TBIL is not recommended. Performed By: #### L 501.9985, L100.0100, L500.4100, L500.3400, L3300.4490, L501.9520, L500.2500 ####[facility] [address] [place], [address] Bilirubin.direct [Mass/Vol] 0.20 mg/dL Normal 0.00-0.30 [facility] Comment on above: Performed By: #### L 501.9985, L100.0100, L500.4100, L500.3400, L3300.4490, L501.9520, L500.2500 ####[facility] [address] [place], [address] Globulin (S) [Mass/Vol] 4.1 g/dL Normal 2.2-4.2 [facility] Comment on above: Performed By: #### L 501.9985, L100.0100, L500.4100, L500.3400, L3300.4490, L501.9520, L500.2500 ####[facility] [address] [place], [place], [phone] T PROT 7.5 g/dL Normal 6.4-8.2 [facility] Comment on above: Performed By: #### L 501.9985, L100.0100, L500.4100, L500.3400, L3300.4490, L501.9520, L500.2500 ####[facility] [address] [place], [address](881) Low density lipoprotein (LDL ) cholesterol measurementOrdered By: Erika Faye on 07-02-2024 Cholesterol in LDL [Mass/Vol] 44 mg/dL 0-130 [facility] MCV (mean corpuscular volume ) determinationOrdered By: Erika Faye on 07-02-2024 MCV (RBC) [Entitic vol] 104.2 fL High 80-94 [facility] Mean corpuscular hemoglobin (MCH) determinationOrdered By: Erika Faye on 07-02-2024 MCH (RBC) [Entitic mass] 33.2 pg High 27.0-32.0 [facility] Mean corpuscular hemoglobin concentration (MCHC) determinationOrdered By: Erika Faye on 07-02-2024 MCHC (RBC) [Mass/Vol] 31.8 g/dL Low 32-36 [facility] Mean platelet volume determi nationOrdered By: Erika Faye on 07-02-2024 Platelet mean volume (Bld) [Entitic vol] 11.8 fL 6.2-12.0 [facility] Monocyte percentageOrdered B y: Erika Faye on 07-02-2024 Monocytes/100 WBC (Bld) 10.4 % High 0-10 [facility] Neutrophil percentageOrdered By: Erika Faye on 07-02-2024 Neutrophils/100 WBC (Bld) 64.4 % 47-70 [facility] Nucleated red blood cell per centageOrdered By: Erika Faye on 07-02-2024 Nucleated RBC/100 WBC (Bld) [Ratio] 0 % 0-5 [facility] Platelet countOrdered By: Lupe Faye on 07-02-2024 Platelets (Bld) [#/Vol] 226 10*3/uL 150-450 [facility] Potassium measurementOrdered By: Erika Faye on 07-02-2024 Potassium [Moles/Vol] 5.8 mmol/L High 3.5-5.1 [facility] RBC Auto (Bld) [#/Vol]Ordere d By: Erika Faye on 07-02-2024 RBC (Bld) [#/Vol] 4.31 10*6/uL Low 4.6-6.2 [facility] Serum anion gap measurementO rdered By: Erika Faye on 07-02-2024 Anion gap [Moles/Vol] 5 mmol/L 5-15 [facility] Serum globulin measurementOr dered By: Erika Faye on 07-02-2024 Globulin (S) [Mass/Vol] 4.1 g/dL 2.2-4.2 [facility] Serum or plasma alanine mcbride otransferase (ALT) measurementOrdered By: Erika Faye on 07-02-2024 ALT [Catalytic activity/Vol] 23 U/L 16-61 [facility] Serum or plasma albumin daysi urement (mass/volume)Ordered By: Erika Faye on 07-02-2024 Albumin [Mass/Vol] 3.4 g/dL 3.2-5.0 [facility] Serum or plasma alkaline ralph sphatase measurementOrdered By: Erika Faye on 07-02-2024 ALP [Catalytic activity/Vol] 88 U/L 45-117 [facility] Serum or plasma calcium daysi urement (mass/volume)Ordered By: Erika Faye on 07-02-2024 Calcium [Mass/Vol] 9.4 mg/dL 8.5-10.1 [facility] Serum or plasma cholesterol measurement (mass/volume)Ordered By: Erika Faye on 07-02-2024 Cholesterol [Mass/Vol] 124 mg/dL <200 [facility] Comment on above: <200 mg/dL Desirable 200-240 mg/dL Borderline >240 mg/dL High Risk Serum or plasma creatinine m easurement (mass/volume)Ordered By: Erika Faye on 07-02-2024 Creatinine [Mass/Vol] 1.10 mg/dL 0.70-1.30 [facility] Comment on above: The validity of the calculated GFR & GFRAA in patients over 70 years has not been determined. Clinical correlation is essential. Serum or plasma thyroid stim ulating hormone (TSH) measurement (units/volume)Ordered By: Erika Faye on 07-02-2024 TSH Qn 1.680 uIU/mL 0.358-3.740 [facility] Serum or plasma urea nitroge n measurement (mass/volume)Ordered By: Erika Faye on 07-02-2024 Urea nitrogen [Mass/Vol] 21 mg/dL High 7-18 [facility] Sodium levelOrdered By: Chacha Faye on 07-02-2024 Sodium [Moles/Vol] 141 mmol/L 136-145 [facility] Thyroid Stim Hormone (TSH)on 07-02-2024 TSH 1.680 uIU/mL Normal 0.358-3.740 [facility] Comment on above: Performed By: #### L 501.9985, L100.0100, L500.4100, L500.3400, L3300.4490, L501.9520, L500.2500 ####[facility] [address] [place], [address] Total proteinOrdered By: Fred Faye on 07-02-2024 Protein [Mass/Vol] 7.5 g/dL 6.4-8.2 [facility] Triglycerides measurementOrd ered By: Erika Faye on 07-02-2024 Triglyceride [Mass/Vol] 65 mg/dL <199 [facility] Comment on above: The drugs N-Acetylcy steine and Metamizole may falsely depress this assay.Serum Triglycerides Reference Interval Normal <150 mg/dL Borderline high 150 - 199 mg/dL High 200 - 499 mg/dL Very High > or = 500 mg/dL Very low density lipoprotein (VLDL) cholesterol measurementOrdered By: Erika Faye on 07-02-2024 Very low density lipoprotein (VLDL) cholesterol measurement 13 mg/dL 5-40 [facility] White blood cell (WBC) count Ordered By: Erika Faye on 07-02-2024 WBC (Bld) [#/Vol] 7.0 10*3/uL 4.4-11.0 [facility] Gram stain for investigation of transfusion reactionOrdered By: Alden Lopez on 10-09-2023 Microscopic observation Gram stain Nom (Unsp spec) [facility] No Panel InformationOrdered By: Alden Lopez on 10-09-2023 Nasopharyngeal Culture Acinetobacter Lwoffi [facility] .Auto Diffon 01-06-2018 Basophils Auto #/vol (Bld) 0.00 10 3/mcL Normal 0.00-0.19 [facility] ([place] Comment on above: Performed By: #### C BC, ADIFF, ANEU, APTT, PRO ####[address] [place], [place] [address]#### TROP, BMP, GFR ####[address] [address] Basophils/100 WBC Auto (Bld) 0.5 % Normal 0.0-2.5 [facility] ([place] Comment on above: Performed By: #### C BC, ADIFF, ANEU, APTT, PRO ####[place] [address]#### TROP, BMP, GFR ####[address] [address] Eosinophils 0.30 10 3/mcL Normal 0.00-0.40 [facility] ([place] Comment on above: Performed By: #### C BC, ADIFF, ANEU, APTT, PRO ####[place] [address]#### TROP, BMP, GFR ####[address] [address] Eosinophils/100 leukocytes 4.4 % Normal 0.0-7.0 [facility] ([place] Comment on above: Performed By: #### C BC, ADIFF, ANEU, APTT, PRO ####[place] [address]#### TROP, BMP, GFR ####[address] [address] Lymphocytes 2.40 10 3/mcL Normal 0.77-3.85 [facility] ([place] Comment on above: Performed By: #### C BC, ADIFF, ANEU, APTT, PRO ####[place] [address]#### TROP, BMP, GFR ####[address] [address] Lymphocytes/100 leukocytes 33.0 % Normal 10.0-50.0 [facility] ([place] Comment on above: Performed By: #### C BC, ADIFF, ANEU, APTT, PRO ####[place] [address]#### TROP, BMP, GFR ####[address] [address] Monocytes 0.80 10 3/mcL Normal 0.15-1.00 [facility] ([place] Comment on above: Performed By: #### C BC, ADIFF, ANEU, APTT, PRO ####[address] [address]#### TROP, BMP, GFR ####[address] [address] Monocytes/100 leukocytes 11.4 % Normal 1.7-13.0 [facility] ([place] Comment on above: Performed By: #### C BC, ADIFF, ANEU, APTT, PRO ####[place] [address]#### TROP, BMP, GFR ####[address] [address] Neutrophils/100 WBC Auto (Bld) 50.7 % Normal 37.0-80.0 [facility] ([place] Comment on above: Performed By: #### C BC, ADIFF, ANEU, APTT, PRO ####[place] [address]#### TROP, BMP, GFR ####[address] [address] .GFRon 01-06-2018 GFR Non- 73 ml/min/1.73sqm Normal [facility] ([place] Comment on above: Result Comment: GFR Population [...] #### C BC, ADIFF, ANEU, APTT, PRO ####[place] [address] [place] [id number]#### TROP, BMP, GFR ####[address] [address] GFR 88 ml/min/1.73sqm Normal [facility] ([place] Comment on above: Result Comment: GFR Population [...] #### C BC, ADIFF, ANEU, APTT, PRO ####[place] [address]#### TROP, BMP, GFR ####[place] [address] .NEUABSon 01-06-2018 Neutrophil, Absolute 3.80 10 3/mcL Normal 2.85-6.16 A [facility] ([place]) Comment on above: Performed By: #### C BC, ADIFF, ANEU, APTT, PRO ####[place] [id number]#### TROP, BMP, GFR ####[place] [address] APTTon 01-06-2018 aPTT None Normal [facility] ([place] Comment on above: Performed By: #### C BC, ADIFF, ANEU, APTT, PRO ####[place] [address]#### TROP, BMP, GFR ####[place] [address] aPTT 34.1 s Normal 25.1-37.9 [facility] ([place] Comment on above: Result Comment: For Heparin anticoagulation therapy, the recommendedtherapeutic range is: 47.7-87.7 seconds (1.5 - 2.5 the normalplasma mean). Patients on heparin therapy may have an extreme result. Performed By: #### C BC, ADIFF, ANEU, APTT, PRO ####[place] [address]#### TROP, BMP, GFR ####[place] [address] BMPon 01-06-2018 BUN/Creatinine Ratio 24 ratio Normal 7-27 [facility] ([place]) Comment on above: Performed By: #### C BC, ADIFF, ANEU, APTT, PRO ####[place] [address]#### TROP, BMP, GFR ####[place] [address] Calcium 9.7 mg/dL Normal 8.4-10.2 [facility] ([place] Comment on above: Performed By: #### C BC, ADIFF, ANEU, APTT, PRO ####[place] [address]#### TROP, BMP, GFR ####[place] [address] Chloride 104 mmol/L Normal 98-107 [facility] ([place] Comment on above: Performed By: #### C BC, ADIFF, ANEU, APTT, PRO ####[place] [address]#### TROP, BMP, GFR ####[place] [address] CO2 24 mmol/L Normal 23-31 [facility] ([place] Comment on above: Performed By: #### C BC, ADIFF, ANEU, APTT, PRO ####[place] [address]#### TROP, BMP, GFR ####[place] [address] Creatinine 1.04 mg/dL Normal 0.70-1.30 [facility] ([place] Comment on above: Performed By: #### C BC, ADIFF, ANEU, APTT, PRO ####[address] [address]#### TROP, BMP, GFR ####[address] [address] Electrolyte Balance 11.0 mEq/L Normal [facility] ([place] Comment on above: Performed By: #### C BC, ADIFF, ANEU, APTT, PRO ####[place] [address]#### TROP, BMP, GFR ####[address] [address] Glucose mass conc 117 mg/dL High 80-115 [facility] ([place] Comment on above: Performed By: #### C BC, ADIFF, ANEU, APTT, PRO ####[place] [address]#### TROP, BMP, GFR ####[place] [address] Potassium molar conc 4.9 mmol/L Normal 3.5-5.1 [facility] ([place]) Comment on above: Performed By: #### C BC, ADIFF, ANEU, APTT, PRO ####[place] [address]#### TROP, BMP, GFR ####[place] [address] Sodium 139 mmol/L Normal 136-145 [facility] ([place] Comment on above: Performed By: #### C BC, ADIFF, ANEU, APTT, PRO ####[place] [address]#### TROP, BMP, GFR ####[place] [address] Urea nitrogen 25 mg/dL High 7-18 [facility] ([place] Comment on above: Performed By: #### C BC, ADIFF, ANEU, APTT, PRO ####[place] [address]#### TROP, BMP, GFR ####[place] [address] CBCon 01-06-2018 Erythrocyte distribution width Auto Ratio (RBC) 14.5 % Normal 11.5-14.5 [facility] ([place] Comment on above: Performed By: #### C BC, ADIFF, ANEU, APTT, PRO ####[place] [address]#### TROP, BMP, GFR ####[place] [address] Erythrocytes (RBC) 4.81 10 6/mcL Normal 4.04-6.13 [facility] ([place]) Comment on above: Performed By: #### C BC, ADIFF, ANEU, APTT, PRO ####[place] [address]#### TROP, BMP, GFR ####[place] [address] Hematocrit (HCT) 45.9 % Normal 42.0-52.0 [facility] ([place] Comment on above: Performed By: #### C BC, ADIFF, ANEU, APTT, PRO ####[place] [address]#### TROP, BMP, GFR ####[place] [address] Hemoglobin mass conc (Bld) 15.8 G/dL Normal 14.0-18.0 [facility] ([place] Comment on above: Performed By: #### C BC, ADIFF, ANEU, APTT, PRO ####[place] [address]#### TROP, BMP, GFR ####[place] [address] MCH 32.7 pg High 27.0-31.2 [facility] ([place] Comment on above: Performed By: #### C BC, ADIFF, ANEU, APTT, PRO ####[place] [address]#### TROP, BMP, GFR ####[address] [address] MCHC mass conc (RBC) 34.3 G/dL Normal 31.8-35.4 [facility] ([place]) Comment on above: Performed By: #### C BC, ADIFF, ANEU, APTT, PRO ####[place] [address]#### TROP, BMP, GFR ####[place] [address] MCV 95.4 fL High 80.0-94.0 [facility] ([place] Comment on above: Performed By: #### C BC, ADIFF, ANEU, APTT, PRO ####[place] [address]#### TROP, BMP, GFR ####[place] [address] Platelet mean volume (PMV) 9.3 fL Normal 7.4-10.4 [facility] ([place] Comment on above: Performed By: #### C BC, ADIFF, ANEU, APTT, PRO ####[place] [address]#### TROP, BMP, GFR ####[place] [address] Platelets 203 10 3/mcL Normal 130-400 [facility] ([place] Comment on above: Performed By: #### C BC, ADIFF, ANEU, APTT, PRO ####[place] [address]#### TROP, BMP, GFR ####[place] [address] WBC (Leukocytes) 7.40 10 3/mcL Normal 4.60-10.80 [facility] [place] Comment on above: Performed By: #### C BC, ADIFF, ANEU, APTT, PRO ####[place] [address]#### TROP, BMP, GFR ####[place] [address] MGon 01-06-2018 Magnesium 2.0 mg/dL Normal 1.8-2.4 [facility] ([place] Comment on above: Performed By: #### M G ####[address] Emergency Room Note on 01-06-2018 [place] [facility] Room Note Normal [facility] ([place]) PROon 01-06-2018 INR Coag RelTime (PPP) 1.0 {INR} Normal 0.9-1.2 [facility] ([place]) Comment on above: Result Comment: Dominick dard Dose 2.0 - 3.0High Dose 2.5 - 3.5The recommended therapeutic range for oral anticoagulanttherapy is:LOW RISK: Prophylaxis of venous thrombosis INR: 2.0 - 3.0 Treatment of pulmonary embolism 2.0 - 3.0 Prevention of systemic embolism 2.0 - 3.0HIGH RISK: Mechanical prosthetic valves 2.5 - 3.5 Performed By: #### C BC, ADIFF, ANEU, APTT, PRO ####[place] [address]#### TROP, BMP, GFR ####[place] [address] Prothrombin time (PT) Coag time (PPP) 10.1 s Normal 9.3-14.6 [facility]) Comment on above: Performed By: #### C BC, ADIFF, ANEU, APTT, PRO ####[place] [address]#### TROP, BMP, GFR ####[place] [address] Pat Eduon 01-06-2018 Pat Edu Normal [facility] ([place]) Patient Summary Documentson 01-06-2018 Patient Summary Documents Normal [facility]) TROPon 01-06-2018 Troponin I.cardiac mass conc ng/mL Normal 0.000-0.040 [facility] ([place] Comment on above: Result Comment: Trop onin I reference range: 0.00-0.040 ng/mL Negative and non-diagnostic. >0.040 ng/mL Consistent with cardiac damage, increased clinical risk and possibility of myocardial infarction. Serial measurements, a rise & fall in test results, clinical history, appropriate symptoms and/or ECG changes may help assess possibility of NC. *Other non-acute coronary syndrome conditions such as CHF, myocarditis, pulmonary emboli, sepsis and cardiac surgery could result in myocardial damage and increased troponin levels. Performed By: #### C BC, ADIFF, ANEU, APTT, PRO ####[address] [place], [place] [address]#### TROP, BMP, GFR ####[place] [id number] [place] [address] XR CHEST 1 VIEWon 01-06-2018 XR CHEST [...] PM Sign Date: 01/06/2018 12:13:40 PM Normal [facility] ([place]) Vital Signs Date Time Vital Sign Value Performing Clinician Facility 01-27-2025 07:56-0400 Body height 185.[address] Erika Faye MD Work Phone: [facility] 01-27-2025 07:56-0400 Body mass index (BMI) [Ratio] 32.4 kg/m2 Dr. Erika Faye MD Work Phone: [facility] 01-27-2025 07:56-0400 Body weight 111.[address] Erika Faye MD Work Phone: [facility] 01-27-2025 07:56-0400 Diastolic blood pressure 75 mm[Hg] Dr. Erika Faye MD Work Phone: [facility] 01-27-2025 07:56-0400 Heart rate 53 /min Dr. Erika Faye MD Work Phone: [facility] 01-27-2025 07:56-0400 Respiratory rate 16 /min Dr. Erika Faye MD Work Phone: [facility] 01-27-2025 07:56-0400 Systolic blood pressure 135 mm[Hg] Dr. Erika Faye MD Work Phone: [facility] 10-27-2024 08:32-0400 Body height 185.[address] Erika Faye MD Work Phone: [facility] 10-27-2024 08:32-0400 Body mass index (BMI) [Ratio] 33.5 kg/m2 Dr. Erika Faye MD Work Phone: [facility] 10-27-2024 08:32-0400 Body weight 115.[address] Erika Faye MD Work Phone: [facility] 10-27-2024 08:32-0400 Diastolic blood pressure 65 mm[Hg] Dr. Erika Faye MD Work Phone: [facility] 10-27-2024 08:32-0400 Heart rate 81 /min Dr. Erika Faye MD Work Phone: [facility] 10-27-2024 08:32-0400 Respiratory rate 18 /min Dr. Erika Faye MD Work Phone: [facility] 10-27-2024 08:32-0400 Systolic blood pressure 136 mm[Hg] Dr. Erika Faye MD Work Phone: [facility] 08-12-2024 08:23-0500 Body height 185.4 cm Dino Aguirre MD Work Phone: [facility] 08-12-2024 08:23-0500 Body mass index (BMI) [Ratio] 34.43 kg/m2 Dino Aguirre MD Work Phone: [facility] 08-12-2024 08:23-0500 Body weight 118.39 kg Dino Aguirre MD Work Phone: [facility] 08-12-2024 08:23-0500 Diastolic blood pressure 72 mm[Hg] Dino Aguirre MD Work Phone: [facility] 08-12-2024 08:23-0500 Heart rate 72 /min Dino Aguirre MD Work Phone: [facility] 08-12-2024 08:23-0500 Systolic blood pressure 130 mm[Hg] Dino Aguirre MD Work Phone: [facility] Encounters Encounter Date Encounter Type Care Provider Facility Start: 04-11-2025 End: 04-11-[address] ERIKA FAYE MD Facility:[facility] Start: 04-11-2025 End: 04-11-[address] ERIKA FAYE MD [facility] Start: 04-08-[address] [facility] Facility:[facility] Start: 04-08-2025 End: 04-08-2025 ambulatory Efrain Meeks NP Facility:[facility] Start: 03-23-2025 End: 03-23-[address] ERIKA FAYE MD Facility:[facility] Start: 03-23-2025 End: 03-23-[address] ERIKA FAYE MD [facility] Start: 01-27-2025 End: 01-27-2025 Patient encounter procedure Efrain Meeks [employer] -[facility] Work Phone: Start: 01-27-2025 End: 01-27-[address] Erika Faye MD Work Phone: -[facility] Start: 01-07-2025 End: 01-07-[address] Erika Faye MD Work Phone: -[facility] Start: 01-07-2025 End: 01-07-[address] Erika Faye MD -[facility] [place] Work Phone: Start: 01-07-2025 End: 01-07-2025 ambulatory Erika Faye Facility:[facility] Start: 11-23-2024 ambulatory [facility] Facility:[facility] Start: 11-23-2024 Non-patient / Non-visit Dr. Hubert abbott MD -[facility] Start: 11-23-2024 End: 11-23-[address] Erika Faye MD Work Phone: [facility] Work Phone: Start: 11-23-2024 End: 11-23-[address] Hubert Garcia MD -[facility] Work Phone: Start: 11-23-2024 End: 11-23-2024 ambulatory [facility] Facility:[facility] Start: 10-27-2024 End: 10-27-[address] Hubert Garcia MD -[facility] Work Phone: Start: 10-27-2024 End: 10-27-[address] Erika Faye MD Work Phone: [facility] Work Phone: Start: 08-12-2024 End: 08-12-2024 Office outpatient new 30 minutes Dino Aguirre MD Work Phone: [facility] Comment on above: Palpitations (Primar y Dx); Ventricular premature depolarization Start: 08-12-2024 End: 08-12-2024 ambulatory DINO Padilla [facility] Start: 07-21-2024 End: 07-21-2024 ambulatory LE PALMA MD~[id number] [facility] Start: 07-16-2024 End: 07-16-[address] Erika Faye MD -Labor[facility], [place] Work Phone: Start: 07-16-2024 End: 07-16-2024 ambulatory Erika Faye Facility:[facility] Start: 07-02-2024 End: 07-02-[address] Erika Faye MD -Labor[facility], [place] Work Phone: Start: 07-02-2024 End: 07-02-2024 ambulatory Erikapatricia Faye Facility:[facility] Start: 10-09-2023 End: 10-09-2023 ambulatory [facility] Work Phone: Start: 10-09-2023 End: 10-09-2023 Patient encounter procedure [facility] [place] Work Phone: Start: 01-06-2018 End: [...] artery bypass graft x 3 Dr. Hubert Garcia MD Comment on above: SVG to the obtuse ma rginal and SVG to the right PDA totally occluded. MATTHEWS to LAD patent. History of coronary artery bypass grafting History of coronary artery bypass graft x 3 Efrain Meeks DEVELOPMENTAL MATHEMATICS INSTRUCTOR-C Plan of Treatment Date Care Activity Detail Author Start: 01-27-2025 Evaluation of diagnostic study results [facility] Start: 10-27-2024 Evaluation of diagnostic study results [facility] Start: 02-03-1978 DTaP/Tdap/Td Vaccines (1 - Tdap) DTaP/Tdap/Td Vaccines (1 - Tdap) [facility] Start: 02-03-1974 Hepatitis C screening Hepatitis C Screening [facility] Start: 02-03-1966 Glaucoma screening Diabetes: Retinopathy Screening [facility] Start: 1955 Hemoglobin A1c measurement Diabetes: Hemoglobin A1C [facility] Start: 1956 Lipid panel Lipid Panel [facility] Start: 1956 Screening for malignant neoplasm of colon [facility] Start: 1956 Urine screening for protein Diabetes: Urine Protein Screening [facility] Start: 1955 Yearly Adult Physical Yearly Adult Physical [facility] ECG 12 lead (Clinic Performed) ECG 12 lead (Clinic Performed) ECG Routine Palpitations 08/12/2024 8:[address] [facility] Service Area Work Phone: [facility] Immunizations Immunization Date Immunization Notes Care Provider Fa cility 09-19-2020 Covid (Pfizer) [facility] 08-29-2020 Covid (Pfizer) [facility] 04-13-2019 influenza, injectabl e, quadrivalent, preservative free Dino Aguirre MD Work Phone: [facility] Work Phone: Payers Date Payer Category Payer Private Health Insurance [facility] [id number] 2024 Self-pay [id number] 2022 Blue Cross Blue Shie ld Managed Care [facility] [id number] 2018 Medicare [id number] 1959 Unknown [id number] 1956 Unknown [id number]. 2.598 1956 Unknown [id number]. 2.1244 1956 Unknown [id number]. 2.627 1956 Unknown [id number]. 2.627 Medicare MEDICARE A ONLY [id number] Unknown [id number]. 2.462 Unknown [id number] [id number]. 2.462 Unknown [id number] 2.840.1.191819.3.579. 2.462 Unknown [id number] .[id number]. 2.462 Unknown [id number]. 2.462 Unknown [id number] [id number]. 2.462 Unknown [id number] 2.840.1.391940.3.579. 2.462 Unknown [id number] [id number]. 2.462 Unknown [id number]. 2.462 Social History Date Type Detail Facility Start: [facility]04-[facility]22 [facility] Start: 1955 Sex Assigned At Male [facility] Start: 08-12-2024 [facility] Never smoked tobacco [facility] Work Phone: Start: 08-12-2024 Tobacco use and exposure Smokeless tobacco non-user [facility] Work Phone: Start: 08-12-2024 Alcoholic beverage intake Ex-drinker (finding) [facility] Work Phone: Start: 08-12-2024 History of Social function [facility] Work Phone: Start: 08-12-2024 [facility] Work Phone: Start: 1955 Sex assigned at Not on file [facility] Work Phone: Start: 08-02-2024 End: 08-12-2024 Exposure to SARS-CoV-2 (event) Not sure [facility] Start: 11-04-2022 [facility] daily (finding) [facility] Start: 01-27-2025 [facility] (finding) [facility] Tobacco smoking status [facility] Start: 01-06-2018 Sex Male (finding) [facility] Clinical Note 04-11-2025 Note Date & Type Note Facility 04-11-2025 Note Exam Date Time Procedure Performing Provider Status 04/11/25 7:37 AM US Renal HARMONY CERVANTES MD; Auth ( Verified) [id number] ORIGINAL EXAMINATION: LIMITED RETROPERITONEAL [id number]/27/2025 7:42 am Ultrasound retroperitoneum Complete: Attention Urinary tract COMPARISON: CT chest 03/23/2025 TECHNIQUE: This report is based on interpretation of permanently recorded ultrasound images. HISTORY: ORDERING SYSTEM PROVIDED HISTORY: Reason for Exam: RENAL CYST, abnormal findings on chest CT FINDINGS: Right kidney: 12.5 x 7.2 x 7.0 cm. There is normal cortical thickness and borderline increased echogenicity. No pelvocaliectasis, shadowing stone or solid mass is seen. There are multiple small benign appearing cysts in the kidney largest is 2.8 cm. Left kidney: 13.1 x 7.4 x 6.2 cm. Normal cortical thickness and echogenicity with no pelvocaliectasis, shadowing stone or suspicious mass. There are multiple left renal cysts at least 3 are seen in the upper portion 2.5 cm, 2.7 cm and 1.3 cm. No other renal lesion is seen. The urinary bladder is moderately distended with volume of 120 cc. There is bladder wall thickening and trabeculation. Postvoid volume is only 9 cc. Prostate volume estimated 32 cc.. There is no free fluid seen in the abdomen. IMPRESSION: Bilateral simple appearing renal cysts. Borderline increased right renal echogenicity, correlate clinically to exclude medical renal disease. Bladder wall thickening and trabeculation may be from outlet obstruction. No significant postvoid residual. Interpreted by: Harmony Cervantes MD Preliminary Report By: Harmony Cervantes MD Electronically signed By Harmony Cervantes MD Dictated Date: 04/11/2025 8:59:18 AM Prelim Date: 04/11/2025 9:02:07 AM Sign Date: 04/11/2025 9:02:07 AM Ordering Provider: ERIKA FAYE RP [facility] Evaluation note 10-27-2024 Note Date & Type Note Facility 10-27-2024 Evaluation note Diagnosis Onset Date Resolution COPD (chronic obstructive pulmonary disease) chronic October 27, 2024 8:46am Coronary artery disease chronic [facility] 2024 8:46am Diabetes mellitus, type 2 chronic October 27, 2024 8:46am Dyslipidemia chronic October 27 8:46am Frequent PVCs chronic October 27, 2 025 8:46am History of coronary artery bypass graft x 3 chronic October 8:46am Hypertension chronic October 27 8:46am Ischemic cardiomyopathy chronic [facility] 2024 8:46am Obesity (BMI 30.0-34.9) chronic [facility] 2024 8:46am RUTH (obstructive sleep apnea) chronic October 27, 2024 8:46am Presence of stent in coronary artery chronic October 27, 2024 8:46am [facility] Work Phone: Evaluation note 10-27-2024 Note Date & Type Note Facility 10-27-2024 Evaluation note Diagnosis Onset Date Resolution COPD (chronic obstructive pulmonary disease) chronic October 27, 2024 8:46am Coronary artery disease chronic ay 2024 8:46am Diabetes mellitus, type 2 [...] coronary artery chronic October 27, 2024 8:46am COPD (chronic obstructive pulmonary disease) chronic January 27 7:49am Coronary artery disease chronic A ugust 2024 7:49am Diabetes mellitus, type 2 chronic January 27 7:49am Dyslipidemia chronic January 27, 2025 7:49am Frequent PVCs chronic January 7:49am History of coronary artery bypass graft x 3 chronic January 142024 7:49am Hypertension chronic January 27, 2025 7:49am Ischemic cardiomyopathy chronic A [facility] 2024 7:49am Obesity (BMI 30.0-34.9) chronic A ugust 2024 7:49am RUTH (obstructive sleep apnea) chronic January 27 7:49am Presence of stent in coronary artery chronic January 27 7:49am [facility] [employer] Work Phone: History of Present illness Narrative [...] I believe. He underwent 3-vessel CABG at [facility] in [place], as he was living in [place] at the time. He has had some percutaneous interventions since then, but denies ever suffering asymptomatic myocardial infarction. The patient a woman from [place], [place], in 2007, and moved to [facility]. He has been followed by cardiology, [...] capacity and fewer palpitations. The patient attended [employer] in the early 1970s, and got a degree in [employer] management. He worked in the past today [employer] in [place], [place]. He currently works 32 hours a [...] complications Palpitations Hyperkalemia Atherosclerotic heart disease of [place] coronary artery without angina pectoris Objective: Vitals: [...] than encouraging the patient to take some [id number] magnesium, which may be beneficial. 2. He [...] Dino Aguirre MD documented in this encounter [facility] Work Phone: Evaluation + Plan note Note Date & Type Note Facility Evaluation + Plan note No data available for this section [facility] Evaluation note Note Date & Type Note Facility [facility] Evaluation note Note Date & Type Note Facility Evaluation note Diagnosis Palpitations- Primary Ventricular premature depolarization Other premature beats documented in this encounter [facility] Work Phone: Hospital Discharge instructions Note Date & Type Note Facility Hospital Discharge instructions No data available for this section [facility] Progress note Note Date & Type Note Facility Progress note No data available for this section [facility] Reason for referral (narrative) Note Date & Type Note Facility Reason for referral (narrative) No reason for referral information available [facility] Work Phone: Summary Purpose Family History No Family History Records FoundNo Family History Records FoundNo Family History Records Found No data available for this section No data available for this section No Family History Records FoundNo Family History Records Found Advance Directives No Advanced Directives Records Found Advance Directive Response Recorded Date/ Time Living Will Yes November 03, 2022 5 :56pm Power of B Operator Yes November 03, 2022 5:56pm Chief Complaint and Reason for Visit Chief Complaint Admit Date ESTABLISH (SELF) October 27, 2024 8:46a m Chief Complaint Admit Date ESTABLISH (SELF) October 27, 2024 8:46a m Atherosclerotic heart disease of [place] coronary a November 23, 2024 6:07am Atherosclerotic heart disease of [place] coronary a November 23, 2024 10:33am Reason [...] in coronary artery October 27, 2024 8:46am Chief Complaint Admit Date ESTABLISH (SELF) October 27, 2024 8:46a m Atherosclerotic heart disease of [place] coronary a November 23, 2024 6:07am Atherosclerotic heart disease of [place] coronary a November 23, 2024 10:33am FASTING/ COPY DR. GARCIA January 07, 2025 7:06am Chief Complaint Admit Date ESTABLISH (SELF) October 27, 2024 8:46a m Atherosclerotic heart disease of [place] coronary a November 23, 2024 6:07am Atherosclerotic heart disease of [place] coronary a November 23, 2024 10:33am FASTING/ COPY DR. GARCIA January 07, 2025 7:06am 3 M FU January 27, 2025 7: 49am Reason for Visit Admit Date COPD (chronic [...] in coronary artery October 27, 2024 8:46am COPD (chronic obstructive pulmonary dise ase) January 27, 2025 7:49am Coronary artery disease January 27 7:49am Diabetes mellitus, type 2 January 27, 2 025 7:49am Dyslipidemia January 27, 2025 7: 49am Frequent PVCs January 27, 2025 7: 49am History of coronary artery bypass graft x 3 January 27, 2025 7:49am Hypertension January 27, 2025 7: 49am Ischemic cardiomyopathy January 27 7:49am Obesity (BMI 30.0-34.9) January 27 7:49am RUTH (obstructive sleep apnea) January 7:49am Presence of stent in coronary artery Jan us2024 7:49am Additional Source Comments (unrecognized sect ion and content) No Status Records FoundNo Status Records FoundNo Status Records FoundNo Status Records FoundNo Status Records Found INFORMATION SOURCE (unrecogn ized section and content) DATE CREATED AUTHOR 01/07/2018 [facility] ([place]) DATE CREATED AUTHOR AUTHOR'S ORGANIZ ATION 07/24/2024 [facility] DATE CREATED AUTHOR AUTHOR'S ORGANIZ ATION 08/14/2024 [facility] DATE CREATED AUTHOR AUTHOR'S ORGANIZ ATION 04/17/2025 [facility] DATE CREATED AUTHOR AUTHOR'S ORGANIZ ATION 04/19/2025 [facility] Care Teams (unrecognized sec [...] 2024 End: October 27, 2024 Dr. Hubert Garcia MD Attending Provider Active Start: October 27, 2024 End: October 27, 2024 Team Status: Inactive Member Role Status Dates Dr. Erika Faye MD Primary Care Provider Active Start: November 23, 2024 End: November 23, 2024 Dr. Hubert Garcia MD Attending Provider Active Start: November 23, 2024 End: November 23, 2024 Dr. Hubert Garcia MD Referring Provider Active Start: November 23, 2024 End: November 23, 2024 Team Status: Active Member Role Status Dates Dr. Erika Faye MD Primary Care Provider Active Start: November 23, 2024 Dr. Hubert Garcia MD Attending Provider Active Start: November 23, 2024 Dr. Hubert Garcia MD Referring Provider Active Start: November 23, 2024 Dr. Hubert Garcia MD Other Provider Active Star t: November 23, 2024 Team Status: Active Member Role/Relationship Status Dates Dr. Erika Faye MD Primary Care Provider Active Team Status: Inactive Member Role/Relationship Status Dates Dr. Erika Faye MD Primary Care Provider Active Start: October 27, 2024 End: October 27, 2024 Dr. Erika Faye MD Referring Provider Active Start: October 27, 2024 End: October 27, 2024 Dr. Hubert Garcia MD Attending Provider Active Start: October 27, 2024 End: October 27, 2024 Team Status: Inactive Member Role/Relationship Status Dates Dr. Erika Faye MD Primary Care Provider Active Start: November 23, 2024 End: November 23, 2024 Dr. Hubert Garcia MD Attending Provider Active Start: November 23, 2024 End: November 23, 2024 Dr. Hubert Garcia MD Referring Provider Active Start: November 23, 2024 End: November 23, 2024 Team Status: Active Member Role/Relationship Status Dates Dr. Erika Faye MD Primary Care Provider Active Start: November 23, 2024 Dr. Hubert Garcia MD Attending Provider Active Start: November 23, 2024 Dr. Hubert Garcia MD Referring Provider Active Start: November 23, 2024 Dr. Hubert Garcia MD Other Provider Active Star t: November 23, 2024 Team Status: Inactive Member Role/Relationship Status Dates Dr. Erika Faye MD Primary Care Provider Active Start: January 07, 2025 End: January 07, 2025 Dr. Erika Faye MD Attending Provider Active Start: January 07, 2025 End: January 07, 2025 Dr. Erika Faye MD Referring Provider Active Start: January 07, 2025 End: January 07, 2025 Dr. Hubert Garcia MD Other Provider Active Star t: January 07, 2025 End: January 07, 2025 Team Status: Inactive Member Role/Relationship Status Dates Dr. Erika Faye MD Primary Care Provider Active Start: January 27, 2025 End: January 27, 2025 Dr. Erika Faye MD Referring Provider Active Start: January 27, 2025 End: January 27, 2025 Efrain Meeks DEVELOPMENTAL MATHEMATICS INSTRUCTOR, DEVELOPMENTAL MATHEMATICS INSTRUCTOR-C Attending Provider Active S tart: January 27, 2025 End: January 27, 2025 Goals (unrecognized section and content) Goals may be documented in a n alternate sectionGoals may be documented in an alternate sectionGoals may be documented in an alternate sectionGoals may be documented in an alternate sectionGoals may be documented in an alternate section No data available for this section No data available for this section Reason for Visit (unrecogniz ed section and content) Reason Comments New Patient Visit Specialty Diagnoses / Procedures Referred By [employer] t Referred To Contact Diagnoses Palpitations Procedures ECG 12 lead (Clinic Performed) [place] [id number] [facility] [address] [place] [address] Phone: tel: fax: Referral ID Status Reason Start Date Expiration Date V isits Requested Visits Authorized [id number] Authorized 08/12/2024 08/12/2025 1 1 FOR RECORDS [...] BE BASED ON THE PRIMARY CLINICAL RECORDS. [employer] provides no warranty or guarantee of the accuracy or completeness of information in this document.
[2025-06-03 11:04] LABS: Creatinine, Urine (random) 104.00 mg/dL (39.00-259.00)
[2025-06-03 11:08] LABS: AST(SGOT) 19 U/L (<=37); Alanine Aminotransfer ALT/SGPT 25 U/L (<=46); Albumin, Serum 4.5 g/dL (3.4-4.8); Alkaline Phosphatase 81 U/L (40-129); Anion Gap 10 (5-15); BUN 21 mg/dL (4-19); BUN/Creat Ratio 20.7 RATIO (10-20); Calcium,Total 9.8 mg/dL (7.6-11.0); Carbon Dioxide 27.3 mmol/L (21.0-32.0); Chloride 105 mmol/L (98-108); Cholesterol 176 mg/dL (<=200); Globulin 3.0 g/dL (2.2-4.2); Glucose 99 mg/dL (70-99); Low Density Lipoprotein Calc. 72 mg/dL; Potassium 5.2 mmol/L (3.3-5.1); Triglycerides 66 mg/dL; Very Low Density Lipoprotein 13 mg/dL (5-40); cholesterol:hdl ratio screen 1.93
[2025-06-03 11:16] LABS: Microalbumin,Random Urine 792.0 mg/L (<20 mg/L)
[2025-06-04 04:07] LABS: LDL, Direct 120295 77 mg/dL (0-99)
== END | disposition home or self-care (01) ==
LOC: MTLAB 07:06
PROVIDERS: PCP Family Medicine; Referring Provider Family Medicine; Visit Provider Family Medicine
DX: I50.22 Chronic systolic (congestive) heart failure (principal); J44.9 Chronic obstructive pulmonary disease, unspecified; E11.59 Type 2 diabetes mellitus with other circulatory complications; E11.21 Type 2 diabetes mellitus with diabetic nephropathy; E03.9 Hypothyroidism, unspecified
CPT/HCPCS: 36415; 80053; 80061; 82043; 82570; 83036; 83721; 84443

== ENCOUNTER → 2025-06-13 | Outpatient (CLI) | payer BC, SELFPAY ==
[2025-06-13 15:25] LABS: Anion Gap 11 (7-18); BUN 24 mg/dL (4-19); BUN/Creat Ratio 20.9 RATIO (10-20); Calcium,Total 9.4 mg/dL (7.6-11.0); Carbon Dioxide 22.5 mmol/L (20.0-29.0); Chloride 105 mmol/L (96-106); Glucose 102 mg/dL (70-99); Potassium 5.1 mmol/L (3.5-5.1)
== END | disposition home or self-care (01) ==
LOC: MTLAB 11:22
PROVIDERS: PCP Family Medicine; Referring Provider Family Medicine; Visit Provider Family Medicine
DX: E87.5 Hyperkalemia (principal)
CPT/HCPCS: 36415; 80048